=== PATIENT | male | born 1940 | race Caucasian/White ===

== ENCOUNTER 2017-01-12 09:52 | Emergency (ER) | payer MEDICARE, BC ==
[2017-01-12] MEDS ORDERED: Sodium Chloride 0.9% 10 ML Syringe FLUSH PRN (10:13)
[2017-01-12] MEDS ORDERED: Sodium Chloride 0.9% 1,000 ML IV SCH ×2 (10:15→12:45)
--- NOTE | 2017-01-12 10:39 | EDM.PDOC ---
ED HPI GENERAL MEDICAL PROBLEM - General Chief Complaint: General Stated Complaint: abd pain LLQ Time Seen by Provider: 01/12/17 10:15 Source of Information: Reports: Patient History Limitations: Reports: No limitations - History of Present Illness INITIAL COMMENTS - FREE TEXT/NARRATIVE: The patient presents with complaint of left costophrenic angle pain that radiates down the left flank to the LLQ and down towards the testicle. He reports the pain has come and gone for the past two days and this morning prior to arrival in the ER the pain was up to 8/10 in severity and he states it is cramping and stabbing. He currently rates the pain at 4/10. He denies nausea, vomiting, and diarrhea. He denies hematochezia or melena. He denies other symptoms or complaints. Left Lower Abdominal Pain Score (Numeric/FACES): 6 - Related Data Allergies Allergy/AdvReac Type Severity Reaction Status Date / Time dutasteride [From Avodart] Allergy Unknown Cannot Verified 01/12/17 09:54 Remember [id number] Reductase Allergy Muscle Verified 01/12/17 09:54 Inhibitor Weakness Home Meds: Home Meds Aspirin [Ecotrin] 325 mg PO DAILY 01/12/17 [History] Cinnamon Bark [Cinnamon] 500 mg PO DAILY 01/12/17 [History] Fenofibrate,Micronized [Fenofibrate] 134 mg PO DAILY 01/12/17 [History] Lisinopril 10 mg PO DAILY@1800 01/12/17 [History] Multivitamin [Multivitamins] 1 each PO DAILY 01/12/17 [History] metFORMIN [Glucophage] 500 mg PO DAILY 01/12/17 [History] Past Medical History - Past Health History Medical/Surgical History: Denies Medical/Surgical History Genitourinary History: Reports: Renal calculus (Multiple in past.) ED ROS GENERAL - Review of Systems Review Of Systems: ROS reveals no pertinent complaints other than HPI. ED EXAM, GENERAL - Physical Exam Exam: See Below Exam Limited By: No limitations General Appearance: alert, WD/WN, no apparent distress Eye Exam: bilateral eye: EOMI, normal inspection, PERRL Ears: normal external exam, normal canal, hearing grossly normal, normal TMs Ear Exam: bilateral ear: auricle normal, canal normal, TM normal Nose: normal inspection, normal mucosa, no blood Throat/Mouth: Normal inspection, Normal lips, Normal teeth, Normal gums, Normal oropharynx, Normal voice, No airway compromise Head: atraumatic, normocephalic Neck: normal inspection, supple, non-tender, full range of motion. No: lymphadenopathy (L), lymphadenopathy (R), tender lateral, tender midline Respiratory/Chest: no respiratory distress, lungs clear, normal breath sounds, no accessory muscle use, chest non-tender Cardiovascular: normal peripheral pulses, regular rate, rhythm, no edema, no gallop, no murmur, no rub Peripheral Pulses: 2+: radial (L), radial (R), dorsalis pedis (L), dorsalis pedis (R) GI/Abdominal: normal bowel sounds, soft, no organomegaly, no distention, tender (Mild diffuse tenderness LLQ. ). No: distended, guarding, rigid, rebound Back Exam: normal inspection, full range of motion, CVA tenderness (L). No: CVA tenderness (R), paraspinal tenderness, vertebral tenderness Extremities: normal inspection, normal range of motion, non-tender, no pedal edema, normal capillary refill Neurological: alert, oriented, CN II-XII intact, normal cognition, normal gait, normal reflexes, no motor/sensory deficits Psychiatric: normal affect, normal mood Skin Exam: Warm, Dry, Intact, Normal color, No rash Lymphatic: no adenopathy Course - Vital Signs Last Recorded V/S: Last Vital Signs Temp 36.4 C 01/12/17 09:58 Pulse 62 01/12/17 10:54 Resp 16 01/12/17 10:54 BP 134/75 01/12/17 10:54 Pulse Ox 92 L 01/12/17 10:54 - Orders/Labs/Meds Orders: Active Orders 24 hr Category Date Time Status Peripheral IV Care [RC] . DIRECTED Care 01/12/17 10:13 Active Sodium Chloride 0.9% [Normal Saline] 1,000 ml Med 01/12/17 10:15 Active IV ASDIRECTED Sodium Chloride 0.9% [Normal Saline] 1,000 ml Med 01/12/17 12:45 Active IV ASDIRECTED Sodium Chloride 0.9% [Saline Flush] Med 01/12/17 10:13 Active 10 ml FLUSH ASDIRECTED PRN Tamsulosin [Flomax] Med 01/12/17 13:11 Once 0.4 mg PO ONETIME ONE Peripheral IV Insertion Adult [OM.PC] Routine Oth 01/12/17 10:13 Ordered Medication Orders Sodium Chloride (Normal Saline) 1,000 mls @ 150 mls/hr IV ASDIRECTED QUANG Last Infusion: 01/12/17 11:15 Dose: 999 mls/hr Admin: 01/12/17 10:31 Dose: 150 mls/hr Sodium Chloride (Normal Saline) 1,000 mls @ 999 mls/hr IV ASDIRECTED QUANG Sodium Chloride (Saline Flush) 10 ml FLUSH ASDIRECTED PRN PRN Reason: Keep Vein Open Labs: Laboratory Tests 01/12/17 01/12/17 01/12/17 Range/Units 10:20 10:20 11:00 WBC 7.6 (4.0-10.2) K/uL RBC 5.66 H (4.33-5.41) M/uL Hgb 16.9 H (13.1-16.8) g/dL Hct 50.7 H (39.0-49.0) % MCV 89.6 (84.0-98.0) fL MCH 29.9 (28.2-33.3) pg MCHC 33.3 (31.7-36.0) g/dL RDW 12.9 (11.2-14.1) % Plt Count 146 L (150-350) K/uL Neut % (Auto) 67.1 (45.0-80.0) % Lymph % (Auto) 26.4 (10.0-50.0) % [place] % (Auto) 4.9 (2.0-14.0) % Eos % (Auto) 1.2 (0.0-5.0) % Baso % (Auto) 0.4 (0.0-2.0) % Neut # (Auto) 5.08 (1.40-7.00) K/uL Lymph # (Auto) 2.00 (0.50-3.50) K/uL [place] # (Auto) 0.37 (0.00-1.00) K/uL Eos # (Auto) 0.09 (0.00-0.50) K/uL Baso # (Auto) 0.03 (0.00-0.20) K/uL Sodium 142 (136-145) mmol/L Potassium 4.2 (3.5-5.1) mmol/L Chloride 104 (98-107) mmol/L Carbon Dioxide 30.9 (21.0-32.0) mmol/L BUN 21 H (7-18) mg/dL Creatinine 1.26 H (0.51-1.17) mg/dL Est Cr Clr Drug Dosing TNP Estimated GFR (MDRD) 56 mL/min Glucose 194 H (74-106) mg/dL Calcium 9.2 (8.5-10.1) mg/dL Total Bilirubin 0.6 (0.2-1.0) mg/dL AST 64 H (15-37) U/L ALT 73 (12-78) U/L Alkaline Phosphatase 40 L (46-116) IU/L C-Reactive Protein < 0.1 (<=0.9) mg/dL Total Protein 7.3 (6.4-8.2) g/dL Albumin 4.0 (3.4-5.0) g/dL Specimen Type Urincc Urine Color Yellow Urine Appearance Slightly cloudy Urine pH 5.5 (5.0-9.0) Ur Specific [place] 1.025 (1.005-1.030) Urine Protein Trace H (NEGATIVE) mg/dL Urine Glucose (UA) Negative (NEGATIVE) mg/dL Urine Ketones Negative (NEGATIVE) mg/dL Urine Occult Blood Large H (NEGATIVE) Urine Nitrite Negative (NEGATIVE) Urine Bilirubin Negative (NEGATIVE) Urine Urobilinogen 0.2 (0.2-1.0) E.U./dL Ur Leukocyte Esterase Negative (NEGATIVE) Urine RBC 40-50 H /HPF Urine WBC 0-5 /HPF Urine Bacteria Few (NONE TO FEW) /HPF Meds: Medications Generic Name Dose Route Start Last Admin Trade Name Freq PRN Reason Stop Dose Admin Sodium Chloride 1,000 mls @ 150 mls/hr 01/12/17 10:15 01/12/17 11:15 Normal Saline IV 999 mls/hr ASDIRECTED QUANG Infusion Sodium Chloride 1,000 mls @ 999 mls/hr 01/12/17 12:45 Normal Saline IV ASDIRECTED QUANG Sodium Chloride 10 ml 01/12/17 10:13 Saline Flush FLUSH ASDIRECTED PRN Keep Vein Open Discontinued Medications Generic Name Dose Route Start Last Admin Trade Name Freq PRN Reason Stop Dose Admin Ketorolac Tromethamine 30 mg 01/12/17 10:41 01/12/17 10:46 Toradol IVPUSH 01/12/17 10:42 30 mg ONETIME ONE Administration Departure - Departure Time of Disposition: 13:15 Disposition: Home, Self-Care 01 Clinical Impression: Kidney stone on left side, Renal insufficiency, mild, Hyperglycemia, LFT elevation, Alkaline phosphatase elevation Referrals: Christina Sexton NP [Primary Care Provider] - Forms: ED Department Discharge - My Orders Last 24 Hours: My Active Orders 01/12/17 10:13 Peripheral IV Care [RC] . DIRECTED Sodium Chloride 0.9% [Saline Flush] 10 ml FLUSH ASDIRECTED PRN Peripheral IV Insertion Adult [OM.PC] Routine 01/12/17 10:15 Sodium Chloride 0.9% [Normal Saline] 1,000 ml IV ASDIRECTED 01/12/17 12:45 Sodium Chloride 0.9% [Normal Saline] 1,000 ml IV ASDIRECTED 01/12/17 13:11 Tamsulosin [Flomax] 0.4 mg PO ONETIME ONE - Assessment/Plan Last 24 Hours: My Active Orders 01/12/17 10:13 Peripheral IV Care [RC] . DIRECTED Sodium Chloride 0.9% [Saline Flush] 10 ml FLUSH ASDIRECTED PRN Peripheral IV Insertion Adult [OM.PC] Routine 01/12/17 10:15 Sodium Chloride 0.9% [Normal Saline] 1,000 ml IV ASDIRECTED 01/12/17 12:45 Sodium Chloride 0.9% [Normal Saline] 1,000 ml IV ASDIRECTED 01/12/17 13:11 Tamsulosin [Flomax] 0.4 mg PO ONETIME ONE Assessment:: Kidney Stone on Left Mild renal insufficiency Hyperglycemia Elevated LFT Elevated Alkaline Phosphatase Plan: 1. Given Toradol 30 mg IV with resolution of pain. 2. NS 1 L bolus in ER. 3. Flomax 0.4 mg PO x 1 in ER. 4. Strained urine in ER and no stone passed. 5. Prescription for Flomax 0.4 mg PO daily, 10 days, 0 refills. 6. Prescription for [place] 5/325 mg tabs, 1 tab every 4-6 hours PRN pain, 12 tabs , 0 refills. 7. Increase fluid intake, drink at least twelve 8 ounce glasses of water daily. 8. Filter urine and collect stone if passed and put in Ziploc bag and bring to PCP. 9. Followup with PCP for next available for kidney stone, hyperglycemia, mild renal insufficiency, and mildly elevated LFT/alkaline phosphatase. 10. Return to ER with increased/refractory pain, inability to urinate, blood in urine, or other emergent concerns.
[2017-01-12] MEDS ORDERED: Ketorolac 30 MG/ML SDV IVPUSH ONE (10:41)
[2017-01-12 10:52] LABS: CHLORIDE,CL 104 mmol/L (98-107); SODIUM,NA 142 mmol/L (136-145)
[2017-01-12] MEDS ORDERED: Tamsulosin 0.4 MG Cap.ER PO ONE (13:11)
[2017-01-13 21:30] VITALS: BP 138/72
== END 2017-01-12 13:44 | disposition home or self-care (01) ==
LOC: LL.ED 09:52
DX: N28.9 Disorder of kidney and ureter, unspecified (principal); R73.9 Hyperglycemia, unspecified; N20.0 Calculus of kidney; R74.8 Abnormal levels of other serum enzymes; Z88.8 Allergy status to other drugs, medicaments and biological substances; Z79.82 Long term (current) use of aspirin; Z79.899 Other long term (current) drug therapy
CPT/HCPCS: 36415; 80053; 81001; 85025; 86140; 96361; 96374; 99283; 99284; A9270; J1885; J7030

== ENCOUNTER → 2017-02-09 | Day surgery (SDC) | payer MEDICARE, BC ==
[~2017-02-09] MED LIST: Lactated Ringers 1,000 ML IV SCH; Lidocaine 2% 5 ML SDV ONE; Midazolam 1 MG/ML 2 ML SDV ONE; Propofol 200 MG/20 ML SDV ONE; Sodium Chloride 0.9% 10 ML Syringe FLUSH PRN; fentaNYL 100 MCG/2 ML SDV ONE
--- NOTE | 2017-02-09 12:35 | PCM.PN ---
- General Info Date of Service: 02/09/17 - Review of Systems Systems Review Comment:: 76-year-old male presents today for EGD and colonoscopy. He notes that recently is been having some upper abdominal pain and nausea. He does also have episodes of acid reflux. It is been many years since his last colonoscopy. He is due for colon cancer screening. I discussed the proposed upper and lower endoscopy with the patient. Risks such as but not limited to bleeding and GI injury or reviewed. He appears to understand and agrees to proceed. - Patient Data Vitals - most recent: Last Vital Signs Temp 98.1 F 02/09/17 12:01 Pulse 73 02/09/17 12:01 Resp 18 02/09/17 12:01 BP 143/80 H 02/09/17 12:01 Pulse Ox 94 L 02/09/17 12:01 Weight - most recent: 92.986 kg Med Orders - Current: Current Medications Lactated Ringer's (Ringers, Lactated) 1,000 mls @ 125 mls/hr IV ASDIRECTED QUANG Last Admin: 02/09/17 12:27 Dose: 125 mls/hr Sodium Chloride (Saline Flush) 10 ml FLUSH ASDIRECTED PRN PRN Reason: Keep Vein Open Discontinued Medications Fentanyl (Sublimaze) Confirm Administered Dose 100 mcg .ROUTE .STK-MED ONE Stop: 02/09/17 12:24 Midazolam HCl (Versed 1 Mg/Ml) Confirm Administered Dose 2 mg .ROUTE .STK-MED ONE Stop: 02/09/17 12:24 Propofol (Diprivan 20 Ml) Confirm Administered Dose 400 mg .ROUTE .STK-MED ONE Stop: 02/09/17 12:25 - Problem List Review Problem List Initiated/Reviewed/Updated: Yes - Assessment Assessment:: Epigastric pain Nausea Colon cancer screening - Plan Plan:: Colonoscopy and EGD
--- NOTE | 2017-02-09 13:39 | PCM.OPNOTE ---
- General Post-Op/Procedure Note Date of Surgery/Procedure: 02/09/17 Operative Procedure(s): EGD with Biopsy and Colonoscopy Findings: Mild gastritis in distal antrum Normal colon Pre Op Diagnosis: Epigastric pain. Colon cancer screening with altered bowel pattern Post-Op Diagnosis: Gastritis. Normal colon Anesthesia Technique: MAC Primary Surgeon: Daryl Cross Pathology: Biopsies of antrum and GE junction Output, Urine Amount: 0 EBL in mLs: 2 Complications: None Condition: Good Free Text/Narrative:: Intake & Output 02/08/17 02/09/17 02/09/17 22:59 06:59 14:59 Intake Total 900 Balance 900
[2017-02-09 14:22] VITALS: BP 121/53
--- NOTE | 2017-02-09 18:25 | OR ---
Date of Procedure: 02/09/2017 PREOPERATIVE DIAGNOSES: 1. Epigastric pain. 2. Change in bowel habits. POSTOPERATIVE DIAGNOSES: 1. Gastritis. 2. Normal colon. PROCEDURE PERFORMED: Esophagogastroduodenoscopy with biopsy and colonoscopy. INDICATIONS FOR SURGERY: This 76-year-old male has been having some recent symptoms of epigastric pain and some nausea. He comes for upper endoscopy. The patient also has had some change in bowel pattern and it has been several years since his last colonoscopy. FINDINGS: On upper endoscopy, the esophagus and duodenum appeared normal. The stomach appears normal with the exception of some areas of mild hyperemia in the distal antrum near the pylorus. No definite ulcers were seen. No other areas of inflammation or anatomic abnormality are noted. The patient's colon appears normal. PROCEDURE: The patient was taken to the operating room. He was given intravenous sedation and with him in the left lateral decubitus position, the esophagus was intubated with the Olympus gastroscope and was carefully advanced under direct visualization through the esophagus, stomach, and into the duodenal where examination to the 3rd portion was performed. Full examination of the visualized portion of the duodenum was carried out. The scope was withdrawn back into the stomach where retroflexed examination of the fundus was performed including full examination of the stomach. There was some hyperemia of the mucosa distally in the stomach and biopsies of the antrum were taken in this area to rule out H. pylori. The GE junction was then carefully examined. This did not appear significantly abnormal, but because of the patient's symptoms, biopsies of the GE junction at 41 cm from the incisors. The scope was then withdrawn and attention was turned to colonoscopy. Digital rectal exam shows no rectal masses. The Olympus colonoscope was inserted into the rectum. Retroflexed examination of the rectal canal was performed. The scope was then carefully advanced under direct visualization through the entire length of the colon until cecum was reached. Cecal acquisition was confirmed by noting the normal internal cecal anatomy including the appendiceal orifice and ileocecal valve. After examining the cecum thoroughly, the scope was withdrawn sequentially re-examining the colonic segments until the entire colon and rectum had been fully examined. The scope was removed and the patient was taken from the operating room in satisfactory condition. ESTIMATED BLOOD LOSS: Minimal. COMPLICATIONS: None. PROGNOSIS: Good. ROXY Cross MD /[id number]
== END | disposition home or self-care (01) ==
LOC: LL.SDS 11:40
PROVIDERS: ATTEND Surgery
PROC: 0DB68ZZ Excision of Stomach, Via Natural or Artificial Opening Endoscopic (ICD-10-PCS; principal; 2017-02-09)
PROC: 0DB48ZZ Excision of Esophagogastric Junction, Via Natural or Artificial Opening Endoscopic (ICD-10-PCS; 2017-02-09)
PROC: 0DJD8ZZ Inspection of Lower Intestinal Tract, Via Natural or Artificial Opening Endoscopic (ICD-10-PCS; 2017-02-09)
DX: K29.70 Gastritis, unspecified, without bleeding (principal); R19.4 Change in bowel habit; R10.13 Epigastric pain; E11.9 Type 2 diabetes mellitus without complications; E78.1 Pure hyperglyceridemia; R01.1 Cardiac murmur, unspecified; Z96.651 Presence of right artificial knee joint
CPT/HCPCS: 43239; 45378; 82962; J2250; J2704; J3010; J7120; 00740; 88305

== ENCOUNTER 2018-06-20 19:45 | Emergency (ER) | payer MEDICARE, BC ==
[2018-06-20 19:51] VITALS: BP 158/75
--- NOTE | 2018-06-20 21:03 | EDM.PDOC ---
ED HPI GENERAL MEDICAL PROBLEM - General Chief Complaint: General Stated Complaint: fall, left arm pain, back pain Time Seen by Provider: 06/20/18 19:45 Source of Information: Reports: Patient, Family History Limitations: Reports: No Limitations - History of Present Illness INITIAL COMMENTS - FREE TEXT/NARRATIVE: Patient is a 77-year-old who was driving from [facility] back home from [place] spend the night at his [id number] was going out to the back patio took a couple steps backwards and fell into the window well which is about 6 feet. Initially patient had a scrape over his skull also complained of left arm discomfort mid chest and back pain which has progressed the last day this happened about 30 hours ago and is here to be evaluated Onset: Gradual Duration: Day(s): (A day and a half ago), Getting Worse Location: Reports: Head, Chest, Back, Upper Extremity, Left Quality: Reports: Ache, Stabbing (Takes his breath away in the lower back) Severity: Severe (When he ambulates is about a 10 out of 10) Improves with: Reports: Immobilization Worsens with: Reports: Movement Context: Reports: Trauma Associated Symptoms: Reports: Chest Pain (Back pain left arm) Treatments CIRCUIT JUDGE: Reports: NSAIDS Back Pain Score (Numeric/FACES): 3 Left Arm Pain Score (Numeric/FACES): 3 - Related Data Allergies Allergy/AdvReac Type Severity Reaction Status Date / Time dutasteride [From Avodart] Allergy Unknown Cannot Verified 06/20/18 19:54 Remember Wrhbpjh-Tho-Faa Reductase Allergy Muscle Verified 06/20/18 19:54 Inhibitor Weakness Home Meds: Home Meds Aspirin [Ecotrin] 325 mg PO BEDTIME 01/12/17 [History] Cinnamon Bark [Cinnamon] 500 mg PO DAILY 01/12/17 [History] Fenofibrate,Micronized [Fenofibrate] 134 mg PO BEDTIME 01/12/17 [History] Lisinopril 10 mg PO BEDTIME 01/12/17 [History] Multivitamin [Multivitamins] 1 each PO DAILY 01/12/17 [History] metFORMIN [Glucophage] 500 mg PO BID 01/12/17 [History] Cholecalciferol (Vitamin D3) [Vitamin D3] 1,000 unit PO DAILY 02/09/17 [History] Magnesium 250 mg PO DAILY 02/09/17 [History] Simvastatin 40 mg PO BEDTIME 02/09/17 [History] Ibuprofen [Advil] 4 tab PO Q6H 06/20/18 [History] Past Medical History - Past Health History Medical/Surgical History: Denies Medical/Surgical History HEENT History: Reports: Impaired Vision Other HEENT History: wears glasses Cardiovascular History: Reports: High Cholesterol, Hypertension, Other (See Below) Other Cardiovascular History: 1st degree heart block, right bundle branch block , diastolic dysfunction Respiratory History: Reports: None Gastrointestinal History: Reports: Cholelithiasis, GERD Other Gastrointestinal History: elevated liver function tests, fatty infiltration of the liver Genitourinary History: Reports: BPH Musculoskeletal History: Reports: Arthritis, Back Pain, Chronic Neurological History: Reports: Other (See Below) Other Neuro History: blood clot in the left eye Psychiatric History: Reports: None Endocrine/Metabolic History: Reports: Diabetes, Type II, Obesity/BMI 30+ Hematologic History: Reports: None Immunologic History: Reports: None Oncologic (Cancer) History: Reports: None Dermatologic History: Reports: None - Past Surgical History GI Surgical History: Reports: Appendectomy, Cholecystectomy, Colonoscopy Male Surgical History: Reports: TURP-Transurethral Resection of Prostate Neurological Surgical History: Reports: Other (See Below) Other Neurological Surgeries/Procedures: multiple back surgeries Musculoskeletal Surgical History: Reports: Arthroscopic Knee, Other (See Below) Other Musculoskeletal Surgeries/Procedures:: Back Surgery Social & Family History - Tobacco Use Smoking Status *Q: Never Smoker - Caffeine Use Caffeine Use: Reports: Soda - Recreational Drug Use Recreational Drug Use: No ED ROS GENERAL - Review of Systems Review Of Systems: See Below Constitutional: Reports: No Symptoms HEENT: Reports: No Symptoms Respiratory: Reports: Shortness of Breath (With deep breathing) Cardiovascular: Reports: No Symptoms Endocrine: Reports: No Symptoms GI/Abdominal: Reports: No Symptoms : Reports: No Symptoms Musculoskeletal: Reports: Neck Pain, Arm Pain, Back Pain Skin: Reports: Erythema (Top of the head) Neurological: Reports: No Symptoms Psychiatric: Reports: No Symptoms Hematologic/Lymphatic: Reports: No Symptoms Immunologic: Reports: No Symptoms ED EXAM, GENERAL - Physical Exam Exam: See Below Exam Limited By: No Limitations General Appearance: Alert, WD/WN, No Apparent Distress Eye Exam: Bilateral Eye: EOMI, PERRL Ears: Normal External Exam, Normal Canal, Hearing Grossly Normal, Normal TMs Ear Exam: Bilateral Ear: Auricle Normal, Canal Normal, TM normal Nose: Normal Inspection, Normal Mucosa, No Blood Throat/Mouth: Normal Inspection, Normal Lips, Normal Teeth, Normal Gums, Normal Oropharynx, Normal Voice, No Airway Compromise Head: Atraumatic, Normocephalic Neck: Normal Inspection, Supple, Non-Tender, Full Range of Motion Respiratory/Chest: Decreased Breath Sounds Cardiovascular: Normal Peripheral Pulses, Regular Rate, Rhythm, No Edema, No Gallop, No JVD, No Murmur, No Rub GI/Abdominal: Normal Bowel Sounds, Soft, Non-Tender, No Organomegaly, No Distention, No Abnormal Bruit, No Mass (Male) Exam: Deferred Rectal (Males) Exam: Deferred Back Exam: Decreased Range of Motion, Vertebral Tenderness Extremities: Arm Pain, Increased Warmth Neurological: Alert, Oriented, CN II-XII Intact, Normal Cognition, Normal Gait, Normal Reflexes, No Motor/Sensory Deficits Psychiatric: Normal Affect, Normal Mood Skin Exam: Warm, Dry, Intact, Normal Color, No Rash Lymphatic: No Adenopathy Course - Vital Signs Last Recorded V/S: Last Vital Signs Temp 99.8 F 06/20/18 19:48 Pulse 67 06/20/18 19:48 Resp 20 06/20/18 19:48 BP 158/75 H 06/20/18 19:48 Pulse Ox 94 L 06/20/18 19:48 - Orders/Labs/Meds Orders: Active Orders 24 hr Category Date Time Status Chest 2V [CR] Stat Exams 06/20/18 20:24 Ordered Elbow 2V Lt [CR] Stat Exams 06/20/18 20:20 Ordered Lumbar Spine 2 or 3V [CR] Stat Exams 06/20/18 20:22 Ordered Thoracic Spine 2V [CR] Stat Exams 06/20/18 20:21 Ordered BASIC METABOLIC PANEL,BMP [CHEM] Stat Lab 06/20/18 20:18 Ordered INR,PT,PROTHROMBIN TIME [COAG] Stat Lab 06/20/18 20:19 Ordered PTT,PARTIAL THROMBOPLSTIN TIME [COAG] Stat Lab 06/20/18 20:18 Ordered Labs: Laboratory Tests 06/20/18 Range/Units 20:45 WBC 9.7 (4.0-10.2) K/uL RBC 5.33 (4.33-5.41) M/uL Hgb 16.3 (13.1-16.8) g/dL Hct 48.6 (39.0-49.0) % MCV 91.2 (84.0-98.0) fL MCH 30.6 (28.2-33.3) pg MCHC 33.5 (31.7-36.0) g/dL RDW 13.0 (11.2-14.1) % Plt Count 133 L (150-350) K/uL Neut % (Auto) 52.9 (45.0-80.0) % Lymph % (Auto) 38.3 (10.0-50.0) % [place] % (Auto) 7.5 (2.0-14.0) % Eos % (Auto) 1.1 (0.0-5.0) % Baso % (Auto) 0.2 (0.0-2.0) % Neut # (Auto) 5.11 (1.40-7.00) K/uL Lymph # (Auto) 3.71 H (0.50-3.50) K/uL [place] # (Auto) 0.73 (0.00-1.00) K/uL Eos # (Auto) 0.11 (0.00-0.50) K/uL Baso # (Auto) 0.02 (0.00-0.20) K/uL Departure - Departure Time of Disposition: 21:32 Disposition: Home, Self-Care 01 Clinical Impression: Back pain Qualifiers: Back pain location: low back pain Chronicity: acute Back pain laterality: midline Sciatica presence: unspecified whether sciatica present Qualified Code(s ): M54.5 - Low back pain - Discharge Information *PRESCRIPTION DRUG MONITORING PROGRAM REVIEWED*: No *COPY OF PRESCRIPTION DRUG MONITORING REPORT IN PATIENT SHAYNA: Yes Instructions: Back Pain, Adult, [id number] Referrals: Christina Sexton NP [Primary Care Provider] - Care Plan Goals: Patient was seen evaluated x-rays obtained revealed no fractures no bone deformities. Assessment is lower back pain secondary to fall we will give him Toradol 1 tablet every 6 hours for pain cyclobenzaprine 1 tablet every 8 hours follow-up with primary - My Orders Last 24 Hours: My Active Orders 06/20/18 20:18 BASIC METABOLIC PANEL,BMP [CHEM] Stat PTT,PARTIAL THROMBOPLSTIN TIME [COAG] Stat 06/20/18 20:19 INR,PT,PROTHROMBIN TIME [COAG] Stat 06/20/18 20:20 Elbow 2V Lt [CR] Stat 06/20/18 20:21 Thoracic Spine 2V [CR] Stat 06/20/18 20:22 Lumbar Spine 2 or 3V [CR] Stat 06/20/18 20:24 Chest 2V [CR] Stat - Assessment/Plan Last 24 Hours: My Active Orders 06/20/18 20:18 BASIC METABOLIC PANEL,BMP [CHEM] Stat PTT,PARTIAL THROMBOPLSTIN TIME [COAG] Stat 06/20/18 20:19 INR,PT,PROTHROMBIN TIME [COAG] Stat 06/20/18 20:20 Elbow 2V Lt [CR] Stat 06/20/18 20:21 Thoracic Spine 2V [CR] Stat 06/20/18 20:22 Lumbar Spine 2 or 3V [CR] Stat 06/20/18 20:24 Chest 2V [CR] Stat
== END 2018-06-20 21:40 | disposition home or self-care (01) ==
LOC: LL.ED 19:45
DX: M54.5 Low back pain (principal); I10 Essential (primary) hypertension; E11.9 Type 2 diabetes mellitus without complications; E66.9 Obesity, unspecified; Z79.84 Long term (current) use of oral hypoglycemic drugs; Z79.899 Other long term (current) drug therapy; Z79.82 Long term (current) use of aspirin; Z88.8 Allergy status to other drugs, medicaments and biological substances; W19.XXXA Unspecified fall, initial encounter
CPT/HCPCS: 36415; 71046; 72070; 72100; 73070-LT; 80048; 85025; 85610; 85730; 99283

== ENCOUNTER 2018-09-17 10:25 | Inpatient (IN) | payer MEDICARE, BC ==
[2018-09-17] MEDS ORDERED: Famotidine 20 MG/2 ML SDV IVPUSH ONE (10:31)
[2018-09-17] MEDS ORDERED: Metoprolol Tartrate 5 MG/5 ML SDV IVPUSH ONE (10:31)
[2018-09-17] MEDS ORDERED: Ticagrelor 90 MG Tab PO ONE (10:31)
[2018-09-17] MEDS ORDERED: Aspirin 81 MG Tab.Chew CHEW ONE (10:31)
--- NOTE | 2018-09-17 10:31 | EDM.PDOC ---
ED HPI GENERAL MEDICAL PROBLEM - General Chief Complaint: General Stated Complaint: SOB Time Seen by Provider: 09/17/18 10:25 Source of Information: Reports: Patient, Old Records ([facility] chart/EMR), Other (Oral EMR) History Limitations: Reports: No Limitations - History of Present Illness INITIAL COMMENTS - FREE TEXT/NARRATIVE: The patient drove himself to [facility] via private automobile this morning with limited history with no significant evaluation by his regular provider, RAUL Pandya, from [facility] in [place], who did refer the patient to the emergency room for further evaluation. He does have a one-month history of moderate dyspnea with minimal exertion, which has progressed during the last week with additional episodes of intermittent 4/10 bilateral anterior chest pressure during the last couple of days including borderline orthostasis and dizziness.. He does have a known history of recurrent CHF and recently diagnosed mild pericardial effusion as below. He did take his morning medications, however note normally takes is aspirin at that time. The patient denies any heart flutter, orthopnea, diaphoresis, paresthesias, etc. No recent history of abdominal pain, heartburn, nausea, diarrhea, melena, gross hematochezia, or any food intolerance, including fatty foods, etc. with normal bowel movement earlier this morning. He denies any gross hematuria, colic, or other UTI symptoms. The patient also denies any recent fever, cough, wheezing, etc.. No history of recent headaches, visual changes, diplopia, change in mental status, or other change in neurological status. Onset: Gradual Duration: Other (As above) Location: Reports: Chest. Denies: Head, Face, Neck, Abdomen, Back, Upper Extremity, Left, Upper Extremity, Right, Lower Extremity, Left, Radiates to Quality: Reports: Pressure, Same as Previous Episode Severity: Moderate Improves with: Reports: Rest Worsens with: Reports: Movement Context: Denies: Sick Contact, Trauma Associated Symptoms: Reports: Chest Pain, Shortness of Breath. 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 (see below) (Morning medications) Bilateral Anterior Chest Pain Score (Numeric/FACES): 4 - Related Data Allergies Allergy/AdvReac Type Severity Reaction Status Date / Time dutasteride [From Avodart] Allergy Unknown Cannot Verified 09/17/18 10:40 Remember [id number]-[id number] Reductase Allergy Muscle Verified 09/17/18 10:40 Inhibitor Weakness Home Meds: Home Meds Cinnamon Bark [Cinnamon] 500 mg PO DAILY 01/12/17 [History] Fenofibrate,Micronized [Fenofibrate] 134 mg PO BEDTIME 01/12/17 [History] Lisinopril 10 mg PO BEDTIME 01/12/17 [History] metFORMIN [Glucophage] 500 mg PO BIDMEALS 01/12/17 [History] Cholecalciferol (Vitamin D3) [Vitamin D3] 1,000 unit PO DAILY 02/09/17 [History] Magnesium 250 mg PO DAILY 02/09/17 [History] Simvastatin 40 mg PO BEDTIME 02/09/17 [History] Ibuprofen [Advil] 4 tab PO Q6H PRN 06/20/18 [History] Aspirin 325 mg PO DAILY 09/17/18 [History] Atenolol [Tenormin] 50 mg PO DAILY 09/17/18 [History] Cyanocobalamin (Vitamin B-12) [B-12] 2,500 mcg SL DAILY 09/17/18 [History] Cyclobenzaprine [Flexeril] 10 mg PO Q8HR PRN 09/17/18 [History] Past Medical History HEENT History: Reports: Allergic Rhinitis, Cataract, Impaired Vision, Macular Degeneration. Denies: Glaucoma, Hard of Hearing, Otitis Media Other HEENT History: Patient wears glasses. 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 Dry eye syndrome. Left eye arterial thrombosis. Cardiovascular History: Reports: Afib, Arrhythmia, Cardiomyopathy, Heart Failure , Heart Murmur, High Cholesterol, Hypertension, PVD, Other (See Below). Denies : Aneurysm, Blood Clots/VTE/DVT, Bypass, CAD, ID, Pacemaker, Syncope Other Cardiovascular History: 1st degree heart block, right bundle branch block , grade 2 diastolic dysfunction echocardiogram with additional moderate cardiomegaly, moderate aortic valve stenosis with mild aortic valve insufficiency by echocardiogram in 2018. Small pericardial effusion initially diagnosed on 01/05/18 with history of CHF. Dyslipidemia. Moderate bilateral carotid occlusive disease. History of intermittent brief atrial fibrillation PVCs with no anticoagulation therapy. Respiratory History: Reports: Bronchitis, Recurrent, Intubation, Previous. Denies: Asthma, COPD, Intubation, Difficult, PE, Pneumothorax, Sleep Apnea, TB Gastrointestinal History: Reports: Cholelithiasis, Diverticulosis, Gastritis, GERD, Helicobacter Pylori. Denies: Celiac Disease, Chronic Constipation, Chronic Diarrhea, Colon Polyp, Fecal Incontinence, GI Bleed, Hepatitis, Inflammatory Bowel Disease, Irritable Bowel Syndrome, Jaundice, Pancreatitis, PUD Other Gastrointestinal History: History of elevated liver function tests likely secondary to fatty infiltration of the liver on his dyslipidemia. Previously treated H. pylori infection in 2002. Mild splenomegaly. Mild colitis in 2002. Genitourinary History: Reports: BPH, Chronic Renal Insuffiency, Prostate Disorder, Renal Calculus, Retention, Urinary, Urinary Incontinence, Other (See Below). Denies: Acute Renal Failure, STD, UTI, Recurrent Other Genitourinary History: Recurrent bilateral urolithiasis with spontaneous passage with last left sided episode on 01/12/17. BPH with elevated PSAs with negative workup including serial prostate biopsies as below. Musculoskeletal History: Reports: Arthritis, Back Pain, Chronic, Gout, Neck Pain , Chronic, Osteoarthritis, Other (See Below). Denies: Fracture, Osteoporosis, RA, SLE Other Musculoskeletal History: Hyperuricemia Neurological History: Reports: None. Denies: Cerebral Aneurysms, Concussion, Headaches, Chronic, Head Trauma, Migraines, MS, Neuropathy, Diabetic, Neuropathy , Peripheral, Parkinson's, Seizure, TIA, Vertigo Psychiatric History: Reports: None. Denies: Abuse, Victim of, ADD, ADHD, Addiction, Anxiety, Depression, Psych Hospitalization(s), Psychosis, PTSD, Suicide Attempt, Suicidal Ideation Endocrine/Metabolic History: Reports: Diabetes, Type II, Obesity/BMI 30+, Vitamin D Deficiency, Other (See Below). Denies: Diabetes, Type I, Diabetes Mellitus, Type 3c, Hypothyroidism, IDDM Other Endocrine/Metabolic History: Hypomagnesemia. Hematologic History: Reports: B12 Deficiency, Other (See Below). Denies: Anemia , Blood Transfusion(s), Iron Deficiency Other Hematologic History: Erythrocytosis and thrombocytopenia. Polycythemia. Immunologic History: Reports: None. Denies: AIDS, HIV, SLE Oncologic (Cancer) History: Reports: None. Denies: Basal Cell Carcinoma, Bladder, Cervix, Colon, Hodgkin's Lymphoma, Leukemia, Lymphoma, Malignant Melanoma, Non-Hodgkin's Lymphoma, Prostate, Squamous Cell Carcinoma Dermatologic History: Reports: Other (See Below). Denies: Eczema, Psoriasis, Venous Stasis Dermatitis Other Dermatologic History: History of cervical second-degree benitez in early 2002. - Infectious Disease History Infectious Disease History: Reports: Chicken Pox, Helicobacter Pylori, Measles, Mumps, Other (See Below). 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 - Past Surgical History Head Surgeries/Procedures: Reports: None HEENT Surgical History: Reports: Adenoidectomy, Tonsillectomy, Other (See Below) . Denies: Cataract Surgery, Eye Surgery, LASIK, Myringotomy w Tube(s), Naso- Sinus Surgery, Oral Surgery Other HEENT Surgeries/Procedures: Tonsillectomy and adenoidectomy at age 11. Cardiovascular Surgical History: Reports: None. Denies: Varicose Respiratory Surgical History: Reports: None. Denies: Thoracentesis GI Surgical History: Reports: Cholecystectomy, Colonoscopy, EGD, Other (See Below). Denies: Appendectomy, Hernia, Abdominal, Hernia, Inguinal, Hernia Repair/Other, Polypectomy Other GI Surgeries/Procedures: Last EGD and colonoscopy on 02/09/17 with previous evaluation on 06/16/03. Laparoscopic cholecystectomy on 03/20/2000. Male Surgical History: Reports: Prostate Biopsy, TURP-Transurethral Resection of Prostate, Other (See Below). Denies: Circumcision, Vasectomy Other Male Surgeries/Procedures: TURP on 10/07/08. Negative prostate biopsies 3 initially on 10/31/01, then in 2003, and then on 09/17/08. Endocrine Surgical History: Reports: None Neurological Surgical History: Reports: Laminectomy, Lumbar Spine, Other (See Below). Denies: C-Spine, Discectomy, Sacral Spine, Spinal Fusion Other Neurological Surgeries/Procedures: Laminectomy of L3-4 in 2003. Musculoskeletal Surgical History: Reports: Arthroscopic Knee, Joint Replacement , Knee Replacement, Other (See Below). Denies: Arthroscopic Procedure, Carpal Tunnel, Ganglion Cyst, ORIF, Shoulder Surgery Other Musculoskeletal Surgeries/Procedures:: Total knee arthroplasty right- sided on 03/18/15. Oncologic Surgical History: Reports: None Dermatological Surgical History: Reports: Other (See Below). Denies: Plastic Surgical Reconstruction/Repair, Skin Biopsy, Skin Graft Other Dermatological Surgeries/Procedures: Pilonidal cyst excision in September 1959. - Past Imaging History Past Imaging History: Reports: Cardiac Echo (Last echocardiogram on 01/15/18 with multiple previous evaluations including stress echocardiogram on 11/23/17 with ejection fraction of 65%.), Carotid US (11/26/09.), CAT Scan (CT scan of the chest on 08/30/14 and 06/04/14 with CTA of the chest on 10/07/09. CT scan of the abdomen and pelvis on 01/05/18, 06/04/14, 03/25/02, and 02/28/2000. CT of the head on 11/26/09.), HIDA Scan (02/04/2000.), MRI (MRI of the lumbar spine on and 01/12/15.), Stress Testing (Stress echocardiogram as above. Multiple previous negative cardiac stress test with last evaluation on 09/05/13.), Ultrasound (Soft tissue ultrasound of the left leg on 08/08/18 and 06/27/18. Ultrasound of the abdominal aorta on 11/03/17. Abdominal ultrasound on 03/02/99.) , Other (See Below) (IVP on 08/02/99) Social & Family History - Family History Cardiac: Reports: Bypass, CAD, Heart Failure, Hypertension, ID, Other (See Below ) Other Cardiac Family History: Father with fatal ID and CHF at age 75 in his 70s. Paternal uncles 2 with fatal MIs in their 60s. Another paternal uncle with known coronary artery disease. Brother with four-vessel CABG. Mother with fatal CHF at age 81. Mother and daughter with hypertension. Mother with dyslipidemia GI: Reports: Irritable Bowel Syndrome, Other (See Below) Other GI Family History: Mother with irritable bowel syndrome. : Reports: Renal Calculus, Other (See Below) Other Family History: Father and brother with urolithiasis. Psychiatric: Reports: Anxiety, Depression, Other (See Below) Other Psychiatric Family History: Mother with anxiety depression disorder. Paternal uncle with history of depression and alcohol abuse. Endocrine/Metabolic: Reports: Diabetes, type II, Other (See Below) Other Endocrine/Metabolic Family History: Mother with morbid obesity and diabetes mellitus. Oncologic: Reports: Bladder, Breast, Liver, Lung, Other (See Below) Other Oncologic Family History: Paternal uncle with fatal oral versus esophageal cancer likely secondary to tobacco use and his 70s. Maternal aunt with fatal breast cancer in her 70s. Paternal uncle with fatal lung cancer in his 70s with history of tobacco use. Paternal grandmother with fatal liver cancer in her 80s. Maternal aunt with fatal bladder cancer. - Tobacco Use Smoking Status *Q: Former Smoker Tobacco Use Within Last Twelve Months: No Packs/Tins Daily Comment: Very occasional cigar use when celebrating new infants , etc. Smoking Cessation Information Provided To Patient: No Second Hand Smoke Exposure: No Second Hand Smoke Education Provided: No - Caffeine Use Caffeine Use: Reports: Soda (3 sodas per week). Denies: Coffee, Energy Drinks, Tea - Alcohol Use Alcohol Use History: Yes Days Per Week of Alcohol Use: 0 Number of Drinks Per Day: 2 Number of Drinks Per Day Comment: Usually beer on special occasions. No previous DWIs, problems with alcohol abuse, etc. Total Drinks Per Week: 0 Alcohol Use in Last Twelve Months: Yes Alcohol Use Frequency: Rarely - Recreational Drug Use Recreational Drug Use: No Drug Use in Last 12 Months: No Recreational Drug Type: Denies: Amphetamines (Speed), Cocaine, Flunitrazepam, Heroin, Inhalants (Glues, Solvents, Aerosols), LSD (Acid), Marijuana/Hashish, Methamphetamine, Oxycodone - Living Situation & Occupation Living situation: Reports: (1961. 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 ED EXAM, GENERAL - Physical Exam Exam: See Below Exam Limited By: No Limitations General Appearance: Alert, WD/WN, No Apparent Distress Eye Exam: Bilateral Eye: EOMI, Normal Fundi, Normal Inspection (No nystagmus. Patient wearing glasses.), PERRL Ears: Normal External Exam, Normal Canal, Hearing Grossly Normal, Normal TMs Nose: Normal Inspection, Normal Mucosa, No Blood Throat/Mouth: Normal Inspection, Normal Lips, Normal Teeth, Normal Gums, Normal Oropharynx, Normal Voice, No Airway Compromise. No: Dysphagia, Perioral Cyanosis Head: Atraumatic, Normocephalic. No: Facial Swelling, Facial Tenderness, Sinus Tenderness Neck: Supple, Non-Tender, Full Range of Motion, Carotid Bruit (Bilateral carotid bruits versus transmitted heart sounds). No: Lymphadenopathy (L), Lymphadenopathy (R), Thyromegaly Respiratory/Chest: No Respiratory Distress, Lungs Clear, Normal Breath Sounds, No Accessory Muscle Use, Chest Non-Tender. No: Pleural Rub, Retractions Cardiovascular: Normal Peripheral Pulses, Regular Rate, Rhythm, No Edema, No Gallop, No JVD, No Rub, Systolic Murmur (1/6 IVETH of the aortic valve). No: Diastolic Murmur (Not appreciated), Gallop/S3, Gallop/S4, Friction Rub Peripheral Pulses: 2+: Radial (L), Radial (R), Dorsalis Pedis (L), Dorsalis Pedis (R) GI/Abdominal: Normal Bowel Sounds, Soft, Non-Tender, No Organomegaly, No Distention, No Abnormal Bruit, No Mass, Pelvis Stable, Other (Obese). No: Guarding (Male) Exam: Deferred Rectal (Males) Exam: Deferred Back Exam: Normal Inspection, Full Range of Motion. No: CVA Tenderness (L), CVA Tenderness (R), Muscle Spasm Extremities: Normal Inspection, Normal Range of Motion, Non-Tender, No Pedal Edema, Normal Capillary Refill. No: Jose Ramon's Sign Neurological: Alert, Oriented, CN II-XII Intact, Normal Cognition, Normal Gait, Normal Reflexes (Negative Babinski's), No Motor/Sensory Deficits Psychiatric: Normal Affect, Normal Mood Skin Exam: Warm, Dry, Intact, Normal Color, No Rash. No: Diaphoretic, Wound/ Incision Lymphatic: No Adenopathy EKG INTERPRETATION EKG Date: 09/17/18 Time: 10:32 Rhythm: NSR Rate (Beats/Min): 66 [place]: Normal (Left cardiac axis) P-Wave: Present (Diffuse biphasic P waves with extreme poor R-wave progression in the anterior leads) QRS: Normal (QRS interval of 0.09 seconds representing repolarization changes with T-wave inversion in leads 3 and V1) ST-T: Normal QT: Normal IL/PQ Interval: 0.20 seconds representing a borderline first-degree AV block Comparison: NA - No Prior EKG (No recent EKG) EKG Interpretation Comments: 1. No acute ischemic changes 2. Borderline First-degree AV block Course - Vital Signs Last Recorded V/S: Last Vital Signs Temp 36.8 C 09/17/18 10:31 Pulse 57 L 09/17/18 13:45 Resp 16 09/17/18 13:45 BP 141/72 H 09/17/18 13:45 Pulse Ox 99 09/17/18 13:45 Vital Signs - 24 hr 09/17/18 09/17/18 09/17/18 10:31 10:45 10:46 Temperature [ 36.8 C Temporal] Pulse, 76 Peripheral Pulse, 71 64 Peripheral [ Pulse Oximetry] Respiratory 16 17 Rate Blood Pressure 177/77 H Blood Pressure 192/84 H 177/77 H [Right Upper Arm] O2 Sat by Pulse 93 L 93 L Oximetry O2 Sat by Pulse 93 L Oximetry [ Nasal Cannula] 09/17/18 09/17/18 09/17/18 11:00 11:15 11:30 Temperature [ Temporal] Pulse, Peripheral Pulse, 60 57 L 58 L Peripheral [ Pulse Oximetry] Respiratory 19 16 19 Rate Blood Pressure Blood Pressure 175/76 H 159/74 H 166/73 H [Right Upper Arm] O2 Sat by Pulse 97 97 97 Oximetry O2 Sat by Pulse Oximetry [ Nasal Cannula] 09/17/18 09/17/18 09/17/18 11:45 12:15 12:30 Temperature [ Temporal] Pulse, Peripheral Pulse, 63 58 L 58 L Peripheral [ Pulse Oximetry] Respiratory 19 19 20 Rate Blood Pressure Blood Pressure 189/87 H 173/81 H 178/97 H [Right Upper Arm] O2 Sat by Pulse 98 98 99 Oximetry O2 Sat by Pulse Oximetry [ Nasal Cannula] 09/17/18 09/17/18 09/17/18 12:42 12:45 13:00 Temperature [ Temporal] Pulse, Peripheral Pulse, 56 L 54 L Peripheral [ Pulse Oximetry] Respiratory 20 16 Rate Blood Pressure 178/97 H Blood Pressure 154/70 H 169/64 H [Right Upper Arm] O2 Sat by Pulse 98 98 Oximetry O2 Sat by Pulse Oximetry [ Nasal Cannula] 09/17/18 13:15 Temperature [ Temporal] Pulse, Peripheral Pulse, 56 L Peripheral [ Pulse Oximetry] Respiratory 20 Rate Blood Pressure Blood Pressure 150/72 H [Right Upper Arm] O2 Sat by Pulse 98 Oximetry O2 Sat by Pulse Oximetry [ Nasal Cannula] - Orders/Labs/Meds Orders: Active Orders 24 hr Category Date Time Status Cardiac Monitoring [RC] . DIRECTED Care 09/17/18 10:31 Active EKG Documentation Completion [RC] ASDIRECTED Care 09/17/18 10:31 Active Oxygen Therapy, ED [RC] CONTINUOUS Care 09/17/18 10:31 Active Peripheral IV Care [RC] . DIRECTED Care 09/17/18 10:31 Active Pulse Oximetry [RC] CONTINUOUS Care 09/17/18 10:31 Active Up With Assistance [RC] PFP Care 09/17/18 10:31 Active Vital Signs [RC] PFP Care 09/17/18 10:31 Active Nothing per Oral Now Diet [DIET] Diet 09/17/18 Breakfast Active Chest 1V Frontal [CR] Stat Exams 09/17/18 10:31 Taken Chest PE [Ang Chest] [CT] Stat Exams 09/17/18 11:29 Taken Sodium Chloride 0.9% [Saline Flush] Med 09/17/18 10:31 Active 10 ml FLUSH ASDIRECTED PRN Obtain Past Medical Record [OM.PC] Urgent Oth 09/17/18 10:31 Active Peripheral IV Insertion Adult [OM.PC] Stat Oth 09/17/18 10:31 Ordered Resuscitation Status Stat Resus Stat 09/17/18 10:31 Ordered Medication Orders Sodium Chloride (Saline Flush) 10 ml FLUSH ASDIRECTED PRN PRN Reason: Keep Vein Open Last Admin: 09/17/18 11:48 Dose: 10 ml Labs: Laboratory Tests 09/17/18 09/17/18 09/17/18 Range/Units 10:40 10:40 10:40 WBC 6.5 (4.0-10.2) K/uL RBC 5.48 H (4.33-5.41) M/uL Hgb 16.8 (13.1-16.8) g/dL Hct 49.8 H (39.0-49.0) % MCV 90.9 (84.0-98.0) fL MCH 30.7 (28.2-33.3) pg MCHC 33.7 (31.7-36.0) g/dL RDW 13.4 (11.2-14.1) % Plt Count 122 L (150-350) K/uL Neut % (Auto) 54.8 (45.0-80.0) % Lymph % (Auto) 37.2 (10.0-50.0) % [place] % (Auto) 6.0 (2.0-14.0) % Eos % (Auto) 1.5 (0.0-5.0) % Baso % (Auto) 0.5 (0.0-2.0) % Neut # (Auto) 3.54 (1.40-7.00) K/uL Lymph # (Auto) 2.41 (0.50-3.50) K/uL [place] # (Auto) 0.39 (0.00-1.00) K/uL Eos # (Auto) 0.10 (0.00-0.50) K/uL Baso # (Auto) 0.03 (0.00-0.20) K/uL PT 10.7 (9.5-12.0) SEC INR 1.0 APTT 25.2 (21.0-31.3) SEC D-Dimer, Quantitative 834 H (0-400) ng/mL Sodium (136-145) mmol/L Potassium (3.5-5.1) mmol/L Chloride (98-107) mmol/L Carbon Dioxide (21.0-32.0) mmol/L BUN (7-18) mg/dL Creatinine (0.51-1.17) mg/dL Est Cr Clr Drug Dosing Estimated GFR (MDRD) mL/min Glucose (74-106) mg/dL Lactic Acid (0.4-2.0) mmol/L Uric Acid (2.6-7.2) mg/dL Calcium (8.5-10.1) mg/dL Magnesium (1.8-2.4) mg/dL Total Bilirubin (0.2-1.0) mg/dL AST (15-37) U/L ALT (12-78) U/L Alkaline Phosphatase (46-116) IU/L Creatine Kinase (26-308) U/L Creatine Kinase Index (0.0-2.5) % CK-MB (CK-2) (0.00-3.60) ng/mL Troponin I (0.000-0.056) ng/mL NT-Pro-B Natriuret Pep (0-125) pg/mL Total Protein (6.4-8.2) g/dL Albumin (3.4-5.0) g/dL TSH, Ultra Sensitive (0.358-3.740) mIU/mL 09/17/18 09/17/18 Range/Units 10:40 10:40 WBC (4.0-10.2) K/uL RBC (4.33-5.41) M/uL Hgb (13.1-16.8) g/dL Hct (39.0-49.0) % MCV (84.0-98.0) fL MCH (28.2-33.3) pg MCHC (31.7-36.0) g/dL RDW (11.2-14.1) % Plt Count (150-350) K/uL Neut % (Auto) (45.0-80.0) % Lymph % (Auto) (10.0-50.0) % [place] % (Auto) (2.0-14.0) % Eos % (Auto) (0.0-5.0) % Baso % (Auto) (0.0-2.0) % Neut # (Auto) (1.40-7.00) K/uL Lymph # (Auto) (0.50-3.50) K/uL [place] # (Auto) (0.00-1.00) K/uL Eos # (Auto) (0.00-0.50) K/uL Baso # (Auto) (0.00-0.20) K/uL PT (9.5-12.0) SEC INR APTT (21.0-31.3) SEC D-Dimer, Quantitative (0-400) ng/mL Sodium 143 (136-145) mmol/L Potassium 4.1 (3.5-5.1) mmol/L Chloride 105 (98-107) mmol/L Carbon Dioxide 31.8 (21.0-32.0) mmol/L BUN 18 (7-18) mg/dL Creatinine 1.14 (0.51-1.17) mg/dL Est Cr Clr Drug Dosing TNP Estimated GFR (MDRD) > 60 mL/min Glucose 139 H (74-106) mg/dL Lactic Acid 1.5 (0.4-2.0) mmol/L Uric Acid 4.9 (2.6-7.2) mg/dL Calcium 9.2 (8.5-10.1) mg/dL Magnesium 1.6 L (1.8-2.4) mg/dL Total Bilirubin 0.6 (0.2-1.0) mg/dL AST 28 (15-37) U/L ALT 33 (12-78) U/L Alkaline Phosphatase 37 L (46-116) IU/L Creatine Kinase 113 (26-308) U/L Creatine Kinase Index 1.8 (0.0-2.5) % CK-MB (CK-2) 2.00 (0.00-3.60) ng/mL Troponin I 0.037 (0.000-0.056) ng/mL NT-Pro-B Natriuret Pep 822 H (0-125) pg/mL Total Protein 7.0 (6.4-8.2) g/dL Albumin 3.9 (3.4-5.0) g/dL TSH, Ultra Sensitive 1.389 (0.358-3.740) mIU/mL Meds: Medications Generic Name Dose Route Start Last Admin Trade Name Freq PRN Reason Stop Dose Admin Sodium Chloride 10 ml 09/17/18 10:31 09/17/18 11:48 Saline Flush FLUSH 10 ml ASDIRECTED PRN Administration Keep Vein Open Discontinued Medications Generic Name Dose Route Start Last Admin Trade Name Freq PRN Reason Stop Dose Admin Aspirin 324 mg 09/17/18 10:31 09/17/18 10:43 Aspirin CHEW 09/17/18 10:32 324 mg ONETIME ONE Administration Famotidine 40 mg 09/17/18 10:31 09/17/18 10:46 Pepcid IVPUSH 09/17/18 10:32 40 mg ONETIME ONE Administration Furosemide 60 mg 09/17/18 11:28 09/17/18 11:40 Lasix IVPUSH 09/17/18 11:29 60 mg NOW ONE Administration Iopamidol 100 ml 09/17/18 12:00 09/17/18 13:05 [id number] (76%) IVPUSH 09/17/18 12:01 100 ml ONETIME ONE Administration Metoprolol Tartrate 2.5 mg 09/17/18 10:31 09/17/18 10:46 Lopressor IVPUSH 09/17/18 10:32 2.5 mg ONETIME ONE Administration Nitroglycerin 0.4 mg 09/17/18 12:31 09/17/18 12:42 Nitrostat SL 09/17/18 12:32 0.4 mg ONETIME ONE Administration Ticagrelor 180 mg 09/17/18 10:31 09/17/18 10:44 Brilinta PO 09/17/18 10:32 180 mg ONETIME ONE Administration - Radiology Interpretation Free Text/Narrative:: patient monitor initially showed a normal sinus rhythm with heart rate in the 60s to 70s with mild sinus bradycardia in the mid to high 50s after treatment with no ectopy, arrhythmia, etc. Chest x-ray, portable, shows moderate to severe cardiomegaly with mild the prominent proximal aortic arch with no evidence of aneurysm. Mild CHF also present with moderate COPD changes but no evidence of pulmonary infiltrates, pneumothorax, etc. Telephone report not received from the radiologist despite our previous request. Note holiday season. Written report of CTA of the chest with contrast using PE protocol shows no evidence of PE with small pericardial effusion noted likely stable from previous evaluations. Departure - Departure Time of Disposition: 14:15 Disposition: Admitted As Inpatient 67 Condition: Good Clinical Impression: CHF, Congestive heart failure, Peptic reflux disease, D-dimer, elevated, Hypomagnesemia Diabetes mellitus Qualifiers: Diabetes mellitus type: type 2 Diabetes mellitus truer pinion and wheel insulin use: without nursing home use Diabetes mellitus complication status: with kidney complications Diabetes mellitus complication detail: with chronic kidney disease Chronic kidney disease stage: stage 2 (mild) Qualified Code(s): E11.22 - Type 2 diabetes mellitus with diabetic chronic kidney disease Hypertension Qualifiers: Hypertension type: essential hypertension Qualified Code(s): I10 - Essential ( primary) hypertension COPD (chronic obstructive pulmonary disease) Qualifiers: COPD type: emphysema Emphysema type: panlobular Qualified Code(s): J43.1 - Panlobular emphysema Osteoarthritis Qualifiers: Osteoarthritis location: multiple joints Osteoarthritis type: primary Qualified Code(s): M15.0 - Primary generalized (osteo)arthritis Hyperlipidemia Qualifiers: Hyperlipidemia type: unspecified Qualified Code(s): E78.5 - Hyperlipidemia, unspecified - Discharge Information *PRESCRIPTION DRUG MONITORING PROGRAM REVIEWED*: Not Applicable *COPY OF PRESCRIPTION DRUG MONITORING REPORT IN PATIENT SHAYNA: Not Applicable - Problem List & Annotations (1) CHF, Congestive heart failure SNOMED Code(s): 76827955 Code(s): I50.9 - HEART FAILURE, UNSPECIFIED Status: Acute Priority: High Current Visit: Yes Onset Date: 09/17/18 Annotation/Comment:: Note mild centralized CHF by chest x-ray with no history of recurrent CHF and diastolic dysfunction. Note recent stress echocardiogram on 11/23/17 and subsequent echocardiogram on 01/15/18 showing excellent ejection fraction of 65% with otherwise results as above. Chest pain protocol was initiated in the emergency room. Sublingual nitroglycerin was given in the emergency room for blood pressure control. Only some improvement of his blood pressure with IV Lopressor. Initiate standard rule out ID orders cardiology consultation depending on his clinical course. High-dose IV Lasix therapy initiated in the emergency room. Note previously known mild pericardial effusion. (2) COPD (chronic obstructive pulmonary disease) SNOMED Code(s): 85940926 Code(s): J44.9 - CHRONIC OBSTRUCTIVE PULMONARY DISEASE, UNSPECIFIED Status : Acute Priority: Medium Current Visit: Yes Onset Date: 09/17/18 Annotation/Comment:: COPD by chest x-ray. Note history of dyspnea. Possible pulmonary component of his symptoms. Consider PFTs on an outpatient basis. Fever or bronchitic type symptoms. 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 Qualifiers: Diabetes mellitus type: type 2 Diabetes mellitus truer pinion and wheel insulin use: without nursing home use Diabetes mellitus complication status: with kidney complications Diabetes mellitus complication detail: with chronic kidney disease Chronic kidney disease stage: stage 2 (mild) Qualified Code(s): E11.22 - Type 2 diabetes mellitus with diabetic chronic kidney disease; N18.2 - Chronic kidney disease, stage 2 (mild) (4) Hyperlipidemia SNOMED Code(s): 76377977 Code(s): E78.5 - HYPERLIPIDEMIA, UNSPECIFIED Status: Chronic Priority: Medium Current Visit: Yes Annotation/Comment:: Lipid Panel in the a.m. Qualifiers: Hyperlipidemia type: unspecified Qualified Code(s): E78.5 - Hyperlipidemia , unspecified (5) Hypertension SNOMED Code(s): 58232407 Code(s): I10 - ESSENTIAL (PRIMARY) HYPERTENSION Status: Chronic Priority : Medium Current Visit: Yes Annotation/Comment:: As above. Continue to observe closely medication adjustments depending on his clinical course. Qualifiers: Hypertension type: essential hypertension Qualified Code(s): I10 - Essential (primary) hypertension (6) Hypomagnesemia SNOMED Code(s): 903991973 Code(s): E83.42 - HYPOMAGNESEMIA Status: Acute Priority: Medium Current Visit: Yes Onset Date: 09/17/18 Annotation/Comment:: Initiate magnesium oxide therapy especially in light of IV Lasix therapy. (7) Osteoarthritis SNOMED Code(s): 511779861 Code(s): M19.90 - UNSPECIFIED OSTEOARTHRITIS, UNSPECIFIED SITE Status: Chronic Priority: Medium Current Visit: Yes Annotation/Comment:: Stable by history with history of hyperuricemia with no recent gout attacks, etc. Qualifiers: Osteoarthritis location: multiple joints Osteoarthritis type: primary Qualified Code(s): M15.0 - Primary generalized (osteo)arthritis (8) Peptic reflux disease SNOMED Code(s): 891065710 Code(s): K21.9 - GASTRO-ESOPHAGEAL REFLUX DISEASE WITHOUT ESOPHAGITIS Status: Chronic Priority: Medium Current Visit: Yes Annotation/Comment:: High-dose IV Pepcid given in the emergency room. No abdominal complaints. - Problem List Review Problem List Initiated/Reviewed/Updated: Yes - My Orders Last 24 Hours: My Active Orders 09/17/18 10:31 Cardiac Monitoring [RC] . DIRECTED EKG Documentation Completion [RC] ASDIRECTED Oxygen Therapy, ED [RC] CONTINUOUS Peripheral IV Care [RC] . DIRECTED Pulse Oximetry [RC] CONTINUOUS Up With Assistance [RC] PFP Vital Signs [RC] PFP Chest 1V Frontal [CR] Stat Sodium Chloride 0.9% [Saline Flush] 10 ml FLUSH ASDIRECTED PRN Obtain Past Medical Record [OM.PC] Urgent Peripheral IV Insertion Adult [OM.PC] Stat Resuscitation Status Stat 09/17/18 11:29 Chest PE [Ang Chest] [CT] Stat 09/17/18 Breakfast Nothing per Oral Now Diet [DIET] - Assessment/Plan Admission H&P: Please use this note as an admission H&P Last 24 Hours: My Active Orders 09/17/18 10:31 Cardiac Monitoring [RC] . DIRECTED EKG Documentation Completion [RC] ASDIRECTED Oxygen Therapy, ED [RC] CONTINUOUS Peripheral IV Care [RC] . DIRECTED Pulse Oximetry [RC] CONTINUOUS Up With Assistance [RC] PFP Vital Signs [RC] PFP Chest 1V Frontal [CR] Stat Sodium Chloride 0.9% [Saline Flush] 10 ml FLUSH ASDIRECTED PRN Obtain Past Medical Record [OM.PC] Urgent Peripheral IV Insertion Adult [OM.PC] Stat Resuscitation Status Stat 09/17/18 11:29 Chest PE [Ang Chest] [CT] Stat 09/17/18 Breakfast Nothing per Oral Now Diet [DIET] Assessment:: As above Plan: As above. Extensive precautions were given to the patient, who is in agreement with the treatment plan. The patient will require about 3-4 days of inpatient/ acute care secondary to multiple health problems as above.
[2018-09-17 11:08] LABS: CHLORIDE,CL 105 mmol/L (98-107); SODIUM,NA 143 mmol/L (136-145)
[2018-09-17] MEDS ORDERED: Furosemide 40 MG/4 ML VIAL IVPUSH ONE (11:28)
[2018-09-17] MEDS: Sodium Chloride 0.9% 10 ML Syringe FLUSH PRN ×2 (11:48→20:24)
[2018-09-17] MEDS ORDERED: Iopamidol 755 Mg/ML 100 ML Bottle IVPUSH ONE (12:00)
[2018-09-17] MEDS ORDERED: Nitroglycerin 0.4 MG Tab.SL SL ONE (12:31)
[2018-09-17] MEDS ORDERED: Sodium Chloride 0.9% 10 ML Syringe FLUSH PRN (14:43)
[2018-09-17] MEDS ORDERED: Temazepam 15 MG Cap PO PRN (14:43)
[2018-09-17] MEDS ORDERED: Enoxaparin 60 MG/0.6 ML Syringe SUBCUT SCH (14:45)
[2018-09-17] MEDS: Magnesium Oxide 400 MG Tab PO SCH (15:36)
[2018-09-17] MEDS ORDERED: Enoxaparin 100 MG/1 ML Syringe SUBCUT SCH (16:00)
[2018-09-17] MEDS: Potassium Chloride 20 MEQ Tab.ER PO SCH (18:01)
[2018-09-17] MEDS: Simvastatin 20 MG Tab PO SCH (19:38)
[2018-09-17] MEDS: Fenofibrate,Micronized 134 MG Cap PO SCH (19:38)
[2018-09-17] MEDS: Lisinopril 10 MG Tab PO SCH (19:39)
[2018-09-17] MEDS: Furosemide 40 MG/4 ML VIAL IVPUSH SCH (20:23)
[2018-09-18] MEDS: Furosemide 40 MG/4 ML VIAL IVPUSH SCH ×3 (05:29→20:27)
[2018-09-18] MEDS: Sodium Chloride 0.9% 10 ML Syringe FLUSH PRN ×4 (05:29→20:33)
[2018-09-18] MEDS: Enoxaparin 100 MG/1 ML Syringe SUBCUT SCH ×2 (05:30→18:21)
[2018-09-18] MEDS: Aspirin 325 MG Tab PO SCH (07:29)
[2018-09-18] MEDS: Magnesium Oxide 400 MG Tab PO SCH ×2 (07:30→20:32)
[2018-09-18] MEDS: Atenolol 50 MG Tab PO SCH (07:30)
[2018-09-18] MEDS: Potassium Chloride 20 MEQ Tab.ER PO SCH ×3 (07:30→18:12)
[2018-09-18 08:16] LABS: HEMOGLOBIN A1C 6.4 % (4.3-5.7)
--- NOTE | 2018-09-18 14:45 | PCM.PN ---
- General Info Date of Service: 09/18/18 Admission Dx/Problem (Free Text): CHF Functional Status: Reports: Pain Controlled, Tolerating Diet, Ambulating, Urinating, New Symptoms, Incentive Spirometry Pain Score: 2 - Review of Systems General: Reports: No Symptoms. Denies: Fever, Weakness, Fatigue, Malaise, Chills, Night Sweats, Appetite HEENT: Denies: Eye Pain, Headaches, Sinus Congestion Pulmonary: Reports: Shortness of Breath (Much improved), Cough, Sputum (Mild clear). Denies: Hemoptysis, Wheezing Cardiovascular: Reports: Chest Pain (Occasional nonspecific mid retrosternal yesterday evening with only a couple of episodes lasting for less than 1 minute each with no other anginal complaints), Dyspnea on Exertion (Improved). Denies : Palpitations, Orthopnea, PND, Edema, Lightheadedness Gastrointestinal: Reports: No Symptoms, Other (Normal bowel movement this morning). Denies: Abdominal Pain, Constipation, Decreased Appetite, Diarrhea, Difficulty Swallowing, Flatus, Hematochezia, Melena, Nausea, Vomiting Genitourinary: Reports: No Symptoms. Denies: Dysuria, Frequency, Burning, Pain , Urgency, Incontinence, Hematuria, Retention, Flank Pain Musculoskeletal: Reports: Leg Pain (Mild bilateral leg cramps yesterday evening) . Denies: Neck Pain, Shoulder Pain, Arm Pain, Hand Pain, Back Pain, Joint Pain , Joint Swelling Skin: Reports[facility] Denies: Pallor, Diaphoresis, Pruritis, Rash Neurological: Reports: No Symptoms. Denies: Confusion, Dizziness, Numbness, Paresthesia, Tingling, Weakness Psychiatric: Reports: No Symptoms. Denies: Confusion, Agitation, Cravings, Hallucinations - Patient Data Vitals - Most Recent: Last Vital Signs Temp 36.3 C 09/18/18 11:31 Pulse 56 L 09/18/18 11:31 Resp 15 09/18/18 11:31 BP 126/59 L 09/18/18 11:31 Pulse Ox 91 L 09/18/18 11:31 Vital Signs - 24 hr 09/17/18 09/17/18 09/17/18 14:43 15:52 19:39 Temperature [ 36.2 C Temporal] Pulse, Peripheral Pulse, 53 L Peripheral [ Pulse Oximetry] Respiratory 15 Rate Blood Pressure 130/82 Blood Pressure [Left Upper Arm ] Blood Pressure 155/61 H [Right Upper Arm] O2 Sat by Pulse 97 97 Oximetry O2 Sat by Pulse 97 Oximetry [ Nasal Cannula] 09/17/18 09/17/18 09/18/18 19:46 23:55 04:00 Temperature [ 36.7 C 36.6 C 36.5 C Temporal] Pulse, Peripheral Pulse, 58 L 56 L 63 Peripheral [ Pulse Oximetry] Respiratory 18 18 18 Rate Blood Pressure Blood Pressure [Left Upper Arm ] Blood Pressure 130/82 149/75 H 137/62 [Right Upper Arm] O2 Sat by Pulse 97 96 93 L Oximetry O2 Sat by Pulse Oximetry [ Nasal Cannula] 09/18/18 09/18/18 09/18/18 07:24 07:30 11:31 Temperature [ 36.4 C 36.3 C Temporal] Pulse, 66 Peripheral Pulse, 66 56 L Peripheral [ Pulse Oximetry] Respiratory 15 15 Rate Blood Pressure 133/64 Blood Pressure 126/59 L [Left Upper Arm ] Blood Pressure 133/64 [Right Upper Arm] O2 Sat by Pulse 95 91 L Oximetry O2 Sat by Pulse Oximetry [ Nasal Cannula] Weight - Most Recent: 90.917 kg I&O - Last 24 Hours: Intake & Output 09/17/18 09/18/18 09/18/18 22:59 06:59 14:59 Intake Total 360 Output Total 550 Balance -550 360 Imaging Impressions - Last 24 Hours: front desk monitor shows normal sinus rhythm in the 60s with no ectopy or arrhythmia Lab Results Last 24 Hours: Laboratory Results - last 24 hr 09/17/18 09/17/18 09/18/18 Range/Units 15:10 21:10 07:20 WBC 9.0 (4.0-10.2) K/uL RBC 5.86 H (4.33-5.41) M/uL Hgb 18.0 H (13.1-16.8) g/dL Hct 52.9 H (39.0-49.0) % MCV 90.3 (84.0-98.0) fL MCH 30.7 (28.2-33.3) pg MCHC 34.0 (31.7-36.0) g/dL RDW 13.8 (11.2-14.1) % Plt Count 149 L (150-350) K/uL Neut % (Auto) 55.5 (45.0-80.0) % Lymph % (Auto) 35.1 (10.0-50.0) % [place] % (Auto) 8.0 (2.0-14.0) % Eos % (Auto) 1.2 (0.0-5.0) % Baso % (Auto) 0.2 (0.0-2.0) % Neut # (Auto) 4.99 (1.40-7.00) K/uL Lymph # (Auto) 3.16 (0.50-3.50) K/uL [place] # (Auto) 0.72 (0.00-1.00) K/uL Eos # (Auto) 0.11 (0.00-0.50) K/uL Baso # (Auto) 0.02 (0.00-0.20) K/uL D-Dimer, Quantitative (0-400) ng/mL Sodium (136-145) mmol/L Potassium (3.5-5.1) mmol/L Chloride (98-107) mmol/L Carbon Dioxide (21.0-32.0) mmol/L BUN (7-18) mg/dL Creatinine (0.51-1.17) mg/dL Est Cr Clr Drug Dosing mL/min Estimated GFR (MDRD) mL/min Glucose (74-106) mg/dL Hemoglobin A1c (4.3-5.7) % Calcium (8.5-10.1) mg/dL Total Bilirubin (0.2-1.0) mg/dL AST (15-37) U/L ALT (12-78) U/L Alkaline Phosphatase (46-116) IU/L Creatine Kinase 111 96 (26-308) U/L Creatine Kinase Index 1.8 1.9 (0.0-2.5) % CK-MB (CK-2) 2.00 1.80 (0.00-3.60) ng/mL Troponin I 0.042 0.050 (0.000-0.056) ng/mL NT-Pro-B Natriuret Pep (0-125) pg/mL Total Protein (6.4-8.2) g/dL Albumin (3.4-5.0) g/dL Triglycerides (30-150) mg/dL Cholesterol (100-200) mg/dL LDL Cholesterol, Calc (0-100) mg/dL HDL Cholesterol (40-60) mg/dL 09/18/18 09/18/18 09/18/18 Range/Units 07:20 07:20 07:20 WBC (4.0-10.2) K/uL RBC (4.33-5.41) M/uL Hgb (13.1-16.8) g/dL Hct (39.0-49.0) % MCV (84.0-98.0) fL MCH (28.2-33.3) pg MCHC (31.7-36.0) g/dL RDW (11.2-14.1) % Plt Count (150-350) K/uL Neut % (Auto) (45.0-80.0) % Lymph % (Auto) (10.0-50.0) % [place] % (Auto) (2.0-14.0) % Eos % (Auto) (0.0-5.0) % Baso % (Auto) (0.0-2.0) % Neut # (Auto) (1.40-7.00) K/uL Lymph # (Auto) (0.50-3.50) K/uL [place] # (Auto) (0.00-1.00) K/uL Eos # (Auto) (0.00-0.50) K/uL Baso # (Auto) (0.00-0.20) K/uL D-Dimer, Quantitative 503 H (0-400) ng/mL Sodium 142 (136-145) mmol/L Potassium 3.6 (3.5-5.1) mmol/L Chloride 100 (98-107) mmol/L Carbon Dioxide 31.2 (21.0-32.0) mmol/L BUN 21 H (7-18) mg/dL Creatinine 1.54 H (0.51-1.17) mg/dL Est Cr Clr Drug Dosing 38.06 mL/min Estimated GFR (MDRD) 44 mL/min Glucose 129 H (74-106) mg/dL Hemoglobin A1c 6.4 H (4.3-5.7) % Calcium 9.9 (8.5-10.1) mg/dL Total Bilirubin 1.0 (0.2-1.0) mg/dL AST 30 (15-37) U/L ALT 31 (12-78) U/L Alkaline Phosphatase 36 L (46-116) IU/L Creatine Kinase 279 (26-308) U/L Creatine Kinase Index 0.5 (0.0-2.5) % CK-MB (CK-2) 1.40 (0.00-3.60) ng/mL Troponin I 0.050 (0.000-0.056) ng/mL NT-Pro-B Natriuret Pep 1038 H (0-125) pg/mL Total Protein 7.2 (6.4-8.2) g/dL Albumin 4.1 (3.4-5.0) g/dL Triglycerides 234 H (30-150) mg/dL Cholesterol 147 (100-200) mg/dL LDL Cholesterol, Calc 74 (0-100) mg/dL HDL Cholesterol 26 L (40-60) mg/dL Laboratory Tests 09/17/18 09/17/18 09/17/18 Range/Units 10:40 10:40 10:40 WBC 6.5 (4.0-10.2) K/uL RBC 5.48 H (4.33-5.41) M/uL Hgb 16.8 (13.1-16.8) g/dL Hct 49.8 H (39.0-49.0) % MCV 90.9 (84.0-98.0) fL MCH 30.7 (28.2-33.3) pg MCHC 33.7 (31.7-36.0) g/dL RDW 13.4 (11.2-14.1) % Plt Count 122 L (150-350) K/uL Neut % (Auto) 54.8 (45.0-80.0) % Lymph % (Auto) 37.2 (10.0-50.0) % [place] % (Auto) 6.0 (2.0-14.0) % Eos % (Auto) 1.5 (0.0-5.0) % Baso % (Auto) 0.5 (0.0-2.0) % Neut # (Auto) 3.54 (1.40-7.00) K/uL Lymph # (Auto) 2.41 (0.50-3.50) K/uL [place] # (Auto) 0.39 (0.00-1.00) K/uL Eos # (Auto) 0.10 (0.00-0.50) K/uL Baso # (Auto) 0.03 (0.00-0.20) K/uL PT 10.7 (9.5-12.0) SEC INR 1.0 APTT 25.2 (21.0-31.3) SEC D-Dimer, Quantitative 834 H (0-400) ng/mL Sodium (136-145) mmol/L Potassium (3.5-5.1) mmol/L Chloride (98-107) mmol/L Carbon Dioxide (21.0-32.0) mmol/L BUN (7-18) mg/dL Creatinine (0.51-1.17) mg/dL Est Cr Clr Drug Dosing Estimated GFR (MDRD) mL/min Glucose (74-106) mg/dL Hemoglobin A1c (4.3-5.7) % Lactic Acid (0.4-2.0) mmol/L Uric Acid (2.6-7.2) mg/dL Calcium (8.5-10.1) mg/dL Magnesium (1.8-2.4) mg/dL Total Bilirubin (0.2-1.0) mg/dL AST (15-37) U/L ALT (12-78) U/L Alkaline Phosphatase (46-116) IU/L Creatine Kinase (26-308) U/L Creatine Kinase Index (0.0-2.5) % CK-MB (CK-2) (0.00-3.60) ng/mL Troponin I (0.000-0.056) ng/mL NT-Pro-B Natriuret Pep (0-125) pg/mL Total Protein (6.4-8.2) g/dL Albumin (3.4-5.0) g/dL Triglycerides (30-150) mg/dL Cholesterol (100-200) mg/dL LDL Cholesterol, Calc (0-100) mg/dL HDL Cholesterol (40-60) mg/dL TSH, Ultra Sensitive (0.358-3.740) mIU/mL 09/17/18 09/17/18 09/17/18 Range/Units 10:40 10:40 15:10 WBC (4.0-10.2) K/uL RBC (4.33-5.41) M/uL Hgb (13.1-16.8) g/dL Hct (39.0-49.0) % MCV (84.0-98.0) fL MCH (28.2-33.3) pg MCHC (31.7-36.0) g/dL RDW (11.2-14.1) % Plt Count (150-350) K/uL Neut % (Auto) (45.0-80.0) % Lymph % (Auto) (10.0-50.0) % [place] % (Auto) (2.0-14.0) % Eos % (Auto) (0.0-5.0) % Baso % (Auto) (0.0-2.0) % Neut # (Auto) (1.40-7.00) K/uL Lymph # (Auto) (0.50-3.50) K/uL [place] # (Auto) (0.00-1.00) K/uL Eos # (Auto) (0.00-0.50) K/uL Baso # (Auto) (0.00-0.20) K/uL PT (9.5-12.0) SEC INR APTT (21.0-31.3) SEC D-Dimer, Quantitative (0-400) ng/mL Sodium 143 (136-145) mmol/L Potassium 4.1 (3.5-5.1) mmol/L Chloride 105 (98-107) mmol/L Carbon Dioxide 31.8 (21.0-32.0) mmol/L BUN 18 (7-18) mg/dL Creatinine 1.14 (0.51-1.17) mg/dL Est Cr Clr Drug Dosing TNP Estimated GFR (MDRD) > 60 mL/min Glucose 139 H (74-106) mg/dL Hemoglobin A1c (4.3-5.7) % Lactic Acid 1.5 (0.4-2.0) mmol/L Uric Acid 4.9 (2.6-7.2) mg/dL Calcium 9.2 (8.5-10.1) mg/dL Magnesium 1.6 L (1.8-2.4) mg/dL Total Bilirubin 0.6 (0.2-1.0) mg/dL AST 28 (15-37) U/L ALT 33 (12-78) U/L Alkaline Phosphatase 37 L (46-116) IU/L Creatine Kinase 113 111 (26-308) U/L Creatine Kinase Index 1.8 1.8 (0.0-2.5) % CK-MB (CK-2) 2.00 2.00 (0.00-3.60) ng/mL Troponin I 0.037 0.042 (0.000-0.056) ng/mL NT-Pro-B Natriuret Pep 822 H (0-125) pg/mL Total Protein 7.0 (6.4-8.2) g/dL Albumin 3.9 (3.4-5.0) g/dL Triglycerides (30-150) mg/dL Cholesterol (100-200) mg/dL LDL Cholesterol, Calc (0-100) mg/dL HDL Cholesterol (40-60) mg/dL TSH, Ultra Sensitive 1.389 (0.358-3.740) mIU/mL 09/17/18 09/18/18 09/18/18 Range/Units 21:10 07:20 07:20 WBC 9.0 (4.0-10.2) K/uL RBC 5.86 H (4.33-5.41) M/uL Hgb 18.0 H (13.1-16.8) g/dL Hct 52.9 H (39.0-49.0) % MCV 90.3 (84.0-98.0) fL MCH 30.7 (28.2-33.3) pg MCHC 34.0 (31.7-36.0) g/dL RDW 13.8 (11.2-14.1) % Plt Count 149 L (150-350) K/uL Neut % (Auto) 55.5 (45.0-80.0) % Lymph % (Auto) 35.1 (10.0-50.0) % [place] % (Auto) 8.0 (2.0-14.0) % Eos % (Auto) 1.2 (0.0-5.0) % Baso % (Auto) 0.2 (0.0-2.0) % Neut # (Auto) 4.99 (1.40-7.00) K/uL Lymph # (Auto) 3.16 (0.50-3.50) K/uL [place] # (Auto) 0.72 (0.00-1.00) K/uL Eos # (Auto) 0.11 (0.00-0.50) K/uL Baso # (Auto) 0.02 (0.00-0.20) K/uL PT (9.5-12.0) SEC INR APTT (21.0-31.3) SEC D-Dimer, Quantitative 503 H (0-400) ng/mL Sodium (136-145) mmol/L Potassium (3.5-5.1) mmol/L Chloride (98-107) mmol/L Carbon Dioxide (21.0-32.0) mmol/L BUN (7-18) mg/dL Creatinine (0.51-1.17) mg/dL Est Cr Clr Drug Dosing Estimated GFR (MDRD) mL/min Glucose (74-106) mg/dL Hemoglobin A1c (4.3-5.7) % Lactic Acid (0.4-2.0) mmol/L Uric Acid (2.6-7.2) mg/dL Calcium (8.5-10.1) mg/dL Magnesium (1.8-2.4) mg/dL Total Bilirubin (0.2-1.0) mg/dL AST (15-37) U/L ALT (12-78) U/L Alkaline Phosphatase (46-116) IU/L Creatine Kinase 96 (26-308) U/L Creatine Kinase Index 1.9 (0.0-2.5) % CK-MB (CK-2) 1.80 (0.00-3.60) ng/mL Troponin I 0.050 (0.000-0.056) ng/mL NT-Pro-B Natriuret Pep (0-125) pg/mL Total Protein (6.4-8.2) g/dL Albumin (3.4-5.0) g/dL Triglycerides (30-150) mg/dL Cholesterol (100-200) mg/dL LDL Cholesterol, Calc (0-100) mg/dL HDL Cholesterol (40-60) mg/dL TSH, Ultra Sensitive (0.358-3.740) mIU/mL 09/18/18 09/18/18 Range/Units 07:20 07:20 WBC (4.0-10.2) K/uL RBC (4.33-5.41) M/uL Hgb (13.1-16.8) g/dL Hct (39.0-49.0) % MCV (84.0-98.0) fL MCH (28.2-33.3) pg MCHC (31.7-36.0) g/dL RDW (11.2-14.1) % Plt Count (150-350) K/uL Neut % (Auto) (45.0-80.0) % Lymph % (Auto) (10.0-50.0) % [place] % (Auto) (2.0-14.0) % Eos % (Auto) (0.0-5.0) % Baso % (Auto) (0.0-2.0) % Neut # (Auto) (1.40-7.00) K/uL Lymph # (Auto) (0.50-3.50) K/uL [place] # (Auto) (0.00-1.00) K/uL Eos # (Auto) (0.00-0.50) K/uL Baso # (Auto) (0.00-0.20) K/uL PT (9.5-12.0) SEC INR APTT (21.0-31.3) SEC D-Dimer, Quantitative (0-400) ng/mL Sodium 142 (136-145) mmol/L Potassium 3.6 (3.5-5.1) mmol/L Chloride 100 (98-107) mmol/L Carbon Dioxide 31.2 (21.0-32.0) mmol/L BUN 21 H (7-18) mg/dL Creatinine 1.54 H (0.51-1.17) mg/dL Est Cr Clr Drug Dosing 38.06 Estimated GFR (MDRD) 44 mL/min Glucose 129 H (74-106) mg/dL Hemoglobin A1c 6.4 H (4.3-5.7) % Lactic Acid (0.4-2.0) mmol/L Uric Acid (2.6-7.2) mg/dL Calcium 9.9 (8.5-10.1) mg/dL Magnesium (1.8-2.4) mg/dL Total Bilirubin 1.0 (0.2-1.0) mg/dL AST 30 (15-37) U/L ALT 31 (12-78) U/L Alkaline Phosphatase 36 L (46-116) IU/L Creatine Kinase 279 (26-308) U/L Creatine Kinase Index 0.5 (0.0-2.5) % CK-MB (CK-2) 1.40 (0.00-3.60) ng/mL Troponin I 0.050 (0.000-0.056) ng/mL NT-Pro-B Natriuret Pep 1038 H (0-125) pg/mL Total Protein 7.2 (6.4-8.2) g/dL Albumin 4.1 (3.4-5.0) g/dL Triglycerides 234 H (30-150) mg/dL Cholesterol 147 (100-200) mg/dL LDL Cholesterol, Calc 74 (0-100) mg/dL HDL Cholesterol 26 L (40-60) mg/dL TSH, Ultra Sensitive (0.358-3.740) mIU/mL Raul Results Last 24 Hours: Microbiology 09/18/18 11:20 Stool Occult Blood (RAUL) - Final Stool / Feces NEGATIVE OCCULT BLOOD Med Orders - Current: Current Medications Acetaminophen (Tylenol) 650 mg PO Q4H PRN PRN Reason: Pain Aspirin (Aspirin) 325 mg PO DAILY [facility] Last Admin: 09/18/18 07:29 Dose: 325 mg Atenolol (Tenormin) 50 mg PO DAILY [facility] Last Admin: 09/18/18 07:30 Dose: 50 mg Enoxaparin Sodium (Lovenox) 100 mg SUBCUT Q12H [facility] Last Admin: 09/18/18 05:30 Dose: 100 mg Fenofibrate (Fenofibrate) 134 mg PO BEDTIME [facility] Last Admin: 09/17/18 19:38 Dose: 134 mg Furosemide (Lasix) 40 mg IVPUSH Q8H [facility] Last Admin: 09/18/18 13:36 Dose: 40 mg Lisinopril (Prinivil) 10 mg PO BEDTIME [facility] Last Admin: 09/17/18 19:39 Dose: 10 mg Magnesium Oxide (Magnesium Oxide) 400 mg PO DAILY [facility] Last Admin: 09/18/18 07:30 Dose: 400 mg Potassium Chloride (Klor-Con M20) 20 meq PO TID [facility] Last Admin: 09/18/18 11:25 Dose: 20 meq Simvastatin (Zocor) 40 mg PO BEDTIME [facility] Last Admin: 09/17/18 19:38 Dose: 40 mg Sodium Chloride (Saline Flush) 10 ml FLUSH ASDIRECTED PRN PRN Reason: Keep Vein Open Last Admin: 09/18/18 13:46 Dose: 10 ml Sodium Chloride (Saline Flush) 10 ml FLUSH Q12HR PRN PRN Reason: Keep Vein Open Temazepam (Restoril) 15 mg PO BEDTIME PRN PRN Reason: Insomnia Discontinued Medications Aspirin (Aspirin) 324 mg CHEW ONETIME ONE Stop: 09/17/18 10:32 Last Admin: 09/17/18 10:43 Dose: 324 mg Enoxaparin Sodium (Lovenox) 60 mg SUBCUT Q24H [facility] Last Admin: 09/17/18 15:16 Dose: Not Given Enoxaparin Sodium (Lovenox) 100 mg SUBCUT Q24H [facility] Last Admin: 09/17/18 15:38 Dose: 100 mg Famotidine (Pepcid) 40 mg IVPUSH ONETIME ONE Stop: 09/17/18 10:32 Last Admin: 09/17/18 10:46 Dose: 40 mg Furosemide (Lasix) 60 mg IVPUSH NOW ONE Stop: 09/17/18 11:29 Last Admin: 09/17/18 11:40 Dose: 60 mg Iopamidol (Isovue-370 (76%)) 100 ml IVPUSH ONETIME ONE Stop: 09/17/18 12:01 Last Admin: 09/17/18 13:05 Dose: 100 ml Metoprolol Tartrate (Lopressor) 2.5 mg IVPUSH ONETIME ONE Stop: 09/17/18 10:32 Last Admin: 09/17/18 10:46 Dose: 2.5 mg Nitroglycerin (Nitrostat) 0.4 mg SL ONETIME ONE Stop: 09/17/18 12:32 Last Admin: 09/17/18 12:42 Dose: 0.4 mg Ticagrelor (Brilinta) 180 mg PO ONETIME ONE Stop: 09/17/18 10:32 Last Admin: 09/17/18 10:44 Dose: 180 mg - Exam Quality Assessment: Supplemental Oxygen, DVT Prophylaxis (Lovenox). No: Central Line/PICC, Urine Catheter, Skin Breakdown, Restraints General: Alert, Oriented, Cooperative, No Acute Distress HEENT: Pupils Equal, Pupils Reactive, EOMI, Mucous Membr. Moist/[place] Neck: Supple, Trachea Midline, No JVD, No Thyromegaly, Carotid Bruit (Mild bilateral carotid bruits). No: Lymphadenopathy Lungs: Rales (Mild Bilateral basilar rales significantly improved) Cardiovascular: Regular Rate, Regular Rhythm, No Murmurs. No: Gallops, Rubs GI/Abdominal Exam: Normal Bowel Sounds, Soft, Non-Tender, No Organomegaly, No Distention, No Abnormal Bruit, No Mass, Pelvis Stable. No: Guarding (Male) Exam: Deferred Back Exam: Normal Inspection, Full Range of Motion. No: CVA Tenderness (L), CVA Tenderness (R), Muscle Spasm Extremities: Normal Inspection, Normal Range of Motion, Non-Tender, No Pedal Edema, Normal Capillary Refill. No: Jose Ramon's Sign Peripheral Pulses: 2+: Radial (L), Radial (R), Dorsalis Pedis (L), Dorsalis Pedis (R) Skin: Warm, Dry, Intact, Ecchymosis (Mild at Lovenox site) Neurological: No New Focal Deficit, Other (No clinical orthostasis, negative Babinski's) Psy/Mental Status: Alert, Normal Affect, Normal Mood. No: Agitated, Hallucinations, Withdrawal Symptoms EKG INTERPRETATION EKG Date: 09/18/18 Time: 09:17 Rhythm: Other (Sinus bradycardia) Rate (Beats/Min): 53 [place]: Normal (Neutral cardiac axis) P-Wave: Enlarged (Mild diffuse biphasic P waves with extreme poor R-wave progression in the anterior leads) QRS: RBBB (QRS interval of 0.10 seconds representing repolarization changes versus beginning incomplete right bundle branch block) ST-T: Normal (T-wave inversion in lead V1) QT: Prolonged (Mild 496/465 ms) NM/PQ Interval: 0.21 seconds representing mild progression of previous first degree AV block since 09/17/18 Comparison: Change From Previous EKG (As above) EKG Interpretation Comments: 1. No acute ischemic changes 2. Left atrial enlargement 3. First Degree AV block 4. Repolarization changes versus incomplete right bundle branch block - Problem List & Annotations (1) CHF, Congestive heart failure SNOMED Code(s): 50123158 Code(s): I50.9 - HEART FAILURE, UNSPECIFIED Status: Acute Priority: High Current Visit: Yes Onset Date: 09/17/18 Annotation/Comment:: Urine output s Excellent with Current IV Lasix Therapy. Note Some Mild Developing Renal Insufficiency with Additional Leg Cramps despite Low Normal Potassium Level. Note mild centralized CHF by chest x-ray on admission with known history of recurrent CHF and diastolic dysfunction. Note recent stress echocardiogram on 11/23/17 and subsequent echocardiogram on 01/15/18 showing excellent ejection fraction of 65% with otherwise results as above. Negative workup for acute DE at this time, although borderline high normal troponin I and mildly progressive BNP elevation. Developing Renal insufficiency may be a contributing factor to these findings. Chest pain protocol was initiated in the emergency room. Sublingual nitroglycerin was given in the emergency room for blood pressure control. Only some improvement of his blood pressure with IV Lopressor. Cardiology consultation advisable at discharge with consideration of possible future heart catheterization. Note multiple previous negative stress tests as per emergency room note. High-dose IV Lasix therapy was initiated in the emergency room. Note previously known mild pericardial effusion which was stable by CT of the chest on admission. [facility] [place] will assume the patient's care in the a.m. Chest x-ray and blood work to be repeated in the a.m. (2) D-dimer, elevated SNOMED Code(s): 203852521 Code(s): R79.89 - OTHER SPECIFIED ABNORMAL FINDINGS OF BLOOD CHEMISTRY Status: Acute Priority: High Current Visit: Yes Onset Date: 09/18/18 Annotation/Comment:: Improved d-dimer with aggressive Lovenox therapy at VTE treatment dose. Continue this therapy for now. Note negative CTA of the chest on admission. Venous Doppler studies to be conducted in the a.m. (3) COPD (chronic obstructive pulmonary disease) SNOMED Code(s): 50668701 Code(s): J44.9 - CHRONIC OBSTRUCTIVE PULMONARY DISEASE, UNSPECIFIED Status : Acute Priority: Medium Current Visit: Yes Onset Date: 09/17/18 Qualifiers: COPD type: emphysema Emphysema type: panlobular Qualified Code(s): J43.1 - Panlobular emphysema Annotation/Comment:: COPD by chest x-ray. Note history of dyspnea. Possible pulmonary component of his symptoms. Consider PFTs on an outpatient basis. No recent fever or bronchitic type symptoms. 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 (5) Hyperlipidemia SNOMED Code(s): 78463695 Code(s): E78.5 - HYPERLIPIDEMIA, UNSPECIFIED Status: Chronic Priority: Medium Current Visit: Yes Qualifiers: Hyperlipidemia type: unspecified Qualified Code(s): E78.5 - Hyperlipidemia , unspecified Annotation/Comment:: Lipid Panel on 09/18 shows significant persistent dyslipidemia and hypertriglyceridemia. Further medication adjustment by [facility] [place] in the a.m. per their discretion. Weight loss in moderation advisable. (6) Hypertension SNOMED Code(s): 63316410 Code(s): I10 - ESSENTIAL (PRIMARY) HYPERTENSION Status: Chronic Priority : Medium Current Visit: Yes Qualifiers: Hypertension type: essential hypertension Qualified Code(s): I10 - Essential (primary) hypertension Annotation/Comment:: As above. Blood Pressures under relatively good control for now. Continue to observe closely with medication adjustments depending on his clinical course. (7) Hypomagnesemia SNOMED Code(s): 617885542 Code(s): E83.42 - HYPOMAGNESEMIA Status: Acute Priority: Medium Current Visit: Yes Onset Date: 09/17/18 Annotation/Comment:: Increased magnesium oxide therapy especially in light of IV Lasix therapy on admission with close observation of patient's leg cramps. (8) Osteoarthritis SNOMED Code(s): 140532976 Code(s): M19.90 - UNSPECIFIED OSTEOARTHRITIS, UNSPECIFIED SITE Status: Chronic Priority: Medium Current Visit: Yes Qualifiers: Osteoarthritis location: multiple joints Osteoarthritis type: primary Qualified Code(s): M15.0 - Primary generalized (osteo)arthritis Annotation/Comment:: Stable by history with history of hyperuricemia with no recent gout attacks, etc. (9) Peptic reflux disease SNOMED Code(s): 570781640 Code(s): K21.9 - GASTRO-ESOPHAGEAL REFLUX DISEASE WITHOUT ESOPHAGITIS Status: Chronic Priority: Medium Current Visit: Yes Annotation/Comment:: High-dose IV Pepcid given in the emergency room. No abdominal complaints. (10) Renal insufficiency SNOMED Code(s): 010045891, 643015330 Code(s): N28.9 - DISORDER OF KIDNEY AND URETER, UNSPECIFIED Status: Acute Priority: Medium Current Visit: Yes Onset Date: 09/18/18 Annotation/ Comment:: Mild Progressive creatinine level with this of IV Lasix therapy, which will be continued for now. Continue to observe his renal function closely. Increase potassium supplementation for now secondary to his leg cramps. Blood Work to be repeated in the a.m. - Problem List Review Problem List Initiated/Reviewed/Updated: Yes - My Orders Last 24 Hours: My Active Orders 09/18/18 05:11 EKG Documentation Completion [RC] ASDIRECTED 09/18/18 06:00 Enoxaparin [Lovenox] 100 mg SUBCUT Q12H 09/18/18 08:00 Aspirin 325 mg PO DAILY Atenolol [Tenormin] 50 mg PO DAILY 09/18/18 11:20 H PYLORI STOOL ANTIGEN [MREF] ONETIME 09/18/18 Breakfast Fluid Restriction [DIET] 09/17/18 14:43 Communication Order [RC] ROUTINE Height and Weight [RC] DAILY Intake and Output Strict [RC] ASDIRECTED Oxygen Therapy [RC] CONTINUOUS Pulse Oximetry [RC] ASDIRECTED Up With Assistance [RC] ASDIRECTED VTE Risk Score [RC] UPON Acetaminophen [Tylenol] 650 mg PO Q4H PRN Sodium Chloride 0.9% [Saline Flush] 10 ml FLUSH Q12HR PRN Temazepam [Restoril] 15 mg PO BEDTIME PRN Antiembolic Hose [OM.PC] Routine CHF Questionnaire [COMM] Routine DVT/VTE Prophylaxis Reflex [OM.PC] Routine GM Immunization Reflex [OM.PC] Click To Edit 09/17/18 14:44 Antiembolic Devices [RC] .Routine Communication, Vaccine [RC] PER UNIT ROUTINE VTE/DVT Education [RC] PER UNIT ROUTINE Vaccines to be Administered [RC] PER UNIT ROUTINE 09/17/18 15:00 Magnesium Oxide 400 mg PO DAILY 09/17/18 16:17 Vital Signs [RC] Q4HR 09/17/18 18:00 Potassium Chloride [Klor-Con M20] 20 meq PO TID 09/17/18 20:00 Fenofibrate,Micronized [Fenofibrate] 134 mg PO BEDTIME Lisinopril [Prinivil] 10 mg PO BEDTIME Simvastatin [Zocor] 40 mg PO BEDTIME 09/17/18 21:00 Furosemide [Lasix] 40 mg IVPUSH Q8H - Assessment Assessment:: As above - Plan Plan:: As above. Extensive precautions were given to the patient, who is in agreement with the treatment plan. [facility] [place] care in the a.m. Anticipate an additional 1 -2 days of inpatient/acute care secondary to multiple health issues as above.
[2018-09-18] MEDS ORDERED: Potassium Chloride 20 MEQ Tab.ER PO ONE (19:57)
[2018-09-18] MEDS: Simvastatin 20 MG Tab PO SCH (20:24)
[2018-09-18] MEDS: Fenofibrate,Micronized 134 MG Cap PO SCH (20:25)
[2018-09-18] MEDS: Lisinopril 10 MG Tab PO SCH (20:31)
[2018-09-19] MEDS: Acetaminophen 325 MG Tab PO PRN ×2 (05:23→23:39)
[2018-09-19] MEDS: Furosemide 40 MG/4 ML VIAL IVPUSH SCH (05:23)
[2018-09-19] MEDS: Enoxaparin 100 MG/1 ML Syringe SUBCUT SCH (05:24)
[2018-09-19] MEDS: Sodium Chloride 0.9% 10 ML Syringe FLUSH PRN ×6 (05:25→23:37)
[2018-09-19] MEDS ORDERED: Potassium Chloride 20 MEQ Tab.ER PO SCH (08:00)
[2018-09-19] MEDS: Magnesium Oxide 400 MG Tab PO SCH ×2 (08:14→17:06)
[2018-09-19] MEDS: Atenolol 50 MG Tab PO SCH (08:14)
[2018-09-19] MEDS: Aspirin 325 MG Tab PO SCH (08:14)
[2018-09-19] MEDS: Azithromycin 500 MG in Sodium Chloride 0.9% 250 ML IV SCH (12:21)
[2018-09-19] MEDS: cefTRIAXone 1 GM in Sodium Chloride 0.9% 100 ML IV SCH ×2 (13:49→23:36)
--- NOTE | 2018-09-19 19:09 | PCM.PN ---
- General Info Date of Service: 09/19/18 Admission Dx/Problem (Free Text): CHF Functional Status: Reports: Tolerating Diet, Ambulating, Urinating - Review of Systems HEENT: Reports: No Symptoms Pulmonary: Reports: Shortness of Breath Cardiovascular: Reports: Dyspnea on Exertion, Other (chest pressure) Gastrointestinal: Reports: No Symptoms Genitourinary: Reports: No Symptoms Musculoskeletal: Reports: No Symptoms Skin: Reports: No Symptoms Neurological: Reports: Dizziness Psychiatric: Reports: No Symptoms - Patient Data Vitals - Most Recent: Last Vital Signs Temp 97.8 F 09/19/18 16:00 Pulse 62 09/19/18 16:00 Resp 16 09/19/18 16:00 BP 141/64 H 09/19/18 16:00 Pulse Ox 94 L 09/19/18 16:00 Weight - Most Recent: 204 lb 8 oz I&O - Last 24 Hours: Intake & Output 09/19/18 09/19/18 09/19/18 06:59 14:59 22:59 Intake Total 1050 Output Total 350 Balance 700 Lab Results Last 24 Hours: Laboratory Results - last 24 hr 09/19/18 09/19/18 09/19/18 Range/Units 07:05 07:08 07:08 WBC 9.2 (4.0-10.2) K/uL RBC 5.66 H (4.33-5.41) M/uL Hgb 17.3 H (13.1-16.8) g/dL Hct 51.5 H (39.0-49.0) % MCV 91.0 (84.0-98.0) fL MCH 30.6 (28.2-33.3) pg MCHC 33.6 (31.7-36.0) g/dL RDW 13.7 (11.2-14.1) % Plt Count 135 L (150-350) K/uL Neut % (Auto) 52.1 (45.0-80.0) % Lymph % (Auto) 38.2 (10.0-50.0) % [place] % (Auto) 8.3 (2.0-14.0) % Eos % (Auto) 1.1 (0.0-5.0) % Baso % (Auto) 0.3 (0.0-2.0) % Neut # (Auto) 4.80 (1.40-7.00) K/uL Lymph # (Auto) 3.53 H (0.50-3.50) K/uL [place] # (Auto) 0.77 (0.00-1.00) K/uL Eos # (Auto) 0.10 (0.00-0.50) K/uL Baso # (Auto) 0.03 (0.00-0.20) K/uL PT 10.9 (9.5-12.0) SEC INR 1.0 APTT 33.1 H (21.0-31.3) SEC D-Dimer, Quantitative (0-400) ng/mL Sodium (136-145) mmol/L Potassium (3.5-5.1) mmol/L Chloride (98-107) mmol/L Carbon Dioxide (21.0-32.0) mmol/L BUN (7-18) mg/dL Creatinine (0.51-1.17) mg/dL Est Cr Clr Drug Dosing mL/min Estimated GFR (MDRD) mL/min Glucose (74-106) mg/dL Calcium (8.5-10.1) mg/dL Total Bilirubin (0.2-1.0) mg/dL AST (15-37) U/L ALT (12-78) U/L Alkaline Phosphatase (46-116) IU/L Creatine Kinase (26-308) U/L Creatine Kinase Index (0.0-2.5) % CK-MB (CK-2) (0.00-3.60) ng/mL Troponin I (0.000-0.056) ng/mL C-Reactive Protein 0.5 (<=0.9) mg/dL NT-Pro-B Natriuret Pep (0-125) pg/mL Total Protein (6.4-8.2) g/dL Albumin (3.4-5.0) g/dL 09/19/18 09/19/18 Range/Units 07:08 07:08 WBC (4.0-10.2) K/uL RBC (4.33-5.41) M/uL Hgb (13.1-16.8) g/dL Hct (39.0-49.0) % MCV (84.0-98.0) fL MCH (28.2-33.3) pg MCHC (31.7-36.0) g/dL RDW (11.2-14.1) % Plt Count (150-350) K/uL Neut % (Auto) (45.0-80.0) % Lymph % (Auto) (10.0-50.0) % [place] % (Auto) (2.0-14.0) % Eos % (Auto) (0.0-5.0) % Baso % (Auto) (0.0-2.0) % Neut # (Auto) (1.40-7.00) K/uL Lymph # (Auto) (0.50-3.50) K/uL [place] # (Auto) (0.00-1.00) K/uL Eos # (Auto) (0.00-0.50) K/uL Baso # (Auto) (0.00-0.20) K/uL PT (9.5-12.0) SEC INR APTT (21.0-31.3) SEC D-Dimer, Quantitative 268 (0-400) ng/mL Sodium 141 (136-145) mmol/L Potassium 4.5 (3.5-5.1) mmol/L Chloride 102 (98-107) mmol/L Carbon Dioxide 33.9 H (21.0-32.0) mmol/L BUN 38 H (7-18) mg/dL Creatinine 2.14 H (0.51-1.17) mg/dL Est Cr Clr Drug Dosing 27.39 mL/min Estimated GFR (MDRD) 30 mL/min Glucose 157 H (74-106) mg/dL Calcium 9.6 (8.5-10.1) mg/dL Total Bilirubin 0.5 (0.2-1.0) mg/dL AST 30 (15-37) U/L ALT 30 (12-78) U/L Alkaline Phosphatase 35 L (46-116) IU/L Creatine Kinase 290 (26-308) U/L Creatine Kinase Index 0.4 (0.0-2.5) % CK-MB (CK-2) 1.30 (0.00-3.60) ng/mL Troponin I 0.045 (0.000-0.056) ng/mL C-Reactive Protein (<=0.9) mg/dL NT-Pro-B Natriuret Pep 318 H (0-125) pg/mL Total Protein 6.7 (6.4-8.2) g/dL Albumin 3.7 (3.4-5.0) g/dL Med Orders - Current: Current Medications Acetaminophen (Tylenol) 650 mg PO Q4H PRN PRN Reason: Pain Last Admin: 09/19/18 05:23 Dose: 650 mg Enoxaparin Sodium (Lovenox) 30 mg SUBCUT DAILY [facility] Fenofibrate (Fenofibrate) 134 mg PO BEDTIME [facility] Last Admin: 09/18/18 20:25 Dose: 134 mg Furosemide (Lasix) 40 mg IVPUSH DAILY [facility] Azithromycin 500 mg/ Sodium (Chloride) 250 mls @ 250 mls/hr IV Q24H [facility] Last Admin: 09/19/18 12:21 Dose: 250 mls/hr Ceftriaxone Sodium 1 gm/ (Sodium Chloride) 100 mls @ 200 mls/hr IV Q12H [facility] Last Admin: 09/19/18 13:49 Dose: 200 mls/hr Lisinopril (Prinivil) 10 mg PO BEDTIME [facility] Last Admin: 09/18/18 20:31 Dose: 10 mg Magnesium Oxide (Magnesium Oxide) 400 mg PO BID [facility] Last Admin: 09/19/18 17:06 Dose: 400 mg Metoprolol Succinate (Toprol Xl) 25 mg PO DAILY [facility] Simvastatin (Zocor) 40 mg PO BEDTIME [facility] Last Admin: 09/18/18 20:24 Dose: 40 mg Sodium Chloride (Saline Flush) 10 ml FLUSH ASDIRECTED PRN PRN Reason: Keep Vein Open Last Admin: 09/19/18 14:22 Dose: 10 ml Sodium Chloride (Saline Flush) 10 ml FLUSH Q12HR [facility] Temazepam (Restoril) 15 mg PO BEDTIME PRN PRN Reason: Insomnia Discontinued Medications Aspirin (Aspirin) 324 mg CHEW ONETIME ONE Stop: 09/17/18 10:32 Last Admin: 09/17/18 10:43 Dose: 324 mg Aspirin (Aspirin) 325 mg PO DAILY [facility] Last Admin: 09/19/18 08:14 Dose: 325 mg Atenolol (Tenormin) 50 mg PO DAILY [facility] Last Admin: 09/19/18 08:14 Dose: 50 mg Enoxaparin Sodium (Lovenox) 60 mg SUBCUT Q24H [facility] Last Admin: 09/17/18 15:16 Dose: Not Given Enoxaparin Sodium (Lovenox) 100 mg SUBCUT Q24H [facility] Last Admin: 09/17/18 15:38 Dose: 100 mg Enoxaparin Sodium (Lovenox) 100 mg SUBCUT Q12H [facility] Last Admin: 09/19/18 05:24 Dose: 100 mg Famotidine (Pepcid) 40 mg IVPUSH ONETIME ONE Stop: 09/17/18 10:32 Last Admin: 09/17/18 10:46 Dose: 40 mg Furosemide (Lasix) 60 mg IVPUSH NOW ONE Stop: 09/17/18 11:29 Last Admin: 09/17/18 11:40 Dose: 60 mg Furosemide (Lasix) 40 mg IVPUSH Q8H [facility] Last Admin: 09/19/18 05:23 Dose: 40 mg Iopamidol (Isovue-370 (76%)) 100 ml IVPUSH ONETIME ONE Stop: 09/17/18 12:01 Last Admin: 09/17/18 13:05 Dose: 100 ml Magnesium Oxide (Magnesium Oxide) 400 mg PO DAILY [facility] Last Admin: 09/18/18 07:30 Dose: 400 mg Metoprolol Tartrate (Lopressor) 2.5 mg IVPUSH ONETIME ONE Stop: 09/17/18 10:32 Last Admin: 09/17/18 10:46 Dose: 2.5 mg Nitroglycerin (Nitrostat) 0.4 mg SL ONETIME ONE Stop: 09/17/18 12:32 Last Admin: 09/17/18 12:42 Dose: 0.4 mg Potassium Chloride (Klor-Con M20) 20 meq PO TID [facility] Last Admin: 09/18/18 18:12 Dose: 20 meq Potassium Chloride (Klor-Con M20) 40 meq PO ONETIME ONE Stop: 09/18/18 19:58 Last Admin: 09/18/18 20:31 Dose: 40 meq Potassium Chloride (Klor-Con M20) 30 meq PO TID [facility] Last Admin: 09/19/18 08:12 Dose: 30 meq Sodium Chloride (Saline Flush) 10 ml FLUSH Q12HR PRN PRN Reason: Keep Vein Open Ticagrelor (Brilinta) 180 mg PO ONETIME ONE Stop: 09/17/18 10:32 Last Admin: 09/17/18 10:44 Dose: 180 mg - Exam Quality Assessment: Supplemental Oxygen, DVT Prophylaxis General: Alert, Cooperative, No Acute Distress HEENT: Mucous Membr. Moist/Crescent Neck: Trachea Midline, No JVD Lungs: Clear to Auscultation, Normal Respiratory Effort Cardiovascular: Regular Rate, Regular Rhythm, Other (muffled heart sounds) GI/Abdominal Exam: Soft, Non-Tender, No Distention (Male) Exam: Deferred Back Exam: Normal Inspection Extremities: Normal Inspection, Non-Tender, No Pedal Edema Skin: Warm, Dry, Intact Neurological: No New Focal Deficit Psy/Mental Status: Alert, Normal Affect, Normal Mood - Problem List & Annotations (1) Interstitial lung disease SNOMED Code(s): 023847126 Code(s): J84.9 - INTERSTITIAL PULMONARY DISEASE, UNSPECIFIED Status: Acute Priority: High Current Visit: Yes (2) CHF, Congestive heart failure SNOMED Code(s): 60315882 Code(s): I50.9 - HEART FAILURE, UNSPECIFIED Status: Acute Priority: High Current Visit: Yes Onset Date: 09/17/18 Annotation/Comment:: Urine output s Excellent with Current IV Lasix Therapy. Note Some Mild Developing Renal Insufficiency with Additional Leg Cramps despite Low Normal Potassium Level. Note mild centralized CHF by chest x-ray on admission with known history of recurrent CHF and diastolic dysfunction. Note recent stress echocardiogram on 11/23/17 and subsequent echocardiogram on 01/15/18 showing excellent ejection fraction of 65% with otherwise results as above. Negative workup for acute LA at this time, although borderline high normal troponin I and mildly progressive BNP elevation. Developing Renal insufficiency may be a contributing factor to these findings. Chest pain protocol was initiated in the emergency room. Sublingual nitroglycerin was given in the emergency room for blood pressure control. Only some improvement of his blood pressure with IV Lopressor. Cardiology consultation advisable at discharge with consideration of possible future heart catheterization. Note multiple previous negative stress tests as per emergency room note. High-dose IV Lasix therapy was initiated in the emergency room. Note previously known mild pericardial effusion which was stable by CT of the chest on admission. [facility] [place] in the [place]. Chest x-ray and blood work to be repeated in the a.m. (3) COPD (chronic obstructive pulmonary disease) SNOMED Code(s): 92356950 Code(s): J44.9 - CHRONIC OBSTRUCTIVE PULMONARY DISEASE, UNSPECIFIED Status : Acute Priority: Medium Current Visit: Yes Onset Date: 09/17/18 Qualifiers: COPD type: emphysema Emphysema type: panlobular Qualified Code(s): J43.1 - Panlobular emphysema Annotation/Comment:: COPD by chest x-ray. Note history of dyspnea. Possible pulmonary component of his symptoms. Consider PFTs on an outpatient basis. No recent fever or bronchitic type symptoms. (4) D-dimer, elevated SNOMED Code(s): 397286874 Code(s): R79.89 - OTHER SPECIFIED ABNORMAL FINDINGS OF BLOOD CHEMISTRY Status: Acute Priority: High Current Visit: Yes Onset Date: 09/18/18 Annotation/Comment:: Improved d-dimer with aggressive Lovenox therapy at VTE treatment dose. Continue this therapy for now. Note negative CTA of the chest on admission. Venous Doppler studies to be conducted in the a.m. (5) Hypomagnesemia SNOMED Code(s): 357885765 Code(s): E83.42 - HYPOMAGNESEMIA Status: Acute Priority: Medium Current Visit: Yes Onset Date: 09/17/18 Annotation/Comment:: Increased magnesium oxide therapy especially in light of IV Lasix therapy on admission with close observation of patient's leg cramps. (6) Renal insufficiency SNOMED Code(s): 892455279, 456287915 Code(s): N28.9 - DISORDER OF KIDNEY AND URETER, UNSPECIFIED Status: Acute Priority: Medium Current Visit: Yes Onset Date: 09/18/18 Annotation/ Comment:: Mild Progressive creatinine level with this of IV Lasix therapy, which will be continued for now. Continue to observe his renal function closely. Increase potassium supplementation for now secondary to his leg cramps. Blood Work to be repeated in the a.m. 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 (8) Hyperlipidemia SNOMED Code(s): 88032119 Code(s): E78.5 - HYPERLIPIDEMIA, UNSPECIFIED Status: Chronic Priority: Medium Current Visit: Yes Qualifiers: Hyperlipidemia type: unspecified Qualified Code(s): E78.5 - Hyperlipidemia , unspecified Annotation/Comment:: Lipid Panel on 09/18 shows significant persistent dyslipidemia and hypertriglyceridemia. Further medication adjustment by [facility] in the a.m. per their discretion. Weight loss in moderation advisable. (9) Hypertension SNOMED Code(s): 99081076 Code(s): I10 - ESSENTIAL (PRIMARY) HYPERTENSION Status: Chronic Priority : Medium Current Visit: Yes Qualifiers: Hypertension type: essential hypertension Qualified Code(s): I10 - Essential (primary) hypertension Annotation/Comment:: As above. Blood Pressures under relatively good control for now. Continue to observe closely with medication adjustments depending on his clinical course. (10) Osteoarthritis SNOMED Code(s): 342745279 Code(s): M19.90 - UNSPECIFIED OSTEOARTHRITIS, UNSPECIFIED SITE Status: Chronic Priority: Medium Current Visit: Yes Qualifiers: Osteoarthritis location: multiple joints Osteoarthritis type: primary Qualified Code(s): M15.0 - Primary generalized (osteo)arthritis Annotation/Comment:: Stable by history with history of hyperuricemia with no recent gout attacks, etc. (11) Peptic reflux disease SNOMED Code(s): 758508485 Code(s): K21.9 - GASTRO-ESOPHAGEAL REFLUX DISEASE WITHOUT ESOPHAGITIS Status: Chronic Priority: Medium Current Visit: Yes Annotation/Comment:: High-dose IV Pepcid given in the emergency room. No abdominal complaints. - Problem List Review Problem List Initiated/Reviewed/Updated: Yes - My Orders Last 24 Hours: My Active Orders 09/19/18 11:30 Azithromycin [Zithromax] 500 mg Sodium Chloride 0.9% [Normal Saline] 250 ml IV Q24H 09/19/18 12:00 Consult to Case Management/Environmental Epidemiologist [CONS] Routine Consult to Occupational Therapy [OT Evaluation and Treatment] [CONS] Routine Consult to Physical Therapy [PT Evaluation and Treatment] [CONS] Routine 09/19/18 12:30 cefTRIAXone [Rocephin] 1 gm Sodium Chloride 0.9% [Normal Saline] 100 ml IV Q12H 09/19/18 20:00 Sodium Chloride 0.9% [Saline Flush] 10 ml FLUSH Q12HR 09/19/18 Lunch Heart Healthy Diet [DIET] 09/20/18 05:11 BLOOD GAS VENOUS [BG] Routine CBC WITH AUTO DIFF [HEME] DAILY CMP [COMPREHENSIVE METABOLIC PN,CMP] [CHEM] DAILY CRP [C-REACTIVE PROTEIN] [CHEM] DAILY MAGNESIUM [CHEM] Routine MYCOPLASMA IGM RAPID [MREF] Routine 09/20/18 08:00 Enoxaparin [Lovenox] 30 mg SUBCUT DAILY Furosemide [Lasix] 40 mg IVPUSH DAILY Metoprolol Succinate [Toprol XL] 25 mg PO DAILY 09/21/18 05:11 CBC WITH AUTO DIFF [HEME] DAILY CMP [COMPREHENSIVE METABOLIC PN,CMP] [CHEM] DAILY CRP [C-REACTIVE PROTEIN] [CHEM] DAILY - Assessment Assessment:: As above - Plan Plan:: As above. Extensive precautions were given to the patient, who is in agreement with the treatment plan. [facility] [place] in [place]. Anticipate an additional 1 -2 days of inpatient/acute care secondary to multiple health issues as above. 09/19/2018 Darren Rivera MD Had the pressure feeling in his chest again today. Feels better now. LA workup negative. GFR had decreased by ~50% so decrease lasix. Chest x-ray showing interstitial changes. Will check for mycoplasma and start treatment. He saw configuration specialist last November at [facility].
[2018-09-19] MEDS: Sodium Chloride 0.9% 10 ML Syringe FLUSH SCH (19:59)
[2018-09-19] MEDS: Fenofibrate,Micronized 134 MG Cap PO SCH (19:59)
[2018-09-19] MEDS: Simvastatin 20 MG Tab PO SCH (19:59)
[2018-09-20] MEDS: Magnesium Oxide 400 MG Tab PO SCH (07:31)
[2018-09-20] MEDS: Acetaminophen 325 MG Tab PO PRN (07:31)
[2018-09-20] MEDS: Sodium Chloride 0.9% 10 ML Syringe FLUSH SCH (07:37)
[2018-09-20 07:44] LABS: O2 DELIVERY DEVICE NASAL CANNULA
[2018-09-20] MEDS ORDERED: Enoxaparin 30 MG/0.3 ML Syringe SUBCUT SCH (08:00)
[2018-09-20] MEDS ORDERED: Furosemide 40 MG/4 ML VIAL IVPUSH SCH (08:00)
[2018-09-20] MEDS ORDERED: Metoprolol Succinate 25 MG Tab.ER PO SCH (08:00)
[2018-09-20 08:05] LABS: O2 SATURATION VENOUS 97 %; PCO2 VENOUS 63 mmHG (41-51); PH,VENOUS 7.33 (7.31-7.41); PO2 VENOUS 102 mmHG
[2018-09-20 08:06] LABS: BASE EXCESS VENOUS 7 mmol/L ((-2)-3); BICARBONATE,VENOUS 33 mmol/L (23-28)
[2018-09-20 08:12] LABS: CHLORIDE,CL 102 mmol/L (98-107); SODIUM,NA 141 mmol/L (136-145)
[2018-09-20] MEDS: Sodium Chloride 0.9% 10 ML Syringe FLUSH PRN ×2 (11:51→13:06)
[2018-09-20] MEDS: Azithromycin 500 MG in Sodium Chloride 0.9% 250 ML IV SCH (11:51)
[2018-09-20 12:37] VITALS: BP 142/71
[2018-09-20] MEDS: cefTRIAXone 1 GM in Sodium Chloride 0.9% 100 ML IV SCH (13:04)
--- NOTE | 2018-09-20 16:52 | PCM.PN ---
- General Info Date of Service: 09/20/18 Admission Dx/Problem (Free Text): CHF Functional Status: Reports: Pain Controlled, Tolerating Diet, Ambulating, Urinating - Review of Systems General: Reports: No Symptoms HEENT: Reports: No Symptoms Pulmonary: Reports: No Symptoms Cardiovascular: Reports: No Symptoms Gastrointestinal: Reports: No Symptoms Genitourinary: Reports: No Symptoms Musculoskeletal: Reports: No Symptoms Skin: Reports: No Symptoms Neurological: Reports: No Symptoms Psychiatric: Reports: No Symptoms - Patient Data Vitals - Most Recent: Last Vital Signs Temp 98.2 F 09/20/18 12:00 Pulse 73 09/20/18 12:00 Resp 17 09/20/18 12:00 BP 142/71 H 09/20/18 12:00 Pulse Ox 93 L 09/20/18 12:00 Weight - Most Recent: 207 lb 8 oz I&O - Last 24 Hours: Intake & Output 09/20/18 09/20/18 09/20/18 06:59 14:59 22:59 Intake Total 1500 710 Output Total 600 450 Balance 900 260 Lab Results Last 24 Hours: Laboratory Results - last 24 hr 09/20/18 09/20/18 09/20/18 Range/Units 07:25 07:25 07:25 WBC 7.2 (4.0-10.2) K/uL RBC 5.64 H (4.33-5.41) M/uL Hgb 16.9 H (13.1-16.8) g/dL Hct 52.0 H (39.0-49.0) % MCV 92.2 (84.0-98.0) fL MCH 30.0 (28.2-33.3) pg MCHC 32.5 (31.7-36.0) g/dL RDW 13.4 (11.2-14.1) % Plt Count 127 L (150-350) K/uL Neut % (Auto) 46.4 (45.0-80.0) % Lymph % (Auto) 43.8 (10.0-50.0) % Williamson % (Auto) 7.7 (2.0-14.0) % Eos % (Auto) 1.8 (0.0-5.0) % Baso % (Auto) 0.3 (0.0-2.0) % Neut # (Auto) 3.36 (1.40-7.00) K/uL Lymph # (Auto) 3.17 (0.50-3.50) K/uL Williamson # (Auto) 0.56 (0.00-1.00) K/uL Eos # (Auto) 0.13 (0.00-0.50) K/uL Baso # (Auto) 0.02 (0.00-0.20) K/uL VBG pH 7.33 (7.31-7.41) VBG pCO2 63 H (41-51) mmHG VBG pO2 102 mmHG VBG HCO3 33 H (23-28) mmol/L VBG Total CO2 35 mmol/L VBG O2 Saturation 97 % VBG Base Excess 7 H ((-2)-3) mmol/L O2 Delivery Device Nasal cannula Sodium 141 (136-145) mmol/L Potassium 4.6 (3.5-5.1) mmol/L Chloride 102 (98-107) mmol/L Carbon Dioxide 33.0 H (21.0-32.0) mmol/L BUN 37 H (7-18) mg/dL Creatinine 1.45 H (0.51-1.17) mg/dL Est Cr Clr Drug Dosing 40.42 mL/min Estimated GFR (MDRD) 47 mL/min Glucose 143 H (74-106) mg/dL Calcium 9.2 (8.5-10.1) mg/dL Magnesium 1.8 (1.8-2.4) mg/dL Total Bilirubin 0.6 (0.2-1.0) mg/dL AST 24 (15-37) U/L ALT 27 (12-78) U/L Alkaline Phosphatase 37 L (46-116) IU/L C-Reactive Protein < 0.9 (<=0.9) mg/dL Total Protein 7.0 (6.4-8.2) g/dL Albumin 3.7 (3.4-5.0) g/dL Raul Results Last 24 Hours: Microbiology 09/18/18 11:20 Helicobacter pylori Antigen - Final Stool / Feces Med Orders - Current: Current Medications Acetaminophen (Tylenol) 650 mg PO Q4H PRN PRN Reason: Pain Last Admin: 09/20/18 07:31 Dose: 650 mg Enoxaparin Sodium (Lovenox) 30 mg SUBCUT DAILY [facility] Last Admin: 09/20/18 07:32 Dose: 30 mg Fenofibrate (Fenofibrate) 134 mg PO BEDTIME [facility] Last Admin: 09/19/18 19:59 Dose: 134 mg Azithromycin 500 mg/ Sodium (Chloride) 250 mls @ 250 mls/hr IV Q24H [facility] Last Admin: 09/20/18 11:51 Dose: 250 mls/hr Ceftriaxone Sodium 1 gm/ (Sodium Chloride) 100 mls @ 200 mls/hr IV Q12H [facility] Last Admin: 09/20/18 13:04 Dose: 200 mls/hr Magnesium Oxide (Magnesium Oxide) 400 mg PO BID [facility] Last Admin: 09/20/18 07:31 Dose: 400 mg Metoprolol Succinate (Toprol Xl) 25 mg PO DAILY [facility] Last Admin: 09/20/18 07:31 Dose: 25 mg Simvastatin (Zocor) 40 mg PO BEDTIME [facility] Last Admin: 09/19/18 19:59 Dose: 40 mg Sodium Chloride (Saline Flush) 10 ml FLUSH ASDIRECTED PRN PRN Reason: Keep Vein Open Last Admin: 09/20/18 13:06 Dose: 10 ml Sodium Chloride (Saline Flush) 10 ml FLUSH Q12HR [facility] Last Admin: 09/20/18 07:37 Dose: 10 ml Temazepam (Restoril) 15 mg PO BEDTIME PRN PRN Reason: Insomnia Last Admin: 09/19/18 23:39 Dose: 15 mg Discontinued Medications Aspirin (Aspirin) 324 mg CHEW ONETIME ONE Stop: 09/17/18 10:32 Last Admin: 09/17/18 10:43 Dose: 324 mg Aspirin (Aspirin) 325 mg PO DAILY [facility] Last Admin: 09/19/18 08:14 Dose: 325 mg Atenolol (Tenormin) 50 mg PO DAILY [facility] Last Admin: 09/19/18 08:14 Dose: 50 mg Enoxaparin Sodium (Lovenox) 60 mg SUBCUT Q24H [facility] Last Admin: 09/17/18 15:16 Dose: Not Given Enoxaparin Sodium (Lovenox) 100 mg SUBCUT Q24H [facility] Last Admin: 09/17/18 15:38 Dose: 100 mg Enoxaparin Sodium (Lovenox) 100 mg SUBCUT Q12H [facility] Last Admin: 09/19/18 05:24 Dose: 100 mg Famotidine (Pepcid) 40 mg IVPUSH ONETIME ONE Stop: 09/17/18 10:32 Last Admin: 09/17/18 10:46 Dose: 40 mg Furosemide (Lasix) 60 mg IVPUSH NOW ONE Stop: 09/17/18 11:29 Last Admin: 09/17/18 11:40 Dose: 60 mg Furosemide (Lasix) 40 mg IVPUSH Q8H [facility] Last Admin: 09/19/18 05:23 Dose: 40 mg Furosemide (Lasix) 40 mg IVPUSH DAILY [facility] Iopamidol (Isovue-370 (76%)) 100 ml IVPUSH ONETIME ONE Stop: 09/17/18 12:01 Last Admin: 09/17/18 13:05 Dose: 100 ml Lisinopril (Prinivil) 10 mg PO BEDTIME [facility] Last Admin: 09/18/18 20:31 Dose: 10 mg Magnesium Oxide (Magnesium Oxide) 400 mg PO DAILY [facility] Last Admin: 09/18/18 07:30 Dose: 400 mg Metoprolol Tartrate (Lopressor) 2.5 mg IVPUSH ONETIME ONE Stop: 09/17/18 10:32 Last Admin: 09/17/18 10:46 Dose: 2.5 mg Nitroglycerin (Nitrostat) 0.4 mg SL ONETIME ONE Stop: 09/17/18 12:32 Last Admin: 09/17/18 12:42 Dose: 0.4 mg Potassium Chloride (Klor-Con M20) 20 meq PO TID [facility] Last Admin: 09/18/18 18:12 Dose: 20 meq Potassium Chloride (Klor-Con M20) 40 meq PO ONETIME ONE Stop: 09/18/18 19:58 Last Admin: 09/18/18 20:31 Dose: 40 meq Potassium Chloride (Klor-Con M20) 30 meq PO TID [facility] Last Admin: 09/19/18 08:12 Dose: 30 meq Sodium Chloride (Saline Flush) 10 ml FLUSH Q12HR PRN PRN Reason: Keep Vein Open Ticagrelor (Brilinta) 180 mg PO ONETIME ONE Stop: 09/17/18 10:32 Last Admin: 09/17/18 10:44 Dose: 180 mg - Exam Quality Assessment: Supplemental Oxygen General: Alert, Cooperative, No Acute Distress HEENT: Mucous Membr. Moist/Hawkins Neck: Trachea Midline, No JVD Lungs: Clear to Auscultation, Normal Respiratory Effort Cardiovascular: Regular Rate, Regular Rhythm GI/Abdominal Exam: Soft, Non-Tender, No Distention (Male) Exam: Deferred Back Exam: Normal Inspection Extremities: Normal Inspection, Non-Tender, No Pedal Edema Skin: Warm, Dry, Intact Neurological: No New Focal Deficit Psy/Mental Status: Alert, Normal Affect, Normal Mood - Problem List & Annotations (1) Interstitial lung disease SNOMED Code(s): 929229921 Code(s): J84.9 - INTERSTITIAL PULMONARY DISEASE, UNSPECIFIED Status: Acute Priority: High Current Visit: Yes (2) CHF, Congestive heart failure SNOMED Code(s): 43760779 Code(s): I50.9 - HEART FAILURE, UNSPECIFIED Status: Acute Priority: High Current Visit: Yes Onset Date: 09/17/18 Annotation/Comment:: Urine output s Excellent with Current IV Lasix Therapy. Note Some Mild Developing Renal Insufficiency with Additional Leg Cramps despite Low Normal Potassium Level. Note mild centralized CHF by chest x-ray on admission with known history of recurrent CHF and diastolic dysfunction. Note recent stress echocardiogram on 11/23/17 and subsequent echocardiogram on 01/15/18 showing excellent ejection fraction of 65% with otherwise results as above. Negative workup for acute HI at this time, although borderline high normal troponin I and mildly progressive BNP elevation. Developing Renal insufficiency may be a contributing factor to these findings. Chest pain protocol was initiated in the emergency room. Sublingual nitroglycerin was given in the emergency room for blood pressure control. Only some improvement of his blood pressure with IV Lopressor. Cardiology consultation advisable at discharge with consideration of possible future heart catheterization. Note multiple previous negative stress tests as per emergency room note. High-dose IV Lasix therapy was initiated in the emergency room. Note previously known mild pericardial effusion which was stable by CT of the chest on admission. [facility] will assume the patient's care in the a.m. Chest x-ray and blood work to be repeated in the a.m. (3) COPD (chronic obstructive pulmonary disease) SNOMED Code(s): 75956274 Code(s): J44.9 - CHRONIC OBSTRUCTIVE PULMONARY DISEASE, UNSPECIFIED Status : Acute Priority: Medium Current Visit: Yes Onset Date: 09/17/18 Qualifiers: COPD type: emphysema Emphysema type: panlobular Qualified Code(s): J43.1 - Panlobular emphysema Annotation/Comment:: COPD by chest x-ray. Note history of dyspnea. Possible pulmonary component of his symptoms. Consider PFTs on an outpatient basis. No recent fever or bronchitic type symptoms. (4) D-dimer, elevated SNOMED Code(s): 585632104 Code(s): R79.89 - OTHER SPECIFIED ABNORMAL FINDINGS OF BLOOD CHEMISTRY Status: Acute Priority: High Current Visit: Yes Onset Date: 09/18/18 Annotation/Comment:: Improved d-dimer with aggressive Lovenox therapy at VTE treatment dose. Continue this therapy for now. Note negative CTA of the chest on admission. Venous Doppler studies to be conducted in the a.m. (5) Hypomagnesemia SNOMED Code(s): 178585545 Code(s): E83.42 - HYPOMAGNESEMIA Status: Acute Priority: Medium Current Visit: Yes Onset Date: 09/17/18 Annotation/Comment:: Increased magnesium oxide therapy especially in light of IV Lasix therapy on admission with close observation of patient's leg cramps. (6) Renal insufficiency SNOMED Code(s): 707046431, 444351822 Code(s): N28.9 - DISORDER OF KIDNEY AND URETER, UNSPECIFIED Status: Acute Priority: Medium Current Visit: Yes Onset Date: 09/18/18 Annotation/ Comment:: Mild Progressive creatinine level with this of IV Lasix therapy, which will be continued for now. Continue to observe his renal function closely. Increase potassium supplementation for now secondary to his leg cramps. Blood Work to be repeated in the a.m. (7) Diabetes mellitus SNOMED Code(s): 50392145 Code(s): E11.9 - TYPE 2 DIABETES MELLITUS WITHOUT COMPLICATIONS Status: Chronic Priority: Medium Current Visit: Yes Qualifiers: Diabetes mellitus type: type 2 Diabetes mellitus extermination supervisor insulin use: without residential use Diabetes mellitus complication status: with kidney complications Diabetes mellitus complication detail: with chronic kidney disease Chronic kidney disease stage: stage 2 (mild) Qualified Code(s): E11.22 - Type 2 diabetes mellitus with diabetic chronic kidney disease; N18.2 - Chronic kidney disease, stage 2 (mild) Annotation/Comment:: Glycosylated hemoglobin on 09/18 of 6.4% showing adequate control. (8) Hyperlipidemia SNOMED Code(s): 72182687 Code(s): E78.5 - HYPERLIPIDEMIA, UNSPECIFIED Status: Chronic Priority: Medium Current Visit: Yes Qualifiers: Hyperlipidemia type: unspecified Qualified Code(s): E78.5 - Hyperlipidemia , unspecified Annotation/Comment:: Lipid Panel on 09/18 shows significant persistent dyslipidemia and hypertriglyceridemia. Further medication adjustment by [facility] in the a.m. per their discretion. Weight loss in moderation advisable. (9) Hypertension SNOMED Code(s): 70448595 Code(s): I10 - ESSENTIAL (PRIMARY) HYPERTENSION Status: Chronic Priority : Medium Current Visit: Yes Qualifiers: Hypertension type: essential hypertension Qualified Code(s): I10 - Essential (primary) hypertension Annotation/Comment:: As above. Blood Pressures under relatively good control for now. Continue to observe closely with medication adjustments depending on his clinical course. (10) Osteoarthritis SNOMED Code(s): 571318815 Code(s): M19.90 - UNSPECIFIED OSTEOARTHRITIS, UNSPECIFIED SITE Status: Chronic Priority: Medium Current Visit: Yes Qualifiers: Osteoarthritis location: multiple joints Osteoarthritis type: primary Qualified Code(s): M15.0 - Primary generalized (osteo)arthritis Annotation/Comment:: Stable by history with history of hyperuricemia with no recent gout attacks, etc. (11) Peptic reflux disease SNOMED Code(s): 981564525 Code(s): K21.9 - GASTRO-ESOPHAGEAL REFLUX DISEASE WITHOUT ESOPHAGITIS Status: Chronic Priority: Medium Current Visit: Yes Annotation/Comment:: High-dose IV Pepcid given in the emergency room. No abdominal complaints. - Problem List Review Problem List Initiated/Reviewed/Updated: Yes - My Orders Last 24 Hours: My Active Orders 09/19/18 19:10 Communication Order [RC] ROUTINE 09/19/18 20:00 Sodium Chloride 0.9% [Saline Flush] 10 ml FLUSH Q12HR 09/20/18 07:25 MYCOPLASMA IGM RAPID [MREF] Routine 09/20/18 08:00 Enoxaparin [Lovenox] 30 mg SUBCUT DAILY Metoprolol Succinate [Toprol XL] 25 mg PO DAILY 09/20/18 16:45 Discontinue Telemetry Monitoring [Cardiac Monitoring Discontinue] [RC] Click to Edit Ready for Discharge [RC] PER UNIT ROUTINE Peripheral IV Discontinue [OM.PC] Routine 09/21/18 05:11 CBC WITH AUTO DIFF [HEME] DAILY CMP [COMPREHENSIVE METABOLIC PN,CMP] [CHEM] DAILY CRP [C-REACTIVE PROTEIN] [CHEM] DAILY - Assessment Assessment:: As above - Plan Plan:: As above. Extensive precautions were given to the patient, who is in agreement with the treatment plan. [facility] assumes care in the a.m. Anticipate an additional 1 -2 days of inpatient/acute care secondary to multiple health issues as above. 09/19/2018 Darren Rivera MD Had the pressure feeling in his chest again today. Feels better now. HI workup negative. GFR had decreased by ~50% so decrease lasix. Chest x-ray showing interstitial changes. Will check for mycoplasma and start treatment. He saw hoop punch operator helper last November at [facility]. 09/20/2018 Darren Rivera MD Feels fine. Ready to go home. Will follow up as an out-patient at [facility] and at [id number].
--- NOTE | 2018-09-20 16:53 | PCM.DCSUM1 ---
Discharge Summary - Hospital Course Diagnosis: Stroke: No - Discharge Data Discharge Date: 09/20/18 Discharge Disposition: Home, Self-Care 01 Condition: Good - Discharge Diagnosis/Problem(s) (1) Interstitial lung disease SNOMED Code(s): 724619033 ICD Code: J84.9 - INTERSTITIAL PULMONARY DISEASE, UNSPECIFIED Status: Acute Priority: High Current Visit: Yes (2) CHF, Congestive heart failure SNOMED Code(s): 74893240 ICD Code: I50.9 - HEART FAILURE, UNSPECIFIED Status: Acute Priority: High Current Visit: Yes Onset Date: 09/17/18 Problem Details: Urine output s Excellent with Current IV Lasix Therapy. Note Some Mild Developing Renal Insufficiency with Additional Leg Cramps despite Low Normal Potassium Level. Note mild centralized CHF by chest x-ray on admission with known history of recurrent CHF and diastolic dysfunction. Note recent stress echocardiogram on 11/23/17 and subsequent echocardiogram on 01/15/18 showing excellent ejection fraction of 65% with otherwise results as above. Negative workup for acute NE at this time, although borderline high normal troponin I and mildly progressive BNP elevation. Developing Renal insufficiency may be a contributing factor to these findings. Chest pain protocol was initiated in the emergency room. Sublingual nitroglycerin was given in the emergency room for blood pressure control. Only some improvement of his blood pressure with IV Lopressor. Cardiology consultation advisable at discharge with consideration of possible future heart catheterization. Note multiple previous negative stress tests as per emergency room note. High-dose IV Lasix therapy was initiated in the emergency room. Note previously known mild pericardial effusion which was stable by CT of the chest on admission. [facility] will assume the patient's care in the a.m. Chest x-ray and blood work to be repeated in the a.m. (3) COPD (chronic obstructive pulmonary disease) SNOMED Code(s): 50516316 ICD Code: J44.9 - CHRONIC OBSTRUCTIVE PULMONARY DISEASE, UNSPECIFIED Status : Acute Priority: Medium Current Visit: Yes Onset Date: 09/17/18 Problem Details: COPD by chest x-ray. Note history of dyspnea. Possible pulmonary component of his symptoms. Consider PFTs on an outpatient basis. No recent fever or bronchitic type symptoms. Qualifiers: COPD type: emphysema Emphysema type: panlobular Qualified Code(s): J43.1 - Panlobular emphysema (4) D-dimer, elevated SNOMED Code(s): 013866698 ICD Code: R79.89 - OTHER SPECIFIED ABNORMAL FINDINGS OF BLOOD CHEMISTRY Status: Acute Priority: High Current Visit: Yes Onset Date: 09/18/18 Problem Details: Improved d-dimer with aggressive Lovenox therapy at VTE treatment dose. Continue this therapy for now. Note negative CTA of the chest on admission. Venous Doppler studies to be conducted in the a.m. (5) Hypomagnesemia SNOMED Code(s): 289511667 ICD Code: E83.42 - HYPOMAGNESEMIA Status: Acute Priority: Medium Current Visit: Yes Onset Date: 09/17/18 Problem Details: Increased magnesium oxide therapy especially in light of IV Lasix therapy on admission with close observation of patient's leg cramps. (6) Renal insufficiency SNOMED Code(s): 583635389, 530544570 ICD Code: N28.9 - DISORDER OF KIDNEY AND URETER, UNSPECIFIED Status: Acute Priority: Medium Current Visit: Yes Onset Date: 09/18/18 Problem Details: Mild Progressive creatinine level with this of IV Lasix therapy, which will be continued for now. Continue to observe his renal function closely. Increase potassium supplementation for now secondary to his leg cramps. Blood Work to be repeated in the a.m. (7) Diabetes mellitus SNOMED Code(s): 13293875 ICD Code: E11.9 - TYPE 2 DIABETES MELLITUS WITHOUT COMPLICATIONS Status: Chronic Priority: Medium Current Visit: Yes Problem Details: Glycosylated hemoglobin on 09/18 of 6.4% showing adequate control. Qualifiers: Diabetes mellitus type: type 2 Diabetes mellitus terminal makeup operator insulin use: without terminal makeup operator use Diabetes mellitus complication status: with kidney complications Diabetes mellitus complication detail: with chronic kidney disease Chronic kidney disease stage: stage 2 (mild) Qualified Code(s): E11.22 - Type 2 diabetes mellitus with diabetic chronic kidney disease; N18.2 - Chronic kidney disease, stage 2 (mild) (8) Hyperlipidemia SNOMED Code(s): 78581110 ICD Code: E78.5 - HYPERLIPIDEMIA, UNSPECIFIED Status: Chronic Priority: Medium Current Visit: Yes Problem Details: Lipid Panel on 09/18 shows significant persistent dyslipidemia and hypertriglyceridemia. Further medication adjustment by [facility] in the a.m. per their discretion. Weight loss in moderation advisable. Qualifiers: Hyperlipidemia type: unspecified Qualified Code(s): E78.5 - Hyperlipidemia , unspecified (9) Hypertension SNOMED Code(s): 69775484 ICD Code: I10 - ESSENTIAL (PRIMARY) HYPERTENSION Status: Chronic Priority : Medium Current Visit: Yes Problem Details: As above. Blood Pressures under relatively good control for now. Continue to observe closely with medication adjustments depending on his clinical course. Qualifiers: Hypertension type: essential hypertension Qualified Code(s): I10 - Essential (primary) hypertension (10) Osteoarthritis SNOMED Code(s): 713449320 ICD Code: M19.90 - UNSPECIFIED OSTEOARTHRITIS, UNSPECIFIED SITE Status: Chronic Priority: Medium Current Visit: Yes Problem Details: Stable by history with history of hyperuricemia with no recent gout attacks, etc. Qualifiers: Osteoarthritis location: multiple joints Osteoarthritis type: primary Qualified Code(s): M15.0 - Primary generalized (osteo)arthritis (11) Peptic reflux disease SNOMED Code(s): 314187066 ICD Code: K21.9 - GASTRO-ESOPHAGEAL REFLUX DISEASE WITHOUT ESOPHAGITIS Status: Chronic Priority: Medium Current Visit: Yes Problem Details: High- dose IV Pepcid given in the emergency room. No abdominal complaints. - Patient Summary/Data Consults: Consultations 09/19/18 12:00 Consult to Case Management/Glue Specialty Supervisor [CONS] Routine Consult to Occupational Therapy [OT Evaluation and Treatment] [CONS] Routine Consult to Physical Therapy [PT Evaluation and Treatment] [CONS] Routine - Patient Instructions Diet: Diabetic Diet Activity: As Tolerated Driving: May Drive Today Showering/Bathing: May Shower Other/Special Instructions: Appointment with Christina next week at [facility]. Call for an appointment. Appointment with your roustabout supervisor at [facility] in the next couple of weeks. - Discharge Plan *PRESCRIPTION DRUG MONITORING PROGRAM REVIEWED*: Not Applicable *COPY OF PRESCRIPTION DRUG MONITORING REPORT IN PATIENT SHAYNA: Not Applicable Prescriptions/Med Rec: Azithromycin [Zithromax] 500 mg PO DAILY #5 tab Home Medications: Home Meds Cinnamon Bark [Cinnamon] 500 mg PO DAILY 01/12/17 [History] Fenofibrate,Micronized [Fenofibrate] 134 mg PO BEDTIME 01/12/17 [History] Lisinopril 10 mg PO BEDTIME 01/12/17 [History] metFORMIN [Glucophage] 500 mg PO BIDMEALS 01/12/17 [History] Cholecalciferol (Vitamin D3) [Vitamin D3] 1,000 unit PO DAILY 02/09/17 [History] Magnesium 250 mg PO DAILY 02/09/17 [History] Simvastatin 40 mg PO BEDTIME 02/09/17 [History] Ibuprofen [Advil] 4 tab PO Q6H PRN 06/20/18 [History] Aspirin 325 mg PO DAILY 09/17/18 [History] Atenolol [Tenormin] 50 mg PO DAILY 09/17/18 [History] Cyanocobalamin (Vitamin B-12) [B-12] 2,500 mcg SL DAILY 09/17/18 [History] Cyclobenzaprine [Flexeril] 10 mg PO Q8HR PRN 09/17/18 [History] Azithromycin [Zithromax] 500 mg PO DAILY #5 tab 09/20/18 [Rx] Oxygen Therapy Mode: Room Air Forms: ED Department Discharge Referrals: Christina Sexton NP [Primary Care Provider] - - Discharge Summary/Plan Comment DC Time >30 min.: No - Patient Data Vitals - Most Recent: Last Vital Signs Temp 98.2 F 09/20/18 12:00 Pulse 73 09/20/18 12:00 Resp 17 09/20/18 12:00 BP 142/71 H 09/20/18 12:00 Pulse Ox 93 L 09/20/18 12:00 Weight - Most Recent: 207 lb 8 oz I&O - Last 24 hours: Intake & Output 09/20/18 09/20/18 09/20/18 06:59 14:59 22:59 Intake Total 1500 710 Output Total 600 450 Balance 900 260 Lab Results - Last 24 hrs: Laboratory Results - last 24 hr 09/20/18 09/20/18 09/20/18 Range/Units 07:25 07:25 07:25 WBC 7.2 (4.0-10.2) K/uL RBC 5.64 H (4.33-5.41) M/uL Hgb 16.9 H (13.1-16.8) g/dL Hct 52.0 H (39.0-49.0) % MCV 92.2 (84.0-98.0) fL MCH 30.0 (28.2-33.3) pg MCHC 32.5 (31.7-36.0) g/dL RDW 13.4 (11.2-14.1) % Plt Count 127 L (150-350) K/uL Neut % (Auto) 46.4 (45.0-80.0) % Lymph % (Auto) 43.8 (10.0-50.0) % Phillips % (Auto) 7.7 (2.0-14.0) % Eos % (Auto) 1.8 (0.0-5.0) % Baso % (Auto) 0.3 (0.0-2.0) % Neut # (Auto) 3.36 (1.40-7.00) K/uL Lymph # (Auto) 3.17 (0.50-3.50) K/uL Phillips # (Auto) 0.56 (0.00-1.00) K/uL Eos # (Auto) 0.13 (0.00-0.50) K/uL Baso # (Auto) 0.02 (0.00-0.20) K/uL VBG pH 7.33 (7.31-7.41) VBG pCO2 63 H (41-51) mmHG VBG pO2 102 mmHG VBG HCO3 33 H (23-28) mmol/L VBG Total CO2 35 mmol/L VBG O2 Saturation 97 % VBG Base Excess 7 H ((-2)-3) mmol/L O2 Delivery Device Nasal cannula Sodium 141 (136-145) mmol/L Potassium 4.6 (3.5-5.1) mmol/L Chloride 102 (98-107) mmol/L Carbon Dioxide 33.0 H (21.0-32.0) mmol/L BUN 37 H (7-18) mg/dL Creatinine 1.45 H (0.51-1.17) mg/dL Est Cr Clr Drug Dosing 40.42 mL/min Estimated GFR (MDRD) 47 mL/min Glucose 143 H (74-106) mg/dL Calcium 9.2 (8.5-10.1) mg/dL Magnesium 1.8 (1.8-2.4) mg/dL Total Bilirubin 0.6 (0.2-1.0) mg/dL AST 24 (15-37) U/L ALT 27 (12-78) U/L Alkaline Phosphatase 37 L (46-116) IU/L C-Reactive Protein < 0.9 (<=0.9) mg/dL Total Protein 7.0 (6.4-8.2) g/dL Albumin 3.7 (3.4-5.0) g/dL VENKAT Results - Last 24 hrs: Microbiology 09/18/18 11:20 Helicobacter pylori Antigen - Final Stool / Feces Med Orders - Current: Current Medications Acetaminophen (Tylenol) 650 mg PO Q4H PRN PRN Reason: Pain Last Admin: 09/20/18 07:31 Dose: 650 mg Enoxaparin Sodium (Lovenox) 30 mg SUBCUT DAILY [facility] Last Admin: 09/20/18 07:32 Dose: 30 mg Fenofibrate (Fenofibrate) 134 mg PO BEDTIME [facility] Last Admin: 09/19/18 19:59 Dose: 134 mg Azithromycin 500 mg/ Sodium (Chloride) 250 mls @ 250 mls/hr IV Q24H [facility] Last Admin: 09/20/18 11:51 Dose: 250 mls/hr Ceftriaxone Sodium 1 gm/ (Sodium Chloride) 100 mls @ 200 mls/hr IV Q12H [facility] Last Admin: 09/20/18 13:04 Dose: 200 mls/hr Magnesium Oxide (Magnesium Oxide) 400 mg PO BID [facility] Last Admin: 09/20/18 07:31 Dose: 400 mg Metoprolol Succinate (Toprol Xl) 25 mg PO DAILY [facility] Last Admin: 09/20/18 07:31 Dose: 25 mg Simvastatin (Zocor) 40 mg PO BEDTIME [facility] Last Admin: 09/19/18 19:59 Dose: 40 mg Sodium Chloride (Saline Flush) 10 ml FLUSH ASDIRECTED PRN PRN Reason: Keep Vein Open Last Admin: 09/20/18 13:06 Dose: 10 ml Sodium Chloride (Saline Flush) 10 ml FLUSH Q12HR [facility] Last Admin: 09/20/18 07:37 Dose: 10 ml Temazepam (Restoril) 15 mg PO BEDTIME PRN PRN Reason: Insomnia Last Admin: 09/19/18 23:39 Dose: 15 mg Discontinued Medications Aspirin (Aspirin) 324 mg CHEW ONETIME ONE Stop: 09/17/18 10:32 Last Admin: 09/17/18 10:43 Dose: 324 mg Aspirin (Aspirin) 325 mg PO DAILY [facility] Last Admin: 09/19/18 08:14 Dose: 325 mg Atenolol (Tenormin) 50 mg PO DAILY [facility] Last Admin: 09/19/18 08:14 Dose: 50 mg Enoxaparin Sodium (Lovenox) 60 mg SUBCUT Q24H [facility] Last Admin: 09/17/18 15:16 Dose: Not Given Enoxaparin Sodium (Lovenox) 100 mg SUBCUT Q24H [facility] Last Admin: 09/17/18 15:38 Dose: 100 mg Enoxaparin Sodium (Lovenox) 100 mg SUBCUT Q12H [facility] Last Admin: 09/19/18 05:24 Dose: 100 mg Famotidine (Pepcid) 40 mg IVPUSH ONETIME ONE Stop: 09/17/18 10:32 Last Admin: 09/17/18 10:46 Dose: 40 mg Furosemide (Lasix) 60 mg IVPUSH NOW ONE Stop: 09/17/18 11:29 Last Admin: 09/17/18 11:40 Dose: 60 mg Furosemide (Lasix) 40 mg IVPUSH Q8H [facility] Last Admin: 09/19/18 05:23 Dose: 40 mg Furosemide (Lasix) 40 mg IVPUSH DAILY [facility] Iopamidol (Isovue-370 (76%)) 100 ml IVPUSH ONETIME ONE Stop: 09/17/18 12:01 Last Admin: 09/17/18 13:05 Dose: 100 ml Lisinopril (Prinivil) 10 mg PO BEDTIME [facility] Last Admin: 09/18/18 20:31 Dose: 10 mg Magnesium Oxide (Magnesium Oxide) 400 mg PO DAILY [facility] Last Admin: 09/18/18 07:30 Dose: 400 mg Metoprolol Tartrate (Lopressor) 2.5 mg IVPUSH ONETIME ONE Stop: 09/17/18 10:32 Last Admin: 09/17/18 10:46 Dose: 2.5 mg Nitroglycerin (Nitrostat) 0.4 mg SL ONETIME ONE Stop: 09/17/18 12:32 Last Admin: 09/17/18 12:42 Dose: 0.4 mg Potassium Chloride (Klor-Con M20) 20 meq PO TID [facility] Last Admin: 09/18/18 18:12 Dose: 20 meq Potassium Chloride (Klor-Con M20) 40 meq PO ONETIME ONE Stop: 09/18/18 19:58 Last Admin: 09/18/18 20:31 Dose: 40 meq Potassium Chloride (Klor-Con M20) 30 meq PO TID [facility] Last Admin: 09/19/18 08:12 Dose: 30 meq Sodium Chloride (Saline Flush) 10 ml FLUSH Q12HR PRN PRN Reason: Keep Vein Open Ticagrelor (Brilinta) 180 mg PO ONETIME ONE Stop: 09/17/18 10:32 Last Admin: 09/17/18 10:44 Dose: 180 mg
== END 2018-09-20 17:11 | disposition home or self-care (01) | DRG 292 ==
LOC: LL.ED 10:25 → LL.MS 13:17 → UNDOADMOB 13:17 → OBSVTOIN 13:17
PROVIDERS: ADMIT Family Medicine; ATTEND Family Medicine
DX: I13.0 Hypertensive heart and chronic kidney disease with heart failure and stage 1 through stage 4 chronic kidney disease, or unspecified chronic kidney disease (principal); I50.9 Heart failure, unspecified; I50.30 Unspecified diastolic (congestive) heart failure; I31.3 Pericardial effusion (noninflammatory); J84.9 Interstitial pulmonary disease, unspecified; I42.9 Cardiomyopathy, unspecified; N18.2 Chronic kidney disease, stage 2 (mild); E11.22 Type 2 diabetes mellitus with diabetic chronic kidney disease; J43.1 Panlobular emphysema; R79.89 Other specified abnormal findings of blood chemistry; E83.42 Hypomagnesemia; E78.5 Hyperlipidemia, unspecified; M15.0 Primary generalized (osteo)arthritis; K21.9 Gastro-esophageal reflux disease without esophagitis; I44.0 Atrioventricular block, first degree; Z87.891 Personal history of nicotine dependence; I48.91 Unspecified atrial fibrillation; I73.9 Peripheral vascular disease, unspecified; I35.0 Nonrheumatic aortic (valve) stenosis; K57.90 Diverticulosis of intestine, part unspecified, without perforation or abscess without bleeding; N40.1 Benign prostatic hyperplasia with lower urinary tract symptoms; R33.8 Other retention of urine; N39.498 Other specified urinary incontinence; G89.29 Other chronic pain; M54.9 Dorsalgia, unspecified; M10.9 Gout, unspecified; M54.2 Cervicalgia; E66.9 Obesity, unspecified; Z68.30 Body mass index [BMI] 30.0-30.9, adult; Z79.84 Long term (current) use of oral hypoglycemic drugs; E55.9 Vitamin D deficiency, unspecified; D75.1 Secondary polycythemia; H54.7 Unspecified visual loss; H35.30 Unspecified macular degeneration; Z88.8 Allergy status to other drugs, medicaments and biological substances; Z79.899 Other long term (current) drug therapy; Z79.4 Long term (current) use of insulin; Z79.82 Long term (current) use of aspirin; Z79.1 Long term (current) use of non-steroidal anti-inflammatories (NSAID)
CPT/HCPCS: 36415; 71045; 71046; 71275; 80053; 80061; 82272; 82550; 82553; 82803; 83036; 83605; 83735; 83880; 84443; 84484; 84550; 85025; 85379; 85610; 85730; 86140; 86738; 87338; 93005; 93970; 96374; 96375; 97110-GP; 97116-GP; 97161-GP; 97530-GP; 99285; A9270-GY; J0456; J0696; J1650; J1940; J3490; J7050; Q9967

== ENCOUNTER 2019-11-14 10:28 | Emergency (ER) | payer MEDICARE, BC ==
[2019-11-14 11:32] VITALS: PULSE 82
[2019-11-14] MEDS ORDERED: Heparin Sodium 5,000 Units/ML Vial IVPUSH SCH (12:00)
[2019-11-14] MEDS ORDERED: Heparin Sodium/D5W 25,000 UNITS/500 ML BAG IV SCH (12:00)
--- NOTE | 2019-11-14 12:02 | EDM.PDOC ---
ED HPI GENERAL MEDICAL PROBLEM - General Chief Complaint: Chest Pain Stated Complaint: chest pain Time Seen by Provider: 11/14/19 11:07 Source of Information: Reports: Patient History Limitations: Reports: No Limitations - History of Present Illness INITIAL COMMENTS - FREE TEXT/NARRATIVE: Pt with intermittent chest pain for past 10 days Pain is in left chest 5/10 at its worst 1-2/10 at other times Worse in the evenings Located in left chest Does not radiate No previous hx/o same No fever No cough No trauma Pt is diabetic - Related Data Allergies Allergy/AdvReac Type Severity Reaction Status Date / Time dutasteride [From Avodart] Allergy Unknown Cannot Verified 11/14/19 10:38 Remember Hglzggk-Eby-Rjr Reductase Allergy Muscle Verified 11/14/19 10:38 Inhibitor Weakness Home Meds: Home Meds Cinnamon Bark [Cinnamon] 500 mg PO DAILY 01/12/17 [History] Fenofibrate,Micronized [Fenofibrate] 134 mg PO BEDTIME 01/12/17 [History] Lisinopril 10 mg PO BEDTIME 01/12/17 [History] Cholecalciferol (Vitamin D3) [Vitamin D3] 1,000 unit PO DAILY 02/09/17 [History] Simvastatin 40 mg PO BEDTIME 02/09/17 [History] Aspirin 325 mg PO BEDTIME 09/17/18 [History] Cyanocobalamin (Vitamin B-12) [B-12] 2,500 mcg SL DAILY 09/17/18 [History] Fluticasone/Vilanterol [Breo Ellipta 100-25 MCG Inhalation Kit] 1 each IH DAILY 11/14/19 [History] Furosemide [Lasix] 40 mg PO DAILY 11/14/19 [History] Insulin Degludec [Tresiba Flextouch U-100] 18 unit SQ DAILY 11/14/19 [History] Magnesium 200 mg PO DAILY 11/14/19 [History] amLODIPine [Norvasc] 5 mg PO BEDTIME 11/14/19 [History] Past Medical History - Past Health History Medical/Surgical History: Denies Medical/Surgical History HEENT History: Reports: Allergic Rhinitis, Cataract, Impaired Vision, Macular Degeneration Other HEENT History: Patient wears glasses. 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 Dry eye syndrome. Left eye arterial thrombosis. Cardiovascular History: Reports: Afib, Arrhythmia, Cardiomyopathy, Heart Failure , Heart Murmur, High Cholesterol, Hypertension, PVD, Other (See Below) Other Cardiovascular History: 1st degree heart block, right bundle branch block , grade 2 diastolic dysfunction echocardiogram with additional moderate cardiomegaly, moderate aortic valve stenosis with mild aortic valve insufficiency by echocardiogram in 2018. Small pericardial effusion initially diagnosed on 01/05/18 with history of CHF. Dyslipidemia. Moderate bilateral carotid occlusive disease. History of intermittent brief atrial fibrillation PVCs with no anticoagulation therapy. Respiratory History: Reports: Bronchitis, Recurrent, Intubation, Previous Gastrointestinal History: Reports: Cholelithiasis, Diverticulosis, Gastritis, GERD, Helicobacter Pylori Other Gastrointestinal History: History of elevated liver function tests likely secondary to fatty infiltration of the liver on his dyslipidemia. Previously treated H. pylori infection in 2002. Mild splenomegaly. Mild colitis in 2002. Genitourinary History: Reports: BPH, Chronic Renal Insuffiency, Prostate Disorder, Renal Calculus, Retention, Urinary, Urinary Incontinence, Other (See Below) Other Genitourinary History: Recurrent bilateral urolithiasis with spontaneous passage with last left sided episode on 01/12/17. BPH with elevated PSAs with negative workup including serial prostate biopsies as below. Musculoskeletal History: Reports: Arthritis, Back Pain, Chronic, Gout, Neck Pain , Chronic, Osteoarthritis, Other (See Below) Other Musculoskeletal History: Hyperuricemia Neurological History: Reports: None Other Neuro History: blood clot in the left eye Psychiatric History: Reports: None Endocrine/Metabolic History: Reports: Diabetes, Type II, Obesity/BMI 30+, Vitamin D Deficiency, Other (See Below) Other Endocrine/Metabolic History: Hypomagnesemia. Hematologic History: Reports: B12 Deficiency, Other (See Below) Other Hematologic History: Erythrocytosis and thrombocytopenia. Polycythemia. Immunologic History: Reports: None Oncologic (Cancer) History: Reports: None Dermatologic History: Reports: Other (See Below) Other Dermatologic History: History of cervical second-degree benitez in early 2002. 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 - Past Surgical History Head Surgeries/Procedures: Reports: None HEENT Surgical History: Reports: Adenoidectomy, Tonsillectomy, Other (See Below) Other HEENT Surgeries/Procedures: Tonsillectomy and adenoidectomy at age 11. Cardiovascular Surgical History: Reports: None Respiratory Surgical History: Reports: None GI Surgical History: Reports: Cholecystectomy, Colonoscopy, EGD, Other (See Below) Other GI Surgeries/Procedures: Last EGD and colonoscopy on 02/09/17 with previous evaluation on 06/16/03. Laparoscopic cholecystectomy on 03/20/2000. Male Surgical History: Reports: Prostate Biopsy, TURP-Transurethral Resection of Prostate, Other (See Below) Other Male Surgeries/Procedures: TURP on 10/07/08. Negative prostate biopsies 3 initially on 10/31/01, then in 2003, and then on 09/17/08. Endocrine Surgical History: Reports: None Neurological Surgical History: Reports: Laminectomy, Lumbar Spine, Other (See Below) Other Neurological Surgeries/Procedures: Laminectomy of L3-4 in 2003. Musculoskeletal Surgical History: Reports: Arthroscopic Knee, Joint Replacement , Knee Replacement, Other (See Below) Other Musculoskeletal Surgeries/Procedures:: Total knee arthroplasty right- sided on 03/18/15. Oncologic Surgical History: Reports: None Dermatological Surgical History: Reports: Other (See Below) - Past Imaging History Past Imaging History: Reports: Cardiac Echo (Last echocardiogram on 01/15/18 with multiple previous evaluations including stress echocardiogram on 11/23/17 with ejection fraction of 65%.), Carotid US (11/26/09.), CAT Scan (CT scan of the chest on 08/30/14 and 06/04/14 with CTA of the chest on 10/07/09. CT scan of the abdomen and pelvis on 01/05/18, 06/04/14, 03/25/02, and 02/28/2000. CT of the head on 11/26/09.), HIDA Scan (02/04/2000.), MRI (MRI of the lumbar spine on and 01/12/15.), Stress Testing (Stress echocardiogram as above. Multiple previous negative cardiac stress test with last evaluation on 09/05/13.), Ultrasound (Soft tissue ultrasound of the left leg on 08/08/18 and 06/27/18. Ultrasound of the abdominal aorta on 11/03/17. Abdominal ultrasound on 03/02/99.) , Other (See Below) (IVP on 08/02/99) Social & Family History - Family History Cardiac: Reports: Bypass, CAD, Heart Failure, Hypertension, SC, Other (See Below ) Other Cardiac Family History: Father with fatal SC and CHF at age 75 in his 70s. Paternal uncles 2 with fatal MIs in their 60s. Another paternal uncle with known coronary artery disease. Brother with four-vessel CABG. Mother with fatal CHF at age 81. Mother and daughter with hypertension. Mother with dyslipidemia GI: Reports: Irritable Bowel Syndrome, Other (See Below) Other GI Family History: Mother with irritable bowel syndrome. : Reports: Renal Calculus, Other (See Below) Other Family History: Father and brother with urolithiasis. Psychiatric: Reports: Anxiety, Depression, Other (See Below) Other Psychiatric Family History: Mother with anxiety depression disorder. Paternal uncle with history of depression and alcohol abuse. Endocrine/Metabolic: Reports: Diabetes, type II, Other (See Below) Other Endocrine/Metabolic Family History: Mother with morbid obesity and diabetes mellitus. Oncologic: Reports: Bladder, Breast, Liver, Lung, Other (See Below) Other Oncologic Family History: Paternal uncle with fatal oral versus esophageal cancer likely secondary to tobacco use and his 70s. Maternal aunt with fatal breast cancer in her 70s. Paternal uncle with fatal lung cancer in his 70s with history of tobacco use. Paternal grandmother with fatal liver cancer in her 80s. Maternal aunt with fatal bladder cancer. - Tobacco Use Smoking Status *Q: Never Smoker Second Hand Smoke Exposure: No - Caffeine Use Caffeine Use: Reports: Soda Caffeine Use Comment: 1 each evening - Alcohol Use Days Per Week of Alcohol Use: 0 - Recreational Drug Use Recreational Drug Use: No - Living Situation & Occupation Living situation: Reports: (1961. 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.) ED ROS GENERAL - Review of Systems Review Of Systems: See Below HEENT: Reports: No Symptoms Respiratory: Reports: No Symptoms Cardiovascular: Reports: Chest Pain GI/Abdominal: Reports: No Symptoms Musculoskeletal: Reports: No Symptoms ED EXAM, GENERAL - Physical Exam Exam: See Below Exam Limited By: No Limitations General Appearance: Alert, WD/WN, Mild Distress Throat/Mouth: Normal Oropharynx Neck: Supple Respiratory/Chest: Lungs Clear, Chest Non-Tender Cardiovascular: Regular Rate, Rhythm GI/Abdominal: Soft, Non-Tender Extremities: No Pedal Edema EKG INTERPRETATION Rhythm: NSR Course - Vital Signs Last Recorded V/S: Last Vital Signs Temp 98 F 11/14/19 10:35 Pulse 82 11/14/19 11:31 Resp 20 11/14/19 10:35 BP 139/61 11/14/19 11:31 Pulse Ox 94 L 11/14/19 10:35 - Orders/Labs/Meds Orders: Active Orders 24 hr Category Date Time Status EKG Documentation Completion [RC] ASDIRECTED Care 11/14/19 10:44 Active Chest 2V [CR] Stat Exams 11/14/19 10:43 Taken Heparin Sodium Med 11/14/19 12:00 Ordered 4,000 units IVPUSH .BOLUS Heparin Sodium/D5W [Heparin 25,000 Units in D5W 500 ML] Med 11/14/19 12:00 Ordered 25,000 units in 500 ml IV TITRATE Medication Orders Heparin Sodium (Porcine) (Heparin Sodium) 4,000 units IVPUSH .BOLUS QUANG Heparin Sodium/Dextrose (Heparin 25,000 Units In D5w 500 Ml) 25,000 units in 500 mls @ 22.371 mls/hr IV TITRATE QUANG; Protocol Labs: Laboratory Tests 11/14/19 11/14/19 Range/Units 10:50 10:50 WBC 8.1 (4.0-10.2) K/uL RBC 5.73 H (4.33-5.41) M/uL Hgb 17.8 H (13.1-16.8) g/dL Hct 51.7 H (39.0-49.0) % MCV 90.2 (84.0-98.0) fL MCH 31.1 (28.2-33.3) pg MCHC 34.4 (31.7-36.0) g/dL RDW 13.3 (11.2-14.1) % Plt Count 127 L (150-350) K/uL Neut % (Auto) 56.2 (45.0-80.0) % Lymph % (Auto) 36.9 (10.0-50.0) % [place] % (Auto) 5.3 (2.0-14.0) % Eos % (Auto) 1.1 (0.0-5.0) % Baso % (Auto) 0.5 (0.0-2.0) % Neut # (Auto) 4.58 (1.40-7.00) K/uL Lymph # (Auto) 3.00 (0.50-3.50) K/uL [place] # (Auto) 0.43 (0.00-1.00) K/uL Eos # (Auto) 0.09 (0.00-0.50) K/uL Baso # (Auto) 0.04 (0.00-0.20) K/uL Sodium 143 (136-145) mmol/L Potassium 3.9 (3.5-5.1) mmol/L Chloride 104 (98-107) mmol/L Carbon Dioxide 30.1 (21.0-32.0) mmol/L BUN 28 H (7-18) mg/dL Creatinine 1.27 H (0.51-1.17) mg/dL Est Cr Clr Drug Dosing 43.26 mL/min Estimated GFR (MDRD) 55 mL/min Glucose 150 H (74-106) mg/dL Calcium 9.2 (8.5-10.1) mg/dL Total Bilirubin 0.8 (0.2-1.0) mg/dL AST 34 (15-37) U/L ALT 35 (12-78) U/L Alkaline Phosphatase 46 (46-116) IU/L Troponin I 0.065 H* (0.000-0.056) ng/mL Total Protein 7.2 (6.4-8.2) g/dL Albumin 4.1 (3.4-5.0) g/dL Meds: Medications Generic Name Dose Route Start Last Admin Trade Name Freq PRN Reason Stop Dose Admin Heparin Sodium (Porcine) 4,000 units 11/14/19 12:00 Heparin Sodium IVPUSH .BOLUS [facility] Heparin Sodium/Dextrose 25,000 units in 500 mls @ 22.371 mls/hr 11/14/19 12: 00 Heparin 25,000 Units In D5w 500 Ml IV TITRATE QUANG Protocol 12 UNITS/KG/HR - Re-Assessments/Exams Free Text/Narrative Re-Assessment/Exam: 11/14/19 12:01 See lab, CXR and EKG Troponin elevated D/W Dr Mclaughlin On-call hospitalist [facility] Will accept in transfer Pt started on heparin per NSTEMI protocol Transfer via ambulance Departure - Departure Time of Disposition: 12:30 Disposition: DC/Tfer to Acute Hospital 02 Reason for Transfer *Q: Primary PCI Indicated Clinical Impression: NSTEMI (non-ST elevated myocardial infarction) Referrals: Christina Sexton NP [Primary Care Provider] - Sepsis Event Note - Evaluation Sepsis Screening Result: No Definite Risk - Focused Exam Vital Signs: Vital Signs Temp Pulse Resp BP Pulse Ox 11/14/19 11:31 82 139/61 11/14/19 10:35 98 F 77 20 154/63 H 94 L 11/14/19 10:29 98.0 F 84 20 154/63 H 94 L Date Exam was Performed: 11/14/19 Time Exam was Performed: 11:57 - My Orders Last 24 Hours: My Active Orders 11/14/19 10:43 Chest 2V [CR] Stat 11/14/19 10:44 EKG Documentation Completion [RC] ASDIRECTED 11/14/19 12:00 Heparin Sodium 4,000 units IVPUSH .BOLUS Heparin Sodium/D5W [Heparin 25,000 Units in D5W 500 ML] 25,000 units in 500 ml IV TITRATE - Assessment/Plan Last 24 Hours: My Active Orders 11/14/19 10:43 Chest 2V [CR] Stat 11/14/19 10:44 EKG Documentation Completion [RC] ASDIRECTED 11/14/19 12:00 Heparin Sodium 4,000 units IVPUSH .BOLUS Heparin Sodium/D5W [Heparin 25,000 Units in D5W 500 ML] 25,000 units in 500 ml IV TITRATE
[2019-11-14 12:44] VITALS: BP 143/67
[2019-11-14] MEDS ORDERED: Aspirin 81 MG Tab.Chew PO ONE (13:10)
== END 2019-11-14 13:25 ==
LOC: LL.ED 10:28
DX: I21.4 Non-ST elevation (NSTEMI) myocardial infarction (principal); I48.91 Unspecified atrial fibrillation; I11.0 Hypertensive heart disease with heart failure; I50.9 Heart failure, unspecified; E11.51 Type 2 diabetes mellitus with diabetic peripheral angiopathy without gangrene; E78.5 Hyperlipidemia, unspecified; K21.9 Gastro-esophageal reflux disease without esophagitis; E66.9 Obesity, unspecified; M19.90 Unspecified osteoarthritis, unspecified site; Z68.33 Body mass index [BMI] 33.0-33.9, adult; Z88.8 Allergy status to other drugs, medicaments and biological substances; Z79.899 Other long term (current) drug therapy; Z79.82 Long term (current) use of aspirin
CPT/HCPCS: 36415; 71046; 80053; 84484; 85025; 93005; 96365; 99285; A9270; J1644

== ENCOUNTER 2020-01-30 07:01 | Emergency (ER) | payer MEDICARE, BC ==
--- NOTE | 2020-01-30 07:47 | EDM.PDOC ---
ED HPI GENERAL MEDICAL PROBLEM - General Chief Complaint: Upper Extremity Injury/Pain Stated Complaint: left arm pain Time Seen by Provider: 01/30/20 07:36 Source of Information: Reports: Patient History Limitations: Reports: No Limitations - History of Present Illness INITIAL COMMENTS - FREE TEXT/NARRATIVE: Patient comes in to be seen for 4 night history of left arm pain. Pain runs from elbow down to top of left hand. Repositioning helps a bit but does not get rid of the pain. No recent injuries to the arm but two years ago did have significant soft tissue injury from falling into window well. Has been doing a lot of projects around the house recently/physically active and using the arm. Reports some numbness in forearm and hand when pain is present. Has not had this issue before. Mild left neck discomfort. No weakness. No other acute changes reported. Hx of stent in October. He was worried that this could be cardiac related. He denies chest pain/discomfort/palpitations/SOB/diaphoresis. Has no daytime episodes of the left forearm issues. - Related Data Allergies Allergy/AdvReac Type Severity Reaction Status Date / Time dutasteride [From Avodart] Allergy Unknown Cannot Verified 01/30/20 07:30 Remember Takbocf-Aol-Kht Reductase Allergy Muscle Verified 01/30/20 07:30 Inhibitor Weakness Home Meds: Home Meds Aspirin [Adult Aspirin Regimen] 81 mg PO DAILY 01/30/20 [History] Cholecalciferol (Vitamin D3) [Vitamin D3] 1 tab PO DAILY 01/30/20 [History] Cyanocobalamin (Vitamin B-12) [B-12 Dots] 1 tab PO DAILY 01/30/20 [History] Fluticasone/Vilanterol [Breo Ellipta 200-25 MCG Inhalation Kit] 1 puff INH DAILY 01/30/20 [History] Furosemide 1 tab PO DAILY 01/30/20 [History] Insulin Degludec [Tresiba] 18 units SQ BEDTIME 01/30/20 [History] Magnesium Oxide 250 mg PO DAILY 01/30/20 [History] Nitroglycerin 0.3 mg SL ASDIRECTED PRN #20 tab.subl 01/30/20 [Rx] Simvastatin 40 mg PO DAILY 01/30/20 [History] Ticagrelor [Brilinta] 1 tab PO BID 01/30/20 [History] atenoloL [Atenolol] 1 tab PO DAILY 01/30/20 [History] lisinopriL [Prinivil] 1 tab PO BEDTIME 01/30/20 [History] Past Medical History HEENT History: Reports: Allergic Rhinitis, Cataract, Impaired Vision, Macular Degeneration Other HEENT History: Patient wears glasses. 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 Dry eye syndrome. Left eye arterial thrombosis. Cardiovascular History: Reports: Afib, Arrhythmia, Cardiomyopathy, Heart Failure , Heart Murmur, High Cholesterol, Hypertension, PVD, Other (See Below) Other Cardiovascular History: 1st degree heart block, right bundle branch block , grade 2 diastolic dysfunction echocardiogram with additional moderate cardiomegaly, moderate aortic valve stenosis with mild aortic valve insufficiency by echocardiogram in 2018. Small pericardial effusion initially diagnosed on 01/05/18 with history of CHF. Dyslipidemia. Moderate bilateral carotid occlusive disease. History of intermittent brief atrial fibrillation PVCs with no anticoagulation therapy. Respiratory History: Reports: Bronchitis, Recurrent, Intubation, Previous Gastrointestinal History: Reports: Cholelithiasis, Diverticulosis, Gastritis, GERD, Helicobacter Pylori Other Gastrointestinal History: History of elevated liver function tests likely secondary to fatty infiltration of the liver on his dyslipidemia. Previously treated H. pylori infection in 2002. Mild splenomegaly. Mild colitis in 2002. Genitourinary History: Reports: BPH, Chronic Renal Insuffiency, Prostate Disorder, Renal Calculus, Retention, Urinary, Urinary Incontinence, Other (See Below) Other Genitourinary History: Recurrent bilateral urolithiasis with spontaneous passage with last left sided episode on 01/12/17. BPH with elevated PSAs with negative workup including serial prostate biopsies as below. Musculoskeletal History: Reports: Arthritis, Back Pain, Chronic, Gout, Neck Pain , Chronic, Osteoarthritis, Other (See Below) Other Musculoskeletal History: Hyperuricemia Neurological History: Reports: None Other Neuro History: blood clot in the left eye Psychiatric History: Reports: None Endocrine/Metabolic History: Reports: Diabetes, Type II, Obesity/BMI 30+, Vitamin D Deficiency, Other (See Below) Other Endocrine/Metabolic History: Hypomagnesemia. Hematologic History: Reports: B12 Deficiency, Other (See Below) Other Hematologic History: Erythrocytosis and thrombocytopenia. Polycythemia. Immunologic History: Reports: None Oncologic (Cancer) History: Reports: None Dermatologic History: Reports: Other (See Below) Other Dermatologic History: History of cervical second-degree benietz in early 2002. 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 - Past Surgical History Head Surgeries/Procedures: Reports: None HEENT Surgical History: Reports: Adenoidectomy, Tonsillectomy, Other (See Below) Other HEENT Surgeries/Procedures: Tonsillectomy and adenoidectomy at age 11. Cardiovascular Surgical History: Reports: None Respiratory Surgical History: Reports: None GI Surgical History: Reports: Cholecystectomy, Colonoscopy, EGD, Other (See Below) Other GI Surgeries/Procedures: Last EGD and colonoscopy on 02/09/17 with previous evaluation on 06/16/03. Laparoscopic cholecystectomy on 03/20/2000. Male Surgical History: Reports: Prostate Biopsy, TURP-Transurethral Resection of Prostate, Other (See Below) Other Male Surgeries/Procedures: TURP on 10/07/08. Negative prostate biopsies 3 initially on 10/31/01, then in 2003, and then on 09/17/08. Endocrine Surgical History: Reports: None Neurological Surgical History: Reports: Laminectomy, Lumbar Spine, Other (See Below) Other Neurological Surgeries/Procedures: Laminectomy of L3-4 in 2003. Musculoskeletal Surgical History: Reports: Arthroscopic Knee, Joint Replacement , Knee Replacement, Other (See Below) Other Musculoskeletal Surgeries/Procedures:: Total knee arthroplasty right- sided on 03/18/15. Oncologic Surgical History: Reports: None Dermatological Surgical History: Reports: Other (See Below) - Past Imaging History Past Imaging History: Reports: Cardiac Echo (Last echocardiogram on 01/15/18 with multiple previous evaluations including stress echocardiogram on 11/23/17 with ejection fraction of 65%.), Carotid US (11/26/09.), CAT Scan (CT scan of the chest on 08/30/14 and 06/04/14 with CTA of the chest on 10/07/09. CT scan of the abdomen and pelvis on 01/05/18, 06/04/14, 03/25/02, and 02/28/2000. CT of the head on 11/26/09.), HIDA Scan (02/04/2000.), MRI (MRI of the lumbar spine on and 01/12/15.), Stress Testing (Stress echocardiogram as above. Multiple previous negative cardiac stress test with last evaluation on 09/05/13.), Ultrasound (Soft tissue ultrasound of the left leg on 08/08/18 and 06/27/18. Ultrasound of the abdominal aorta on 11/03/17. Abdominal ultrasound on 03/02/99.) , Other (See Below) (IVP on 08/02/99) Social & Family History - Family History Cardiac: Reports: Bypass, CAD, Heart Failure, Hypertension, NC, Other (See Below ) Other Cardiac Family History: Father with fatal NC and CHF at age 75 in his 70s. Paternal uncles 2 with fatal MIs in their 60s. Another paternal uncle with known coronary artery disease. Brother with four-vessel CABG. Mother with fatal CHF at age 81. Mother and daughter with hypertension. Mother with dyslipidemia GI: Reports: Irritable Bowel Syndrome, Other (See Below) Other GI Family History: Mother with irritable bowel syndrome. : Reports: Renal Calculus, Other (See Below) Other Family History: Father and brother with urolithiasis. Psychiatric: Reports: Anxiety, Depression, Other (See Below) Other Psychiatric Family History: Mother with anxiety depression disorder. Paternal uncle with history of depression and alcohol abuse. Endocrine/Metabolic: Reports: Diabetes, type II, Other (See Below) Other Endocrine/Metabolic Family History: Mother with morbid obesity and diabetes mellitus. Oncologic: Reports: Bladder, Breast, Liver, Lung, Other (See Below) Other Oncologic Family History: Paternal uncle with fatal oral versus esophageal cancer likely secondary to tobacco use and his 70s. Maternal aunt with fatal breast cancer in her 70s. Paternal uncle with fatal lung cancer in his 70s with history of tobacco use. Paternal grandmother with fatal liver cancer in her 80s. Maternal aunt with fatal bladder cancer. - Tobacco Use Smoking Status *Q: Never Smoker - Caffeine Use Caffeine Use: Reports: Soda Caffeine Use Comment: 1 each evening - Alcohol Use Alcohol Use History: Yes Alcohol Use Frequency: Rarely - Recreational Drug Use Recreational Drug Use: No Drug Use in Last 12 Months: No - Living Situation & Occupation Living situation: Reports: (1961. 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 Denies: Joint Swelling Skin: Reports: Other (small laceration forehead) Neurological: Reports: Paresthesia (left forearm and hand) Psychiatric: Reports: No Symptoms ED EXAM, GENERAL - Physical Exam Exam: See Below Exam Limited By: No Limitations General Appearance: Alert, WD/WN, No Apparent Distress Eye Exam: Bilateral Eye: EOMI, PERRL Ears: Hearing Grossly Normal Nose: No: Nasal Deformity, Nasal Swelling, Nasal Drainage Throat/Mouth: Normal Lips, Normal Voice, No Airway Compromise Head: Atraumatic, Normocephalic Neck: Supple, Full Range of Motion, Tender Lateral (mild, left soft tissue) Respiratory/Chest: No Respiratory Distress, Lungs Clear, Normal Breath Sounds, No Accessory Muscle Use Cardiovascular: Normal Peripheral Pulses, Regular Rate, Rhythm, No Murmur GI/Abdominal: Soft, Non-Tender (Male) Exam: Deferred Rectal (Males) Exam: Deferred Back Exam: Normal Inspection. No: CVA Tenderness (L), CVA Tenderness (R), Muscle Spasm, Paraspinal Tenderness, Vertebral Tenderness Extremities: Normal Inspection, Normal Range of Motion, Non-Tender, Normal Capillary Refill Neurological: Alert, Oriented, Normal Cognition, No Motor/Sensory Deficits Psychiatric: Normal Affect, Normal Mood Skin Exam: Warm, Dry, Intact, Normal Color EKG INTERPRETATION EKG Date: 01/30/20 Time: 07:11 Rhythm: Other (1st degree AV block) Rate (Beats/Min): 60 [place]: Normal P-Wave: Present QRS: Other (incomplete RBBB) ST-T: Normal QT: Normal EKG Interpretation Comments: PVCs/1st degree block noted today. Not present on today's EKG but patient has history of these previously. Course - Vital Signs Last Recorded V/S: Last Vital Signs Temp 36.4 C 01/30/20 07:05 Pulse 61 01/30/20 07:53 Resp 16 01/30/20 07:05 BP 118/48 L 01/30/20 07:53 Pulse Ox 95 01/30/20 07:05 - Orders/Labs/Meds Orders: Active Orders 24 hr Category Date Time Status EKG Documentation Completion [RC] ASDIRECTED Care 01/30/20 07:11 Active Labs: Laboratory Tests 01/30/20 01/30/20 Range/Units 07:20 07:20 WBC 8.1 (4.0-10.2) K/uL RBC 5.38 (4.33-5.41) M/uL Hgb 16.8 (13.1-16.8) g/dL Hct 49.0 (39.0-49.0) % MCV 91.1 (84.0-98.0) fL MCH 31.2 (28.2-33.3) pg MCHC 34.3 (31.7-36.0) g/dL RDW 13.2 (11.2-14.1) % Plt Count 107 L (150-350) K/uL Neut % (Auto) 53.1 (45.0-80.0) % Lymph % (Auto) 38.7 (10.0-50.0) % [place] % (Auto) 6.8 (2.0-14.0) % Eos % (Auto) 1.2 (0.0-5.0) % Baso % (Auto) 0.2 (0.0-2.0) % Neut # (Auto) 4.28 (1.40-7.00) K/uL Lymph # (Auto) 3.13 (0.50-3.50) K/uL [place] # (Auto) 0.55 (0.00-1.00) K/uL Eos # (Auto) 0.10 (0.00-0.50) K/uL Baso # (Auto) 0.02 (0.00-0.20) K/uL Sodium 138 (136-145) mmol/L Potassium 3.6 (3.5-5.1) mmol/L Chloride 102 (98-107) mmol/L Carbon Dioxide 27.8 (21.0-32.0) mmol/L BUN 20 H (7-18) mg/dL Creatinine 1.06 (0.51-1.17) mg/dL Est Cr Clr Drug Dosing TNP Estimated GFR (MDRD) > 60 mL/min Glucose 178 H (74-106) mg/dL Calcium 8.3 L (8.5-10.1) mg/dL Magnesium 1.8 (1.8-2.4) mg/dL Total Bilirubin 0.6 (0.2-1.0) mg/dL AST 33 (15-37) U/L ALT 27 (12-78) U/L Alkaline Phosphatase 71 (46-116) IU/L Troponin I 0.054 (0.000-0.056) ng/mL Total Protein 6.6 (6.4-8.2) g/dL Albumin 3.4 (3.4-5.0) g/dL - Re-Assessments/Exams Free Text/Narrative Re-Assessment/Exam: 01/30/20 09:01 Based on patient's symptoms, musculoskeletal cause is suggested, such as a pinched nerve. Given the cardiac history, labs including Troponin were drawn. EKG showed no acute ST changes suggestive of ischemia. Labs overall unremarkable. Troponin within normal levels. Plan at this time is to have patient continue to observe for changes. He was advised to take it easy and avoid heavy lifting/overhead work but he said that he needed to work on a home project and would be unable to comply. He is aware that this will continue to exacerbate the left arm complaint if it is due to overuse. Symptoms suggestive of cardiac ischemia/angina were reviewed. He was given an Rx for Nitro to use if pain returns to see if Nitro has any impact on his symptoms. He said he was not certain if he would pick that up. An appointment for him to follow up tomorrow at the [facility] was made so that he can get rechecked and get a second lab draw. He was not interested in observation/serial troponins when that option was discussed. Patient is comfortable with plan. To return to ER if any worsening symptoms noted. Departure - Departure Time of Disposition: 08:07 Disposition: Home, Self-Care 01 Condition: Good Clinical Impression: Arm pain Qualifiers: Laterality: left Qualified Code(s): M79.602 - Pain in left arm - Discharge Information *PRESCRIPTION DRUG MONITORING PROGRAM REVIEWED*: Not Applicable *COPY OF PRESCRIPTION DRUG MONITORING REPORT IN PATIENT SHAYNA: Not Applicable Prescriptions: Nitroglycerin 0.3 mg SL ASDIRECTED PRN #20 tab.subl PRN Reason: Chest Pain Instructions: Nitroglycerin sublingual tablets Referrals: Christina Sexton NP [Primary Care Provider] - Forms: ED Department Discharge Additional Instructions: See how the pain is over the next few days. Avoid heavy lifting/overhead work. Take it easy today. You may also try to sleep with a wrist brace as sometimes wrist pain can extend to the elbow. OK to try Tylenol and CBD oil. Avoid taking Ibuprofen and Aleve frequently as they can be hard on the kidneys. See how discomfort is tonight. Watch for any new symptoms such as nausea/sweating/shortness of breath. Follow up tomorrow at clinic for recheck and new labs. Follow up in ER if you have sudden worsening problems/chest pain You were given a small number of nitroglycerin tabs. OK to take one tab if you experience the pain and see if it makes any difference. If it does then this could be cardiac related and will need further exploration by Cardiology. The maximum Nitro you can take is one tab under your tongue once every 5 minutes until a maximum of 3 tabs has been taken. Do not take any more than that. Sepsis Event Note - Evaluation Sepsis Screening Result: No Definite Risk - Focused Exam Vital Signs: Vital Signs Temp Pulse Resp BP Pulse Ox 01/30/20 07:53 61 118/48 L 01/30/20 07:05 36.4 C 63 16 153/53 H 95 Date Exam was Performed: 01/30/20 Time Exam was Performed: 09:00 - My Orders Last 24 Hours: My Active Orders 01/30/20 07:11 EKG Documentation Completion [RC] ASDIRECTED - Assessment/Plan Last 24 Hours: My Active Orders 01/30/20 07:11 EKG Documentation Completion [RC] ASDIRECTED
[2020-01-30 07:49] LABS: CHLORIDE,CL 102 mmol/L (98-107); SODIUM,NA 138 mmol/L (136-145)
[2020-01-30 07:54] VITALS: BP 118/48; PULSE 61
== END 2020-01-30 08:48 | disposition home or self-care (01) ==
LOC: LL.ED 07:01
DX: M79.602 Pain in left arm (principal); I48.91 Unspecified atrial fibrillation; I13.0 Hypertensive heart and chronic kidney disease with heart failure and stage 1 through stage 4 chronic kidney disease, or unspecified chronic kidney disease; I50.9 Heart failure, unspecified; N18.9 Chronic kidney disease, unspecified; E78.00 Pure hypercholesterolemia, unspecified; M10.9 Gout, unspecified; E66.9 Obesity, unspecified; E11.22 Type 2 diabetes mellitus with diabetic chronic kidney disease; Z79.82 Long term (current) use of aspirin; Z79.4 Long term (current) use of insulin; Z79.899 Other long term (current) drug therapy; Z88.8 Allergy status to other drugs, medicaments and biological substances
CPT/HCPCS: 36415; 80053; 83735; 84484; 85025; 93005; 99283-25

== ENCOUNTER 2020-04-03 13:57 | Emergency (ER) | payer MEDICARE, BC ==
[2020-04-03] MEDS ORDERED: Famotidine 20 MG/2 ML SDV IVPUSH ONE (14:01)
--- NOTE | 2020-04-03 14:01 | EDM.PDOC ---
ED HPI GENERAL MEDICAL PROBLEM - General Chief Complaint: Chest Pain Stated Complaint: chest discomfort Time Seen by Provider: 04/03/20 14:00 Source of Information: Reports: Patient, Old Records ([facility] chart/EMR), Other ([facility]) History Limitations: Reports: No Limitations - History of Present Illness INITIAL COMMENTS - FREE TEXT/NARRATIVE: The patient drove himself to the emergency room via private automobile for evaluation of chronic somewhat sharp 26/10 left-sided chest pain with no history of injury, radiation of his chest discomfort, etc. and pain affected by movement, including bending, etc.. The patient denies any chest pressure, heart flutter, dizziness, orthostasis, orthopnea, diaphoresis, paresthesias, recent decreased exercise tolerance, or any other anginal-type symptoms. No recent history of abdominal pain, heartburn, nausea, diarrhea, melena, gross hematochezia, or any food intolerance, including fatty foods, etc.. He denies any gross hematuria, colic, or other UTI symptoms. The patient also denies any recent fever, cough, wheezing, dyspnea, etc.. Onset: Gradual Onset Date: 04/01/20 Duration: Constant Location: Reports: Chest. Denies: Head, Face, Neck, Abdomen, Back, Upper Extremity, Left, Upper Extremity, Right, Radiates to Quality: Reports: Ache Severity: Moderate Improves with: Reports: None Worsens with: Reports: Movement Context: Reports: Other (As above). Denies: Sick Contact, Trauma Associated Symptoms: Reports: Chest Pain. 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 (see below) (None) Middle Chest Pain Score (Numeric/FACES): 2 - Related Data Allergies Allergy/AdvReac Type Severity Reaction Status Date / Time dutasteride [From Avodart] Allergy Unknown Cannot Verified 04/03/20 14:41 Remember Qqunjef-[id number]-Rzb Reductase Allergy Muscle Verified 04/03/20 14:41 Inhibitor Weakness Home Meds: Home Meds Aspirin [Adult Aspirin Regimen] 81 mg PO DAILY 01/30/20 [History] Cholecalciferol (Vitamin D3) [Vitamin D3] 1 tab PO DAILY 01/30/20 [History] Cyanocobalamin (Vitamin B-12) [B-12 Dots] 1 tab PO DAILY 01/30/20 [History] Fluticasone/Vilanterol [Breo Ellipta 200-25 MCG Inhalation Kit] 1 puff INH DAILY 01/30/20 [History] Furosemide 1 tab PO DAILY 01/30/20 [History] Magnesium Oxide 250 mg PO DAILY 01/30/20 [History] Simvastatin 40 mg PO DAILY 01/30/20 [History] Ticagrelor [Brilinta] 1 tab PO BID 01/30/20 [History] atenoloL [Atenolol] 1 tab PO DAILY 01/30/20 [History] lisinopriL [Prinivil] 1 tab PO BEDTIME 01/30/20 [History] Insulin Degludec [Tresiba] 18 unit SUBCUT BEDTIME 04/03/20 [History] Past Medical History HEENT History: Reports: Allergic Rhinitis, Cataract, Impaired Vision, Macular Degeneration. Denies: Glaucoma, Hard of Hearing, Otitis Media, Retinal Detachment Other HEENT History: Patient wears glasses. 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 Dry eye syndrome. Left eye arterial thrombosis. Cardiovascular History: Reports: Afib, Arrhythmia, CAD, Cardiomyopathy, Heart Failure, Heart Murmur, High Cholesterol, Hypertension, CT, PTCA, PVD, Stents, Other (See Below). Denies: Aneurysm, Blood Clots/VTE/DVT, Pacemaker, Syncope Other Cardiovascular History: Non-STEMI on 11/14/19 with PTCA/stent as below for 80% stenosis of the proximal left circumflex coronary artery with 30% stenosis of the right coronary artery. 1st degree heart block, right bundle branch block, grade 2 diastolic dysfunction echocardiogram with additional moderate cardiomegaly, moderate aortic valve stenosis with mild aortic valve insufficiency by echocardiogram since 2018. Small pericardial effusion initially diagnosed on 01/05/18 with history of CHF. Dyslipidemia. Moderate bilateral carotid occlusive disease. History of intermittent brief atrial fibr illation PVCs with no anticoagulation therapy. Chronic and/or. recurrent d- dimer elevation with negative workup as below. Respiratory History: Reports: Bronchitis, Recurrent, Intubation, Previous, Sleep Apnea, Other (See Below). Denies: Asthma, COPD, Intubation, Difficult, PE, TB Other Respiratory History: Patient not unable to tolerate CPAP. Gastrointestinal History: Reports: Cholelithiasis, Diverticulosis, Fatty Liver, Gastritis, GERD, Helicobacter Pylori. Denies: Celiac Disease, Chronic Constipation, Chronic Diarrhea, Colon Polyp, Fecal Incontinence, GI Bleed, Hepatitis, Inflammatory Bowel Disease, Irritable Bowel Syndrome, Jaundice, PUD Other Gastrointestinal History: History of elevated liver function tests likely secondary to fatty infiltration of the liver on his dyslipidemia. Previously treated H. pylori infection in 2002. Mild splenomegaly. Mild colitis in 2002. Genitourinary History: Reports: BPH, Chronic Renal Insuffiency, Diabetic Nephropathy, Prostate Disorder, Renal Calculus, Retention, Urinary, Urinary Incontinence, Other (See Below). Denies: Acute Renal Failure, STD, UTI, Recurrent Other Genitourinary History: Recurrent bilateral urolithiasis with spontaneous passage with last left sided episode on 01/12/17. BPH with elevated PSAs with negative workup including serial prostate biopsies as below. Musculoskeletal History: Reports: Arthritis, Back Pain, Chronic, Gout, Neck Pain, Chronic, Osteoarthritis, Other (See Below). Denies: Fracture, RA, SLE Other Musculoskeletal History: Hyperuricemia Neurological History: Reports: Neuropathy, Diabetic, Neuropathy, Peripheral. Denies: None, Cerebral Aneurysms, Concussion, CVA, Headaches, Chronic, Head Trauma, Migraines, MS, Parkinson's, Seizure, TIA Psychiatric History: Reports: None. Denies: Abuse, Victim of, ADD, ADHD, Addiction, Anxiety, Depression, Psych Hospitalization(s), Psychosis, PTSD, Suicide Attempt, Suicidal Ideation Endocrine/Metabolic History: Reports: Diabetes, Type II, Hypomagnesemia, Obesity/BMI 30+, Vitamin D Deficiency. Denies: Diabetes, Type I, Diabetes Mellitus, Type 3c, Hypothyroidism, IDDM Hematologic History: Reports: B12 Deficiency, Other (See Below). Denies: Anemia, Blood Transfusion(s), Iron Deficiency Other Hematologic History: Erythrocytosis and thrombocytopenia. Polycythemia. Immunologic History: Reports: None. Denies: AIDS, HIV, SLE Oncologic (Cancer) History: Reports: None. Denies: Basal Cell Carcinoma, Colon, Hodgkin's Lymphoma, Leukemia, Lymphoma, Malignant Melanoma, Non-Hodgkin's Lymphoma, Prostate, Squamous Cell Carcinoma Dermatologic History: Reports: Other (See Below). Denies: Eczema, Psoriasis Other Dermatologic History: History of cervical second-degree benitez in early 2002. - Infectious Disease History Infectious Disease History: Reports: Chicken Pox, Helicobacter Pylori, Measles, Mumps, Other (See Below). 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 - Past Surgical History Head Surgeries/Procedures: Reports: None HEENT Surgical History: Reports: Adenoidectomy, Oral Surgery, Tonsillectomy, Other (See Below). Denies: Cataract Surgery, Eye Surgery, Laser Surgery, LASIK, Myringotomy w Tube(s), Naso-Sinus Surgery Other HEENT Surgeries/Procedures: Tonsillectomy and adenoidectomy at age 11. Multiple teeth extractions. Cardiovascular Surgical History: Reports: None, Coronary Artery Stent, Percutaneous Transluminal Angioplasty, Other (See Below). Denies: Varicose Other Cardiovascular Surgeries/Procedures: PTCA/drug-eluting stent of the left circumflex coronary artery on 11/15/19. Respiratory Surgical History: Reports: None. Denies: Thoracentesis GI Surgical History: Reports: Cholecystectomy, Colonoscopy, EGD, Other (See Below). Denies: Appendectomy, Hernia, Abdominal, Hernia, Inguinal, Hernia Repair/Other, Polypectomy Other GI Surgeries/Procedures: Last EGD and colonoscopy on 02/09/17 with previous evaluation on 06/16/03. Laparoscopic cholecystectomy on 03/20/2000. Male Surgical History: Reports: Prostate Biopsy, TURP-Transurethral Resection of Prostate, Other (See Below). Denies: Circumcision, Vasectomy Other Male Surgeries/Procedures: TURP on 10/07/08. Negative prostate biopsies 3 initially on 10/31/01, then in 2003, and then on 09/17/08. Cystoscopy on 01/22/18. Endocrine Surgical History: Reports: None. Denies: Thyroid Biopsy Neurological Surgical History: Reports: Laminectomy, Lumbar Spine, Other (See Below). Denies: C-Spine, Discectomy, Sacral Spine, Spinal Fusion, Thoracic Spine, Vertebroplasty Other Neurological Surgeries/Procedures: Laminectomy of L3-4 in 2003. Musculoskeletal Surgical History: Reports: Arthroscopic Knee, Joint Replacement, Knee Replacement, Other (See Below). Denies: Carpal Tunnel, ORIF, Shoulder Replacement Other Musculoskeletal Surgeries/Procedures:: Right total knee arthroplasty revision on 12/25/18 with previous total knee arthroplasty right-sided on 03/18/15. Oncologic Surgical History: Reports: None Dermatological Surgical History: Reports: Other (See Below) Other Dermatological Surgeries/Procedures: Excision of pilonidal cyst in September 1959. - Past Imaging History Past Imaging History: Reports: Angiography (Catheterization on 11/14/19 with subsequent PTCA/stent on 11/15/19.), Bone Scan (Whole body bone scan on 11/19/18.), Cardiac Echo (Last echocardiogram on 11/15/19 ejection fraction of 60% and otherwise findings as above. Multiple previous evaluations including 10/19/18, 01/15/18 and stress echocardiogram on 11/23/17 with ejection fraction of 65%.), Carotid US (11/26/09.), CAT Scan (CT scan of the chest on 08/30/14 and 06/04/14 with negative CTA of the chest for PE on 09/17/18, 02/02/04, and 10/07/09. CT scan of the abdomen and pelvis on 01/05/18, 06/04/14, 03/25/02, and 02/28/2000. CT of the head on 11/26/09.), HIDA Scan (02/04/2000.), MRI (MRI of the lumbar spine on 06/25/18 and 01/12/15.), PFT (Last PFTs on 01/21/19.), Sleep Study (Last on 12/18/18), Stress Testing (Stress echocardiogram as above. False negative Lexiscan on 10/29/18 with previous multiple negative cardiac stress tests with last evaluation on 09/05/13.), Ultrasound (Bilateral renal ultrasound on 06/18/19 and 12/26/18. Soft tissue ultrasound of the left leg on 08/08/18 and 06/27/18. Ultrasound of the abdominal aorta on 11/03/17 and 06/17/14.. Abdominal ultrasound on 03/02/99.), Venous Doppler (Negative bilateral venous Doppler study on 09/19/18 and of the right leg on 02/06/19.), Other (See Below) (IVP on 08/02/99) Social & Family History - Family History Cardiac: Reports: Bypass, CAD, Heart Failure, Hypertension, CT, Other (See Below) Other Cardiac Family History: Father with fatal CT and CHF at age 75 in his 70s. Paternal uncles 2 with fatal MIs in their 60s. Another paternal uncle with known coronary artery disease. Brother with four-vessel CABG. Mother with fatal CHF at age 81. Mother and daughter with hypertension. Mother with dyslipidemia Respiratory: Reports: None. Denies: Asthma, COPD, PE, Pneumothorax, Sleep Apnea GI: Reports: Irritable Bowel Syndrome, Other (See Below) Other GI Family History: Mother with irritable bowel syndrome. : Reports: Renal Calculus, Other (See Below) Other Family History: Father and brother with urolithiasis. Psychiatric: Reports: Anxiety, Depression, Other (See Below) Other Psychiatric Family History: Mother with anxiety depression disorder. Paternal uncle with history of depression and alcohol abuse. Endocrine/Metabolic: Reports: Diabetes, type II, Other (See Below) Other Endocrine/Metabolic Family History: Mother with morbid obesity and diabetes mellitus. Oncologic: Reports: Bladder, Breast, Liver, Lung, Other (See Below) Other Oncologic Family History: Paternal uncle with fatal oral versus esophageal cancer likely secondary to tobacco use and his 70s. Maternal aunt with fatal breast cancer in her 70s. Paternal uncle with fatal lung cancer in his 70s with history of tobacco use. Paternal grandmother with fatal liver cancer in her 80s. Maternal aunt with fatal bladder cancer. - Tobacco Use Smoking Status *Q: Former Smoker Tobacco Use Within Last Twelve Months: No Other Tobacco Use Within Last Twelve Months: Very occasional cigar use when celebrating new infants, etc. Used Tobacco, but Quit: Yes Smoking Cessation Information Provided To Patient: No Second Hand Smoke Exposure: No Second Hand Smoke Education Provided: No - Caffeine Use Caffeine Use: Reports: Soda (3 sodas per week). Denies: Coffee, Energy Drinks, Tea - Alcohol Use Alcohol Use History: Yes Days Per Week of Alcohol Use: 0 Number of Drinks Per Day: 2 Number of Drinks Per Day Comment: Usually beer on special occasions. No previous DWIs, problems with alcohol abuse, etc. Total Drinks Per Week: 0 Alcohol Use in Last Twelve Months: Yes Alcohol Use Frequency: Rarely - Recreational Drug Use Recreational Drug Use: No Drug Use in Last 12 Months: No Recreational Drug Type: Denies: Amphetamines (Speed), Cocaine, Heroin, Inhalants (Glues, Solvents, Aerosols), LSD (Acid), Marijuana/Hashish, Methamphetamine, Morphine, Oxycodone - Living Situation & Occupation Living situation: Reports: (1961. 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 ED EXAM, GENERAL - Physical Exam Exam: See Below Exam Limited By: No Limitations General Appearance: Alert, WD/WN, No Apparent Distress, Anxious (Mild) Eye Exam: Bilateral Eye: EOMI, Normal Inspection, PERRL Ears: Normal External Exam, Normal Canal, Hearing Grossly Normal, Normal TMs Nose: Normal Inspection, Normal Mucosa, No Blood Throat/Mouth: Normal Inspection, Normal Lips, Normal Teeth (Multiple missing teeth), Normal Gums, Normal Oropharynx, Normal Voice, No Airway Compromise. No: Dysphagia, Perioral Cyanosis Head: Atraumatic, Normocephalic. No: Facial Swelling, Facial Tenderness Neck: Supple, Non-Tender, Full Range of Motion, Carotid Bruit (Mild bilateral carotid bruits versus transmitted heart sounds.). No: Lymphadenopathy (L), Lymphadenopathy (R), Thyromegaly Respiratory/Chest: No Respiratory Distress, Lungs Clear, Normal Breath Sounds, No Accessory Muscle Use, Chest Non-Tender. No: Pleural Rub, Retractions Cardiovascular: Normal Peripheral Pulses, Regular Rate, Rhythm, No Edema, No Gallop, No JVD, No Rub, Systolic Murmur (2/6 IVETH of the aortic and mitral valves.). No: Gallop/S3, Gallop/S4, Friction Rub Peripheral Pulses: 2+: Radial (L), Radial (R), Dorsalis Pedis (L), Dorsalis Pedis (R) GI/Abdominal: Normal Bowel Sounds, Soft, Non-Tender, No Organomegaly, No Distention, No Abnormal Bruit, No Mass, Other (Obese). No: Guarding (Male) Exam: Deferred Rectal (Males) Exam: Deferred Back Exam: Normal Inspection, Full Range of Motion. No: CVA Tenderness (L), CVA Tenderness (R), Muscle Spasm Extremities: Normal Inspection, Normal Range of Motion, Non-Tender, No Pedal Edema, Normal Capillary Refill. No: Jose Ramon's Sign Neurological: Alert, Oriented, CN II-XII Intact, Normal Cognition, Normal Gait, Normal Reflexes (Negative Babinski's), No Motor/Sensory Deficits Psychiatric: Anxious (Mild). No: Depressed Mood Skin Exam: No: Diaphoretic, Wound/Incision Lymphatic: No Adenopathy EKG INTERPRETATION EKG Date: 04/03/20 Time: 14:07 Rhythm: NSR Rate (Beats/Min): 65 [place]: Normal (Left) P-Wave: Present QRS: RBBB (0.10 seconds representing an incomplete right bundle branch block) ST-T: Normal (Stable T-wave inversion in lead 3 and V1) QT: Normal VA/PQ Interval: 0.21 seconds representing a stable first-degree feet lock with stable extreme poor R-wave progression in the anterior leads Comparison: No Change (On 01/30/20 with exception of resolution of previous PVCs) EKG Interpretation Comments: 1. No acute ischemic changes 2. Incomplete right bundle branch block 3. First degree AV block Course - Vital Signs Last Recorded V/S: Last Vital Signs Temp 36.2 C 04/03/20 16:17 Pulse 63 04/03/20 16:17 Resp 17 04/03/20 16:17 BP 133/55 L 04/03/20 16:17 Pulse Ox 94 L 04/03/20 16:17 Vital Signs - 24 hr 04/03/20 04/03/20 04/03/20 14:00 14:10 14:26 Temperature [ 36.4 C Temporal] Pulse, 67 66 64 Peripheral [ Pulse Oximetry] Respiratory 18 21 H 21 H Rate Blood Pressure 148/61 H 142/70 H 131/48 L [Right Upper Arm] O2 Sat by Pulse 94 L 93 L 91 L Oximetry 04/03/20 04/03/20 04/03/20 14:42 15:10 15:46 Temperature [ Temporal] Pulse, 64 60 63 Peripheral [ Pulse Oximetry] Respiratory 20 21 H 19 Rate Blood Pressure 117/48 L 121/55 L 146/70 H [Right Upper Arm] O2 Sat by Pulse 91 L 91 L 92 L Oximetry 04/03/20 16:17 Temperature [ 36.2 C Temporal] Pulse, 63 Peripheral [ Pulse Oximetry] Respiratory 17 Rate Blood Pressure 133/55 L [Right Upper Arm] O2 Sat by Pulse 94 L Oximetry - Orders/Labs/Meds Orders: Active Orders 24 hr Category Date Time Status Cardiac Monitoring [RC] . DIRECTED Care 04/03/20 14:01 Active EKG Documentation Completion [RC] ASDIRECTED Care 04/03/20 14:01 Active Oxygen Therapy, ED [RC] PRN Care 04/03/20 14:01 Active Peripheral IV Care [RC] . DIRECTED Care 04/03/20 14:01 Active Pulse Oximetry [RC] CONTINUOUS Care 04/03/20 14:01 Active Up With Assistance [RC] PFP Care 04/03/20 14:01 Active Vital Signs [RC] PFP Care 04/03/20 14:01 Active Nothing per Oral Now Diet [DIET] Diet 04/03/20 Breakfast Active Chest 1V Frontal [CR] Stat Exams 04/03/20 14:01 Taken Chest PE [Ang Chest] [CT] Stat Exams 04/03/20 15:00 Taken CULTURE URINE [RM] Routine Lab 04/03/20 14:22 Ordered Sodium Chloride 0.9% [Saline Flush] Med 04/03/20 14:01 Active 10 ml FLUSH ASDIRECTED PRN Obtain Past Medical Record [OM.PC] Urgent Oth 04/03/20 14:01 Active Peripheral IV Insertion Adult [OM.PC] Stat Oth 04/03/20 14:01 Ordered Resuscitation Status Stat Resus Stat 04/03/20 14:01 Ordered Medication Orders Sodium Chloride (Saline Flush) 10 ml FLUSH ASDIRECTED PRN PRN Reason: Keep Vein Open Last Admin: 04/03/20 15:18 Dose: 10 ml Documented by: Admin: 04/03/20 14:10 Dose: 10 ml Documented by: JUSTO Labs: Laboratory Tests 04/03/20 04/03/20 04/03/20 Range/Units 14:15 14:15 14:15 WBC 10.4 H (4.0-10.2) K/uL RBC 5.74 H (4.33-5.41) M/uL Hgb 17.4 H (13.1-16.8) g/dL Hct 51.6 H (39.0-49.0) % MCV 89.9 (84.0-98.0) fL MCH 30.3 (28.2-33.3) pg MCHC 33.7 (31.7-36.0) g/dL RDW 13.5 (11.2-14.1) % Plt Count 112 L (150-350) K/uL Neut % (Auto) 57.5 (45.0-80.0) % Lymph % (Auto) 34.7 (10.0-50.0) % Howard % (Auto) 6.5 (2.0-14.0) % Eos % (Auto) 1.1 (0.0-5.0) % Baso % (Auto) 0.2 (0.0-2.0) % Neut # (Auto) 5.98 (1.40-7.00) K/uL Lymph # (Auto) 3.60 H (0.50-3.50) K/uL Howard # (Auto) 0.67 (0.00-1.00) K/uL Eos # (Auto) 0.11 (0.00-0.50) K/uL Baso # (Auto) 0.02 (0.00-0.20) K/uL PT 10.0 (9.5-12.0) SEC INR 1.0 APTT 24.1 L (24.5-32.8) SEC D-Dimer, Quantitative 1210 H (0-400) ng/mL Sodium (136-145) mmol/L Potassium (3.5-5.1) mmol/L Chloride (98-107) mmol/L Carbon Dioxide (21.0-32.0) mmol/L BUN (7-18) mg/dL Creatinine (0.51-1.17) mg/dL Est Cr Clr Drug Dosing Estimated GFR (MDRD) mL/min Glucose (74-106) mg/dL Lactic Acid (0.4-2.0) mmol/L Uric Acid (2.6-7.2) mg/dL Calcium (8.5-10.1) mg/dL Magnesium (1.8-2.4) mg/dL Total Bilirubin (0.2-1.0) mg/dL AST (15-37) U/L ALT (12-78) U/L Alkaline Phosphatase (46-116) IU/L Creatine Kinase (26-308) U/L Creatine Kinase Index (0.0-2.5) % CK-MB (CK-2) (0.00-3.60) ng/mL Troponin I (0.000-0.056) ng/mL NT-Pro-B Natriuret Pep (0-125) pg/mL Total Protein (6.4-8.2) g/dL Albumin (3.4-5.0) g/dL TSH, Ultra Sensitive (0.358-3.740) mIU/mL Specimen Type Urine Color Urine Appearance Urine pH (5.0-9.0) Ur Specific White (1.005-1.030) Urine Protein (NEGATIVE) mg/dL Urine Glucose (UA) (NEGATIVE) mg/dL Urine Ketones (NEGATIVE) mg/dL Urine Occult Blood (NEGATIVE) Urine Nitrite (NEGATIVE) Urine Bilirubin (NEGATIVE) Urine Urobilinogen (0.2-1.0) E.U./dL Ur Leukocyte Esterase (NEGATIVE) Urine RBC /HPF Urine WBC /HPF Ur Epithelial Cells /LPF Urine Bacteria (NONE TO FEW) /HPF 04/03/20 04/03/20 04/03/20 Range/Units 14:15 14:15 15:45 WBC (4.0-10.2) K/uL RBC (4.33-5.41) M/uL Hgb (13.1-16.8) g/dL Hct (39.0-49.0) % MCV (84.0-98.0) fL MCH (28.2-33.3) pg MCHC (31.7-36.0) g/dL RDW (11.2-14.1) % Plt Count (150-350) K/uL Neut % (Auto) (45.0-80.0) % Lymph % (Auto) (10.0-50.0) % Howard % (Auto) (2.0-14.0) % Eos % (Auto) (0.0-5.0) % Baso % (Auto) (0.0-2.0) % Neut # (Auto) (1.40-7.00) K/uL Lymph # (Auto) (0.50-3.50) K/uL Howard # (Auto) (0.00-1.00) K/uL Eos # (Auto) (0.00-0.50) K/uL Baso # (Auto) (0.00-0.20) K/uL PT (9.5-12.0) SEC INR APTT (24.5-32.8) SEC D-Dimer, Quantitative (0-400) ng/mL Sodium 140 (136-145) mmol/L Potassium 4.0 (3.5-5.1) mmol/L Chloride 100 (98-107) mmol/L Carbon Dioxide 32.0 (21.0-32.0) mmol/L BUN 23 H (7-18) mg/dL Creatinine 1.26 H (0.51-1.17) mg/dL Est Cr Clr Drug Dosing TNP Estimated GFR (MDRD) 55 mL/min Glucose 193 H (74-106) mg/dL Lactic Acid 1.2 (0.4-2.0) mmol/L Uric Acid 14.1 H (2.6-7.2) mg/dL Calcium 9.1 (8.5-10.1) mg/dL Magnesium 1.8 (1.8-2.4) mg/dL Total Bilirubin 0.9 (0.2-1.0) mg/dL AST 33 (15-37) U/L ALT 34 (12-78) U/L Alkaline Phosphatase 67 (46-116) IU/L Creatine Kinase 71 (26-308) U/L Creatine Kinase Index 2.5 (0.0-2.5) % CK-MB (CK-2) 1.80 (0.00-3.60) ng/mL Troponin I 0.013 (0.000-0.056) ng/mL NT-Pro-B Natriuret Pep 769 H (0-125) pg/mL Total Protein 7.1 (6.4-8.2) g/dL Albumin 3.7 (3.4-5.0) g/dL TSH, Ultra Sensitive 1.443 (0.358-3.740) mIU/mL Specimen Type Urincc Urine Color Light yellow Urine Appearance Clear Urine pH 7.0 (5.0-9.0) Ur Specific White 1.020 (1.005-1.030) Urine Protein Negative (NEGATIVE) mg/dL Urine Glucose (UA) Negative (NEGATIVE) mg/dL Urine Ketones Negative (NEGATIVE) mg/dL Urine Occult Blood Negative (NEGATIVE) Urine Nitrite Negative (NEGATIVE) Urine Bilirubin Negative (NEGATIVE) Urine Urobilinogen 0.2 (0.2-1.0) E.U./dL Ur Leukocyte Esterase Negative (NEGATIVE) Urine RBC 0-5 /HPF Urine WBC 0-5 /HPF Ur Epithelial Cells Rare /LPF Urine Bacteria Not seen (NONE TO FEW) /HPF Meds: Medications Generic Name Dose Route Start Last Admin Trade Name Freq PRN Reason Stop Dose Admin Sodium Chloride 10 ml 04/03/20 14:01 04/03/20 15:18 Saline Flush FLUSH 10 ml ASDIRECTED PRN Administration Keep Vein Open Discontinued Medications Generic Name Dose Route Start Last Admin Trade Name Freq PRN Reason Stop Dose Admin Famotidine 40 mg 04/03/20 14:01 04/03/20 14:10 Pepcid IVPUSH 04/03/20 14:02 40 mg ONETIME ONE Administration Furosemide 40 mg 04/03/20 14:59 04/03/20 15:18 Lasix IVPUSH 04/03/20 15:00 40 mg NOW ONE Administration Iopamidol 100 ml 04/03/20 15:05 04/03/20 15:56 Isovue-370 (76%) IVPUSH 04/03/20 15:06 100 ml ONETIME ONE Administration Potassium Chloride 20 meq 04/03/20 14:59 04/03/20 15:18 Klor-Con M20 PO 04/03/20 15:00 20 meq ONETIME ONE Administration - Radiology Interpretation Free Text/Narrative:: hospital monitor showed normal sinus rhythm in the 60s with no ectopy or arr hythmia. Chest x-ray, verbal, shows somewhat poor inspiratory film with moderate COPD changes but no pulmonary infiltrates or pneumothorax. Moderate cardiomegaly with mild centralized CHF and/or pulmonary hypertension. Moderately elevated right hemidiaphragm. CTA of the chest is no evidence of PE with stable marked cardiomegaly and mild pericardial effusion. Incidental mildly increased abdominal lymphadenopathy Departure - Departure Time of Disposition: 16:35 Disposition: Home, Self-Care 01 Condition: Good Clinical Impression: Chest wall pain, CHF, Congestive heart failure, COPD (chronic obstructive pulmonary disease), Renal insufficiency, Peptic reflux disease, Diabetes mellitus, Hypertension, Hyperlipidemia, D-dimer, elevated, Coronary artery disease, First degree AV block, Right bundle branch block, PVCs (premature ventricular contractions), Hyperuricemia, Sleep apnea, Aortic valve stenosis Instructions: Chest Wall Pain, [id number] Referrals: Christina Sexton NP [Primary Care Provider] - Forms: ED Department Discharge Additional Instructions: 1. Followup with your regular provider in 5-7 days as directed for reevaluation and recommended repeat CBC, basic metabolic panel, uric acid level, BNP, troponin I, CK, CK-MB, cardiac index, and d-dimer. Bring these discharge instructions with you to that visit. 2. Discuss at the above follow-up visit with your regular provider arranging a low level cardiac stress test in this facility for admission into our cardiac rehabilitation program. 3. BenGay or equivalent, heating pad, and/or ice packs as directed. 4. Tylenol 650 mg by mouth every 4 hours and/or OTC ibuprofen 2-3 tabs by mouth every 6 hours with food as directed./needed. You may stagger these medications for 48-72 hours only, which essentially means that you are receiving a pain medication about every 2 hours. 5. Immediately after this visit verify that your cellular telephone's voicemail has been activated and is empty. Also verify that your home telephone's answering machine is operating properly and has space to receive messages. Note that it is sometimes necessary for us to be able to contact you at a later date to discuss your medical care. 6. Please remember that we are ALWAYS here for you and want to answer any questions you may have. Feel free to call the hospital any time and we call you back LIZETH. 7. Discuss your current diabetes and elevated home blood sugars with your regular provider at follow-up. Sepsis Event Note (ED) - Focused Exam Vital Signs: Vital Signs Temp Pulse Resp BP Pulse Ox 04/03/20 16:17 36.2 C 63 17 133/55 L 94 L 04/03/20 15:46 63 19 146/70 H 92 L 04/03/20 15:10 60 21 H 121/55 L 91 L 04/03/20 14:42 64 20 117/48 L 91 L 04/03/20 14:26 64 21 H 131/48 L 91 L 04/03/20 14:10 66 21 H 142/70 H 93 L 04/03/20 14:00 36.4 C 67 18 148/61 H 94 L - Problem List & Annotations (1) Chest wall pain SNOMED Code(s): 208771796 Code(s): R07.89 - OTHER CHEST PAIN Status: Acute Priority: High Current Visit: Yes Onset Date: ~04/01/20 Annotation/Comment:: No evidence of acute CT or exacerbation of his coronary artery disease. Possible pericardial effusion versus pleurisy components. Anxiety may also be a cofactor. Symptomatic relief as per discharge instructions. Close follow-up by regular provider as per discharge instructions. (2) CHF, Congestive heart failure SNOMED Code(s): 49568311 Code(s): I50.9 - HEART FAILURE, UNSPECIFIED Status: Acute Priority: High Current Visit: Yes Onset Date: 09/17/18 Annotation/Comment:: Mild BNP elevation likely secondary to his diabetic nephropathy and mild centralized CHF by today's chest x-ray. IV Lasix and oral potassium given in the emergency room with no further change in his medical therapy for now. No chest pain or anginal type symptoms. Close follow-up by his regular provider. Note stable small pericardial effusion by CTA of the chest today. Note recent echocardiogram on 11/15/19. (3) COPD (chronic obstructive pulmonary disease) SNOMED Code(s): 86634139 Code(s): J44.9 - CHRONIC OBSTRUCTIVE PULMONARY DISEASE, UNSPECIFIED Status: Acute Priority: Medium Current Visit: Yes Onset Date: 09/17/18 Annotation/Comment:: COPD by chest x-ray. Consider repeat PFTs on an outpatient basis. No recent fever or bronchitic type symptoms. Qualifiers: COPD type: emphysema Emphysema type: panlobular Qualified Code(s): J43.1 - Panlobular emphysema (4) Coronary artery disease SNOMED Code(s): 60884974 Code(s): I25.10 - ATHSCL HEART DISEASE OF [place] CORONARY ARTERY W/O ANG PCTRS Status: Chronic Priority: Medium Current Visit: Yes Onset Date: ~11/14/19 Annotation/Comment:: As above. secondary to the COVID-19 pandemic he has not yet started the cardiac rehabilitation program in our facility. He was encouraged to arrange this LIZETH through his regular provider. Qualifiers: Coronary Disease-Associated Artery/Lesion type: [place] artery [place] vs. transplanted heart: [place] heart Associated angina: without angina Qualified Code(s): I25.10 - Atherosclerotic heart disease of [place] coronary artery without angina pectoris (5) D-dimer, elevated SNOMED Code(s): 298130363 Code(s): R79.89 - OTHER SPECIFIED ABNORMAL FINDINGS OF BLOOD CHEMISTRY Status: Acute Priority: High Current Visit: Yes Onset Date: 09/18/18 Annotation/Comment:: Chronic d-dimer elevation with extensive previous negative workup, including today. No further evaluations needed at this time and/or in the future unless his clinical status changes significantly. This discussed with the patient today. (6) First degree AV block SNOMED Code(s): 070969285 Code(s): I44.0 - ATRIOVENTRICULAR BLOCK, FIRST DEGREE Status: Chronic Priority: Medium Current Visit: Yes Annotation/Comment:: Stable (7) Hyperuricemia SNOMED Code(s): 35508164 Code(s): E79.0 - HYPERURICEMIA W/O SIGNS OF INFLAM ARTHRIT AND TOPHACEOUS DIS Status: Chronic Priority: Medium Current Visit: Yes Annotation/Comment:: No recent gout attack despite Lasix therapy and elevated level today. Continue to observe closely by regular provider. (8) PVCs (premature ventricular contractions) SNOMED Code(s): 61994975 Code(s): I49.3 - VENTRICULAR PREMATURE DEPOLARIZATION Status: Chronic Priority: Medium Current Visit: Yes Annotation/Comment:: No arrhythmia today. (9) Renal insufficiency SNOMED Code(s): 451135467, 335667821 Code(s): N28.9 - DISORDER OF KIDNEY AND URETER, UNSPECIFIED Status: Acute Priority: Medium Current Visit: Yes Onset Date: 09/18/18 Annotation/Comment:: Diabetic nephropathy with continued close observation by his regular provider. (10) Diabetes mellitus SNOMED Code(s): 35235022 Code(s): E11.9 - TYPE 2 DIABETES MELLITUS WITHOUT COMPLICATIONS Status: Chronic Priority: Medium Current Visit: Yes Annotation/Comment:: His home blood sugars have been somewhat elevated in the recent weeks including average blood sugars in the 270s with Accu-Chek of 230 prior to arrival. Urine specimen will be sent for culture and sensitivity with no evidence of UTI today. Close follow-up by his regular provider including possible repeat glycosylated hemoglobin, etc. Qualifiers: Diabetes mellitus type: type 2 Diabetes mellitus [place] insulin use: without skilled nursing use Diabetes mellitus complication status: with kidney complications Diabetes mellitus complication detail: with chronic kidney disease Chronic kidney disease stage: stage 2 (mild) Qualified Code(s): E11.22 - Type 2 diabetes mellitus with diabetic chronic kidney disease; N18.2 - Chronic kidney disease, stage 2 (mild) (11) Hyperlipidemia SNOMED Code(s): 79771433 Code(s): E78.5 - HYPERLIPIDEMIA, UNSPECIFIED Status: Chronic Priority: Medium Current Visit: Yes Annotation/Comment:: Under therapy. Weight loss in moderation advisable. Qualifiers: Hyperlipidemia type: unspecified Qualified Code(s): E78.5 - Hyperlipidemia, unspecified (12) Hypertension SNOMED Code(s): 43400617 Code(s): I10 - ESSENTIAL (PRIMARY) HYPERTENSION Status: Chronic Priority: Medium Current Visit: Yes Annotation/Comment:: Blood Pressures under relatively good control for now. Continue to observe closely with medication adjustments depending on his clinical course. Qualifiers: Hypertension type: essential hypertension Qualified Code(s): I10 - Essential (primary) hypertension (13) Peptic reflux disease SNOMED Code(s): 986221984 Code(s): K21.9 - GASTRO-ESOPHAGEAL REFLUX DISEASE WITHOUT ESOPHAGITIS Status: Chronic Priority: Medium Current Visit: Yes Annotation/Comment:: High-dose IV Pepcid given in the emergency room as GI prophylaxis. No abdominal complaints and observe for now. Possible beginning diabetic gastroenteropathy. 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 Note recent echocardiogram on 11/15/19 as above. Qualifiers: Cardiac valve disease etiology: nonrheumatic Qualified Code(s): I35.0 - Nonrheumatic aortic (valve) stenosis (15) Sleep apnea SNOMED Code(s): 60625369 Code(s): G47.30 - SLEEP APNEA, UNSPECIFIED Status: Chronic Priority: Medium Current Visit: Yes Annotation/Comment:: He could not tolerate CPAP in the past. Importance of this therapy was extensively discussed with the patient today. Weight Loss in moderation is advisable. Qualifiers: Sleep apnea type: obstructive Qualified Code(s): G47.33 - Obstructive sleep apnea (adult) (pediatric) - Problem List Review Problem List Initiated/Reviewed/Updated: Yes - My Orders Last 24 Hours: My Active Orders 04/03/20 Breakfast Nothing per Oral Now Diet [DIET] 04/03/20 14:01 Cardiac Monitoring [RC] . DIRECTED EKG Documentation Completion [RC] ASDIRECTED Oxygen Therapy, ED [RC] PRN Peripheral IV Care [RC] . DIRECTED Pulse Oximetry [RC] CONTINUOUS Up With Assistance [RC] PFP Vital Signs [RC] PFP Chest 1V Frontal [CR] Stat Sodium Chloride 0.9% [Saline Flush] 10 ml FLUSH ASDIRECTED PRN Obtain Past Medical Record [OM.PC] Urgent Peripheral IV Insertion Adult [OM.PC] Stat Resuscitation Status Stat 04/03/20 14:22 CULTURE URINE [RM] Routine 04/03/20 15:00 Chest PE [Ang Chest] [CT] Stat - Assessment/Plan Last 24 Hours: My Active Orders 04/03/20 Breakfast Nothing per Oral Now Diet [DIET] 04/03/20 14:01 Cardiac Monitoring [RC] . DIRECTED EKG Documentation Completion [RC] ASDIRECTED Oxygen Therapy, ED [RC] PRN Peripheral IV Care [RC] . DIRECTED Pulse Oximetry [RC] CONTINUOUS Up With Assistance [RC] PFP Vital Signs [RC] PFP Chest 1V Frontal [CR] Stat Sodium Chloride 0.9% [Saline Flush] 10 ml FLUSH ASDIRECTED PRN Obtain Past Medical Record [OM.PC] Urgent Peripheral IV Insertion Adult [OM.PC] Stat Resuscitation Status Stat 04/03/20 14:22 CULTURE URINE [RM] Routine 04/03/20 15:00 Chest PE [Ang Chest] [CT] Stat Assessment:: As above Plan: As above. Extensive precautions were given to the patient, who is in agreement with the treatment plan. See Patient Instructions for further treatment and plan.
[2020-04-03] MEDS: Sodium Chloride 0.9% 10 ML Syringe FLUSH PRN ×2 (14:10→15:18)
[2020-04-03 14:30] LABS: PTT,PARTIAL THROMBOPLSTIN TIME 24.1 SEC (24.5-32.8)
[2020-04-03 14:43] LABS: CHLORIDE,CL 100 mmol/L (98-107); SODIUM,NA 140 mmol/L (136-145)
[2020-04-03] MEDS ORDERED: Potassium Chloride 20 MEQ Tab.ER PO ONE (14:59)
[2020-04-03] MEDS ORDERED: Furosemide 40 MG/4 ML VIAL IVPUSH ONE (14:59)
[2020-04-03] MEDS ORDERED: Iopamidol 755 Mg/ML 100 ML Bottle IVPUSH ONE (15:05)
[2020-04-03 16:50] VITALS: BP 133/55; PULSE 63
== END 2020-04-03 16:35 | disposition home or self-care (01) ==
LOC: LL.ED 13:57
DX: J44.9 Chronic obstructive pulmonary disease, unspecified (principal); I44.0 Atrioventricular block, first degree; I11.0 Hypertensive heart disease with heart failure; I50.9 Heart failure, unspecified; E78.5 Hyperlipidemia, unspecified; N28.9 Disorder of kidney and ureter, unspecified; E79.0 Hyperuricemia without signs of inflammatory arthritis and tophaceous disease; G47.30 Sleep apnea, unspecified; I35.0 Nonrheumatic aortic (valve) stenosis; I49.3 Ventricular premature depolarization; K21.9 Gastro-esophageal reflux disease without esophagitis; R79.1 Abnormal coagulation profile; I25.10 Atherosclerotic heart disease of native coronary artery without angina pectoris; I45.10 Unspecified right bundle-branch block; I48.91 Unspecified atrial fibrillation; I25.2 Old myocardial infarction; E11.42 Type 2 diabetes mellitus with diabetic polyneuropathy; E11.21 Type 2 diabetes mellitus with diabetic nephropathy; Z87.891 Personal history of nicotine dependence; Z79.82 Long term (current) use of aspirin; Z88.8 Allergy status to other drugs, medicaments and biological substances; Z79.4 Long term (current) use of insulin; Z79.899 Other long term (current) drug therapy
CPT/HCPCS: 36415; 71045; 71275; 80053; 81001; 82550; 82553; 83605; 83735; 83880; 84443; 84484; 84550; 85025; 85379; 85610; 85730; 87086; 93005; 96374; 96375; 99285-25; A9270-GY; J1940; J3490; Q9967

== ENCOUNTER 2020-09-06 12:28 | Emergency (ER) | payer MEDICARE, BC ==
[2020-09-06 12:47] VITALS: BP 139/58; PULSE 71
--- NOTE | 2020-09-06 13:04 | EDM.PDOC ---
ED HPI GENERAL MEDICAL PROBLEM - General Chief Complaint: Lower Extremity Injury/Pain Stated Complaint: Foot Pain Time Seen by Provider: 09/06/20 12:32 Source of Information: Reports: Patient History Limitations: Reports: No Limitations - History of Present Illness INITIAL COMMENTS - FREE TEXT/NARRATIVE: Patient comes to ER complaining of right outer ankle pain that started around a month ago. No significant spurs/changes noted on xray ordered by PCP. Pain has been worse the last few days. No fever/redness/swelling/skin breakdown. No history of injuries. 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 Was apparently on 5 day course of prednisone that didn't help. Cannot take NSAIDs due to some slowing of renal function. Has tried Ty lenol and topical CBD oil but no significant change. - Related Data Allergies Allergy/AdvReac Type Severity Reaction Status Date / Time dutasteride [From Avodart] Allergy Unknown Cannot Verified 09/06/20 12:37 Remember [id number]-Gwj-Agx Reductase Allergy Muscle Verified 09/06/20 12:37 Inhibitor Weakness Home Meds: Home Meds Aspirin [Adult Aspirin Regimen] 81 mg PO DAILY 01/30/20 [History] Cholecalciferol (Vitamin D3) [Vitamin D3] 1,000 unit PO DAILY 01/30/20 [History] Cyanocobalamin (Vitamin B-12) [B-12 Dots] 500 mcg PO DAILY 01/30/20 [History] Fluticasone/Vilanterol [Breo Ellipta 200-25 MCG Inhalation Kit] 1 puff INH DAILY 01/30/20 [History] Furosemide 40 mg PO DAILY 01/30/20 [History] Simvastatin 40 mg PO BEDTIME 01/30/20 [History] Ticagrelor [Brilinta] 90 mg PO BID 01/30/20 [History] atenoloL [Atenolol] 50 mg PO BEDTIME 01/30/20 [History] lisinopriL [Prinivil] 10 mg PO BEDTIME 01/30/20 [History] Insulin Degludec [Tresiba] 18 unit SUBCUT BEDTIME 04/03/20 [History] Past Medical History - Past Health History Medical/Surgical History: Denies Medical/Surgical History HEENT History: Reports: Allergic Rhinitis, Cataract, Impaired Vision, Macular Degeneration. Denies: Glaucoma, Hard of Hearing, Otitis Media, Retinal Detachment Other HEENT History: Patient wears glasses. 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 Dry eye syndrome. Left eye arterial thrombosis. Cardiovascular History: Reports: Afib, Arrhythmia, CAD, Cardiomyopathy, Heart Failure, Heart Murmur, High Cholesterol, Hypertension, ND, PTCA, PVD, Stents, Other (See Below). Denies: Aneurysm, Blood Clots/VTE/DVT, Pacemaker, Syncope Other Cardiovascular History: Non-STEMI on 11/14/19 with PTCA/stent as below for 80% stenosis of the proximal left circumflex coronary artery with 30% stenosis of the right coronary artery. 1st degree heart block, right bundle branch block, grade 2 diastolic dysfunction echocardiogram with additional moderate cardiomegaly, moderate aortic valve stenosis with mild aortic valve insufficiency by echocardiogram since 2018. Small pericardial effusion initially diagnosed on 01/05/18 with history of CHF. Dyslipidemia. Moderate bilateral carotid occlusive disease. History of intermittent brief atrial fibrillation PVCs with no anticoagulation therapy. Chronic and/or. recurrent d- dimer elevation with negative workup as below. Respiratory History: Reports: Bronchitis, Recurrent, Intubation, Previous, Sleep Apnea, Other (See Below). Denies: Asthma, COPD, Intubation, Difficult, PE, TB Other Respiratory History: Patient not unable to tolerate CPAP. Gastrointestinal History: Reports: Cholelithiasis, Diverticulosis, Fatty Liver, Gastritis, GERD, Helicobacter Pylori. Denies: Celiac Disease, Chronic Constipation, Chronic Diarrhea, Colon Polyp, Fecal Incontinence, GI Bleed, Hepatitis, Inflammatory Bowel Disease, Irritable Bowel Syndrome, Jaundice, PUD Other Gastrointestinal History: History of elevated liver function tests likely secondary to fatty infiltration of the liver on his dyslipidemia. Previously treated H. pylori infection in 2002. Mild splenomegaly. Mild colitis in 2002. Genitourinary History: Reports: BPH, Chronic Renal Insuffiency, Diabetic Nephropathy, Prostate Disorder, Renal Calculus, Retention, Urinary, Urinary Incontinence, Other (See Below). Denies: Acute Renal Failure, STD, UTI, Recurrent Other Genitourinary History: Recurrent bilateral urolithiasis with spontaneous passage with last left sided episode on 01/12/17. BPH with elevated PSAs with negative workup including serial prostate biopsies as below. Musculoskeletal History: Reports: Arthritis, Back Pain, Chronic, Gout, Neck Pain, Chronic, Osteoarthritis, Other (See Below). Denies: Fracture, RA, SLE Other Musculoskeletal History: Hyperuricemia Neurological History: Reports: Neuropathy, Diabetic, Neuropathy, Peripheral. Denies: None, Cerebral Aneurysms, Concussion, CVA, Headaches, Chronic, Head Trauma, Migraines, MS, Parkinson's, Seizure, TIA Other Neuro History: blood clot in the left eye Psychiatric History: Reports: None. Denies: Abuse, Victim of, ADD, ADHD, Addiction, Anxiety, Depression, Psych Hospitalization(s), Psychosis, PTSD, Suicide Attempt, Suicidal Ideation Endocrine/Metabolic History: Reports: Diabetes, Type II, Hypomagnesemia, Obesity/BMI 30+, Vitamin D Deficiency. Denies: Diabetes, Type I, Diabetes Mellitus, Type 3c, Hypothyroidism, IDDM Other Endocrine/Metabolic History: Hypomagnesemia. Hematologic History: Reports: B12 Deficiency, Other (See Below). Denies: Anemia, Blood Transfusion(s), Iron Deficiency Other Hematologic History: Erythrocytosis and thrombocytopenia. Polycythemia. Immunologic History: Reports: None. Denies: AIDS, HIV, SLE Oncologic (Cancer) History: Reports: None. Denies: Basal Cell Carcinoma, Colon, Hodgkin's Lymphoma, Leukemia, Lymphoma, Malignant Melanoma, Non-Hodgkin's Lymphoma, Prostate, Squamous Cell Carcinoma Dermatologic History: Reports: Other (See Below). Denies: Eczema, Psoriasis Other Dermatologic History: History of cervical second-degree benitez in early 2002. - Infectious Disease History Infectious Disease History: Reports: Chicken Pox, Helicobacter Pylori, Measles, Mumps, Other (See Below). 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 - Past Surgical History Head Surgeries/Procedures: Reports: None HEENT Surgical History: Reports: Adenoidectomy, Oral Surgery, Tonsillectomy, Other (See Below). Denies: Cataract Surgery, Eye Surgery, Laser Surgery, LASIK, Myringotomy w Tube(s), Naso-Sinus Surgery Other HEENT Surgeries/Procedures: Tonsillectomy and adenoidectomy at age 11. Multiple teeth extractions. Cardiovascular Surgical History: Reports: None, Coronary Artery Stent, Percutaneous Transluminal Angioplasty, Other (See Below). Denies: Varicose Other Cardiovascular Surgeries/Procedures: PTCA/drug-eluting stent of the left circumflex coronary artery on 11/15/19. Respiratory Surgical History: Reports: None. Denies: Thoracentesis GI Surgical History: Reports: Cholecystectomy, Colonoscopy, EGD, Other (See Below). Denies: Appendectomy, Hernia, Abdominal, Hernia, Inguinal, Hernia R epair/Other, Polypectomy Other GI Surgeries/Procedures: Last EGD and colonoscopy on 02/09/17 with previous evaluation on 06/16/03. Laparoscopic cholecystectomy on 03/20/2000. Male Surgical History: Reports: Prostate Biopsy, TURP-Transurethral Resection of Prostate, Other (See Below). Denies: Circumcision, Vasectomy Other Male Surgeries/Procedures: TURP on 10/07/08. Negative prostate biopsies 3 initially on 10/31/01, then in 2003, and then on 09/17/08. Cystoscopy on 01/22/18. Endocrine Surgical History: Reports: None. Denies: Thyroid Biopsy Neurological Surgical History: Reports: Laminectomy, Lumbar Spine, Other (See Below). Denies: C-Spine, Discectomy, Sacral Spine, Spinal Fusion, Thoracic Spine, Vertebroplasty Other Neurological Surgeries/Procedures: Laminectomy of L3-4 in 2003. Musculoskeletal Surgical History: Reports: Arthroscopic Knee, Joint Replacement, Knee Replacement, Other (See Below). Denies: Carpal Tunnel, ORIF, Shoulder Replacement Other Musculoskeletal Surgeries/Procedures:: Right total knee arthroplasty revision on 12/25/18 with previous total knee arthroplasty right-sided on 03/18/15. Oncologic Surgical History: Reports: None Dermatological Surgical History: Reports: Other (See Below) Other Dermatological Surgeries/Procedures: Excision of pilonidal cyst in September 1959. - Past Imaging History Past Imaging History: Reports: Angiography (Catheterization on 11/14/19 with subsequent PTCA/stent on 11/15/19.), Bone Scan (Whole body bone scan on 11/19/18.), Cardiac Echo (Last echocardiogram on 11/15/19 ejection fraction of 60% and otherwise findings as above. Multiple previous evaluations including 10/19/18, 01/15/18 and stress echocardiogram on 11/23/17 with ejection fraction of 65%.), Carotid US (11/26/09.), CAT Scan (CT scan of the chest on 08/30/14 and 9/17/14 with negative CTA of the chest for PE on 09/17/18, 02/02/04, and 10/07/09. CT scan of the abdomen and pelvis on 01/05/18, 06/04/14, 03/25/02, and 02/28/2000. CT of the head on 11/26/09.), HIDA Scan (02/04/2000.), MRI (MRI of the lumbar spine on 06/25/18 and 01/12/15.), PFT (Last PFTs on 01/21/19.), Sleep Study (Last on 12/18/18), Stress Testing (Stress echocardiogram as above. False negative Lexiscan on 10/29/18 with previous multiple negative cardiac stress tests with last evaluation on 09/05/13.), Ultrasound (Bilateral renal ultrasound on 06/18/19 and 12/26/18. Soft tissue ultrasound of the left leg on 08/08/18 and 06/27/18. Ultrasound of the abdominal aorta on 11/03/17 and 06/17/14.. Abdominal ultrasound on 03/02/99.), Venous Doppler (Negative bilateral venous Doppler study on 09/19/18 and of the right leg on 02/06/19.), Other (See Below) (IVP on 08/02/99) Social & Family History - Family History Cardiac: Reports: Bypass, CAD, Heart Failure, Hypertension, ND, Other (See Below) Other Cardiac Family History: Father with fatal ND and CHF at age 75 in his 70s. Paternal uncles 2 with fatal MIs in their 60s. Another paternal uncle with known coronary artery disease. Brother with four-vessel CABG. Mother with fatal CHF at age 81. Mother and daughter with hypertension. Mother with dyslipidemia Respiratory: Reports: None. Denies: Asthma, COPD, PE, Pneumothorax, Sleep Apnea GI: Reports: Irritable Bowel Syndrome, Other (See Below) Other GI Family History: Mother with irritable bowel syndrome. : Reports: Renal Calculus, Other (See Below) Other Family History: Father and brother with urolithiasis. Psychiatric: Reports: Anxiety, Depression, Other (See Below) Other Psychiatric Family History: Mother with anxiety depression disorder. Paternal uncle with history of depression and alcohol abuse. Endocrine/Metabolic: Reports: Diabetes, type II, Other (See Below) Other Endocrine/Metabolic Family History: Mother with morbid obesity and diabetes mellitus. Oncologic: Reports: Bladder, Breast, Liver, Lung, Other (See Below) Other Oncologic Family History: Paternal uncle with fatal oral versus esophageal cancer likely secondary to tobacco use and his 70s. Maternal aunt with fatal breast cancer in her 70s. Paternal uncle with fatal lung cancer in his 70s with history of tobacco use. Paternal grandmother with fatal liver cancer in her 80s. Maternal aunt with fatal bladder cancer. - Caffeine Use Caffeine Use: Reports: Soda Other Caffeine Use: 2-3/day Caffeine Use Comment: 1 each evening - Living Situation & Occupation Living situation: Reports: (1961. 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 Denies: Joint Swelling, Muscle Stiffness Skin: Reports: No Symptoms Neurological: Denies: Numbness, Paresthesia, Tingling ED EXAM, GENERAL - Physical Exam Exam: See Below Exam Limited By: No Limitations General Appearance: Alert, WD/WN, No Apparent Distress Eye Exam: Bilateral Eye: EOMI, PERRL Head: Atraumatic, Normocephalic Neck: Supple Respiratory/Chest: No Respiratory Distress Extremities: No Pedal Edema, Normal Capillary Refill, Other (Pain reproducible with palpation/pressure just behind and below lateral maleolus right ankle/foot. Foot otherwise nontender. No heat/redness/swelling noted. No calf tenderness/swelling. Skin intact. Able to move ankle. ). No: Joint Swelling, Jose Ramon's Sign, Increased Warmth, Mottled, Pallor, Redness Neurological: Alert, Oriented, No Motor/Sensory Deficits Psychiatric: Normal Affect, Normal Mood Skin Exam: Warm, Dry, Intact, Normal Color Course - Vital Signs Last Recorded V/S: Last Vital Signs Temp 36.4 C 09/06/20 12:30 Pulse 71 09/06/20 12:30 Resp 16 09/06/20 12:30 BP 139/58 L 09/06/20 12:30 Pulse Ox 94 L 09/06/20 12:30 - Re-Assessments/Exams Free Text/Narrative Re-Assessment/Exam: 09/06/20 13:11 May have tendonitis in peroneus tendons based on history and exam. Cannot rule out other tendon/ligament involvement. Given that patient did obtain new shoes this fall, the new shoes may be a contributing factor. It was recommended to the patient that he not use any recently purchased new shoes, and get follow up by Podiatry and PT arranged through his primary provider. 10 pack of Tramadol for PRN pain use dispensed. No evidence of skin breakdown/swelling/infection/DVT noted on exam. Do not feel it is related to any sciatic component at this time. Recent xray performed by PCP overall minimally helpful. May need additional imaging once he is evaluated by Podiatry. Patient agreeable with plan. Departure - Departure Time of Disposition: 12:59 Disposition: Home, Self-Care 01 Condition: Good Clinical Impression: Pain in right ankle and joints of right foot - Discharge Information *PRESCRIPTION DRUG MONITORING PROGRAM REVIEWED*: Not Applicable *COPY OF PRESCRIPTION DRUG MONITORING REPORT IN PATIENT SHAYNA: Not Applicable Instructions: Tramadol tablets Referrals: Christina Sexton NP [Primary Care Provider] - Forms: ED Department Discharge Additional Instructions: Call Christina tomorrow and discuss 1) getting seen by Podiatry to evaluate your foot 2) referral to PT to look at therapies that might be useful such as ultrasound. Stop using any shoes you may have purchased in the last 2-3 months as the wrong shoe can cause foot pain. Only use shoes that you have had good experiences with prior to that. OK to take one Tramadol tab every 6 hours as needed for pain. OK to use this w ith Tylenol and CBD oil. Sepsis Event Note (ED) - Evaluation Sepsis Screening Result: No Definite Risk - Focused Exam Vital Signs: Vital Signs Temp Pulse Resp BP Pulse Ox 09/06/20 12:30 36.4 C 71 16 139/58 L 94 L
== END 2020-09-06 13:10 | disposition home or self-care (01) ==
LOC: LL.ED 12:28
DX: M25.571 Pain in right ankle and joints of right foot (principal); I48.91 Unspecified atrial fibrillation; I25.10 Atherosclerotic heart disease of native coronary artery without angina pectoris; I13.0 Hypertensive heart and chronic kidney disease with heart failure and stage 1 through stage 4 chronic kidney disease, or unspecified chronic kidney disease; I50.9 Heart failure, unspecified; N18.9 Chronic kidney disease, unspecified; I25.2 Old myocardial infarction; E11.22 Type 2 diabetes mellitus with diabetic chronic kidney disease; M10.9 Gout, unspecified; E11.42 Type 2 diabetes mellitus with diabetic polyneuropathy; E66.9 Obesity, unspecified; Z95.5 Presence of coronary angioplasty implant and graft; E78.00 Pure hypercholesterolemia, unspecified; Z79.4 Long term (current) use of insulin; E11.21 Type 2 diabetes mellitus with diabetic nephropathy; Z88.8 Allergy status to other drugs, medicaments and biological substances; Z79.82 Long term (current) use of aspirin; Z79.899 Other long term (current) drug therapy
CPT/HCPCS: 99283

== ENCOUNTER 2021-09-09 11:29 | Emergency (ER) | payer MEDICARE, BC ==
--- NOTE | 2021-09-09 12:00 | EDM.PDOC ---
ED HPI GENERAL MEDICAL PROBLEM - General Chief Complaint: Back Pain or Injury Stated Complaint: Back Pain, Fall Time Seen by Provider: 09/09/21 11:45 Source of Information: Reports: Patient History Limitations: Reports: No Limitations - History of Present Illness INITIAL COMMENTS - FREE TEXT/NARRATIVE: Patient is here for back pain that is radiating down the right leg. he has a fall off the bottom rung of a ladder three weeks ago and fell onto his buttock and right side. Had right latera rib pain for a week and some bruising on the right iliac crest area. He states these things are now better, but he had developed lumbar pain that is worse with standing straight upright and with stretching. History of lumbar fusion in the past./ This worked well and very little pain after. two weeks ago he noted the back pain starting but it did not radiate so he went to the chiropractor and had an adjustment. He became so sore after this he could barely walk and did not return. He has noticed in the last week the pain worsening, radiating down the right buttock to the right anterior knee. No loss of bowel or bladder, has a history of some pain in the right knee due to old TKA. no fevers or chills. No cough. He did drive himself here Duration: Getting Worse - Related Data Allergies Allergy/AdvReac Type Severity Reaction Status Date / Time dutasteride [From Avodart] Allergy Unknown Cannot Verified 09/06/20 12:37 Remember Wbsqvgj-SVK-RfA Reductase Allergy Muscle Verified 09/06/20 12:37 Inhibitor Weakness [Bkyxndq-Hqn-Aks Reductase Inhibitor] Home Meds: Home Meds Aspirin [Adult Aspirin Regimen] 81 mg PO DAILY 01/30/20 [History] Cholecalciferol (Vitamin D3) [Vitamin D3] 1,000 unit PO DAILY 01/30/20 [History] Cyanocobalamin (Vitamin B-12) [B-12 Dots] 500 mcg PO DAILY 01/30/20 [History] Fluticasone/Vilanterol [Breo Ellipta 200-25 MCG Inhalation Kit] 1 puff INH DAILY 01/30/20 [History] Furosemide 40 mg PO DAILY 01/30/20 [History] Simvastatin 40 mg PO BEDTIME 01/30/20 [History] Ticagrelor [Brilinta] 90 mg PO BID 05/14/20 [History] atenoloL [Atenolol] 50 mg PO BEDTIME 01/30/20 [History] lisinopriL [Prinivil] 10 mg PO BEDTIME 01/30/20 [History] Insulin Degludec [Tresiba] 18 unit SUBCUT BEDTIME 04/03/20 [History] Hydrocodone/Acetaminophen [HYDROcodone-Acetaminophen 5-325 MG] 1 each PO Q6H PRN #30 tab 09/09/21 [Rx] diazePAM [Valium] 5 mg PO TID PRN #20 tablet 09/09/21 [Rx] Past Medical History - Past Health History Medical/Surgical History: Denies Medical/Surgical History HEENT History: Reports: Allergic Rhinitis, Cataract, Impaired Vision, Macular Degeneration. Denies: Glaucoma, Hard of Hearing, Otitis Media, Retinal Detachment Other HEENT History: Patient wears glasses. 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 Dry eye syndrome. Left eye arterial thrombosis. Cardiovascular History: Reports: Afib, Arrhythmia, CAD, Cardiomyopathy, Heart Failure, Heart Murmur, High Cholesterol, Hypertension, MT, PTCA, PVD, Stents, Other (See Below). Denies: Aneurysm, Blood Clots/VTE/DVT, Pacemaker, Syncope Other Cardiovascular History: Non-STEMI on 11/14/19 with PTCA/stent as below for 80% stenosis of the proximal left circumflex coronary artery with 30% stenosis of the right coronary artery. 1st degree heart block, right bundle branch block, grade 2 diastolic dysfunction echocardiogram with additional moderate cardiomegaly, moderate aortic valve stenosis with mild aortic valve insufficiency by echocardiogram since 2018. Small pericardial effusion initially diagnosed on 01/05/18 with history of CHF. Dyslipidemia. Moderate bilateral carotid occlusive disease. History of intermittent brief atrial fibrillation PVCs with no anticoagulation therapy. Chronic and/or. recurrent d- dimer elevation with negative workup as below. Respiratory History: Reports: Bronchitis, Recurrent, Intubation, Previous, Sleep Apnea, Other (See Below). Denies: Asthma, COPD, Intubation, Difficult, PE, TB Other Respiratory History: Patient not unable to tolerate CPAP. Gastrointestinal History: Reports: Cholelithiasis, Diverticulosis, Fatty Liver, Gastritis, GERD, Helicobacter Pylori. Denies: Celiac Disease, Chronic Constipation, Chronic Diarrhea, Colon Polyp, Fecal Incontinence, GI Bleed, Hepatitis, Inflammatory Bowel Disease, Irritable Bowel Syndrome, Jaundice, PUD Other Gastrointestinal History: History of elevated liver function tests likely secondary to fatty infiltration of the liver on his dyslipidemia. Previously treated H. pylori infection in 2002. Mild splenomegaly. Mild colitis in 2003. Genitourinary History: Reports: BPH, Chronic Renal Insuffiency, Diabetic Nephropathy, Prostate Disorder, Renal Calculus, Retention, Urinary, Urinary Incontinence, Other (See Below). Denies: Acute Renal Failure, STD, UTI, Recurrent Other Genitourinary History: Recurrent bilateral urolithiasis with spontaneous passage with last left sided episode on 01/12/17. BPH with elevated PSAs with negative workup including serial prostate biopsies as below. Musculoskeletal History: Reports: Arthritis, Back Pain, Chronic, Gout, Neck Pain, Chronic, Osteoarthritis, Other (See Below). Denies: Fracture, RA, SLE Other Musculoskeletal History: Hyperuricemia Neurological History: Reports: Neuropathy, Diabetic, Neuropathy, Peripheral. Denies: None, Cerebral Aneurysms, Concussion, CVA, Headaches, Chronic, Head Trauma, Migraines, MS, Parkinson's, Seizure, TIA Other Neuro History: blood clot in the left eye Psychiatric History: Reports: None. Denies: Abuse, Victim of, ADD, ADHD, Addiction, Anxiety, Depression, Psych Hospitalization(s), Psychosis, PTSD, Suicide Attempt, Suicidal Ideation Endocrine/Metabolic History: Reports: Diabetes, Type II, Hypomagnesemia, Obesity/BMI 30+, Vitamin D Deficiency. Denies: Diabetes, Type I, Diabetes Mellitus, Type 3c, Hypothyroidism, IDDM Other Endocrine/Metabolic History: Hypomagnesemia. Hematologic History: Reports: B12 Deficiency, Other (See Below). Denies: Anemia, Blood Transfusion(s), Iron Deficiency Other Hematologic History: Erythrocytosis and thrombocytopenia. Polycythemia. Immunologic History: Reports: None. Denies: AIDS, HIV, SLE Oncologic (Cancer) History: Reports: None. Denies: Basal Cell Carcinoma, Colon, Hodgkin's Lymphoma, Leukemia, Lymphoma, Malignant Melanoma, Non-Hodgkin's Lymphoma, Prostate, Squamous Cell Carcinoma Dermatologic History: Reports: Other (See Below). Denies: Eczema, Psoriasis Other Dermatologic History: History of cervical second-degree benitez in early 2002. - Infectious Disease History Infectious Disease History: Reports: Chicken Pox, Helicobacter Pylori, Measles, Mumps, Other (See Below). 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 - Past Surgical History Head Surgeries/Procedures: Reports: None HEENT Surgical History: Reports: Adenoidectomy, Oral Surgery, Tonsillectomy, Other (See Below). Denies: Cataract Surgery, Eye Surgery, Laser Surgery, LASIK, Myringotomy w Tube(s), Naso-Sinus Surgery Other HEENT Surgeries/Procedures: Tonsillectomy and adenoidectomy at age 11. Multiple teeth extractions. Cardiovascular Surgical History: Reports: None, Coronary Artery Stent, Percutaneous Transluminal Angioplasty, Other (See Below). Denies: Varicose Other Cardiovascular Surgeries/Procedures: PTCA/drug-eluting stent of the left circumflex coronary artery on 11/15/19. Respiratory Surgical History: Reports: None. Denies: Thoracentesis GI Surgical History: Reports: Cholecystectomy, Colonoscopy, EGD, Other (See Below). Denies: Appendectomy, Hernia, Abdominal, Hernia, Inguinal, Hernia Repair/Other, Polypectomy Other GI Surgeries/Procedures: Last EGD and colonoscopy on 02/09/17 with previous evaluation on 06/16/03. Laparoscopic cholecystectomy on 03/20/2000. Male Surgical History: Reports: Prostate Biopsy, TURP-Transurethral Resection of Prostate, Other (See Below). Denies: Circumcision, Vasectomy Other Male Surgeries/Procedures: TURP on 10/07/08. Negative prostate biopsies 3 initially on 10/31/01, then in 2003, and then on 09/17/08. Cystoscopy on 01/22/18. Endocrine Surgical History: Reports: None. Denies: Thyroid Biopsy Neurological Surgical History: Reports: Laminectomy, Lumbar Spine, Other (See Below). Denies: C-Spine, Discectomy, Sacral Spine, Spinal Fusion, Thoracic Spine, Vertebroplasty Other Neurological Surgeries/Procedures: Laminectomy of L3-4 in 2003. Musculoskeletal Surgical History: Reports: Arthroscopic Knee, Joint Replacement, Knee Replacement, Other (See Below). Denies: Carpal Tunnel, ORIF, Shoulder Replacement Other Musculoskeletal Surgeries/Procedures:: Right total knee arthroplasty revision on 12/25/18 with previous total knee arthroplasty right-sided on 03/18/15. Oncologic Surgical History: Reports: None Dermatological Surgical History: Reports: Other (See Below) Other Dermatological Surgeries/Procedures: Excision of pilonidal cyst in September 1959. - Past Imaging History Past Imaging History: Reports: Angiography (Catheterization on 11/14/19 with subs equent PTCA/stent on 11/15/19.), Bone Scan (Whole body bone scan on 11/19/18.), Cardiac Echo (Last echocardiogram on 11/15/19 ejection fraction of 60% and otherwise findings as above. Multiple previous evaluations including 10/19/18, 01/15/18 and stress echocardiogram on 11/23/17 with ejection fraction of 65%.), Carotid US (11/26/09.), CAT Scan (CT scan of the chest on 08/30/14 and 06/04/14 with negative CTA of the chest for PE on 09/17/18, 02/02/04, and 10/07/09. CT scan of the abdomen and pelvis on 01/05/18, 06/04/14, 03/25/02, and 02/28/2000. CT of the head on 11/26/09.), HIDA Scan (02/04/2000.), MRI (MRI of the lumbar spine on 06/25/18 and 01/12/15.), PFT (Last PFTs on 01/21/19.), Sleep Study (Last on 12/18/18), Stress Testing (Stress echocardiogram as above. False negative Lexiscan on 10/29/18 with previous multiple negative cardiac stress tests with last evaluation on 09/05/13.), Ultrasound (Bilateral renal ultrasound on 06/18/19 and 12/26/18. Soft tissue ultrasound of the left leg on 08/08/18 and 06/27/18. Ultrasound of the abdominal aorta on 11/03/17 and 06/17/14.. Abdominal ultrasound on 03/02/99.), Venous Doppler (Negative bilateral venous Doppler study on 09/19/18 and of the right leg on 02/06/19.), Other (See Below) (IVP on 08/02/99) Social & Family History - Family History Cardiac: Reports: Bypass, CAD, Heart Failure, Hypertension, MT, Other (See Below) Other Cardiac Family History: Father with fatal MT and CHF at age 75 in his 70s. Paternal uncles 2 with fatal MIs in their 60s. Another paternal uncle with known coronary artery disease. Brother with four-vessel CABG. Mother with fatal CHF at age 81. Mother and daughter with hypertension. Mother with dyslipidemia Respiratory: Reports: None. Denies: Asthma, COPD, PE, Pneumothorax, Sleep Apnea GI: Reports: Irritable Bowel Syndrome, Other (See Below) Other GI Family History: Mother with irritable bowel syndrome. : Reports: Renal Calculus, Other (See Below) Other Family History: Father and brother with urolithiasis. Psychiatric: Reports: Anxiety, Depression, Other (See Below) Other Psychiatric Family History: Mother with anxiety depression disorder. Paternal uncle with history of depression and alcohol abuse. Endocrine/Metabolic: Reports: Diabetes, type II, Other (See Below) Other Endocrine/Metabolic Family History: Mother with morbid obesity and diabetes mellitus. Oncologic: Reports: Bladder, Breast, Liver, Lung, Other (See Below) Other Oncologic Family History: Paternal uncle with fatal oral versus esophageal cancer likely secondary to tobacco use and his 70s. Maternal aunt with fatal breast cancer in her 70s. Paternal uncle with fatal lung cancer in his 70s with history of tobacco use. Paternal grandmother with fatal liver cancer in her 80s. Maternal aunt with fatal bladder cancer. - Caffeine Use Caffeine Use: Reports: Soda Other Caffeine Use: 2-3/day Caffeine Use Comment: 1 each evening - Recreational Drug Use Recreational Drug Use: No Drug Use in Last 12 Months: No - Living Situation & Occupation Living situation: Reports: (1961. 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.) ED ROS GENERAL - Review of Systems Review Of Systems: See Below Constitutional: Reports: No Symptoms HEENT: Reports: No Symptoms Respiratory: Reports: No Symptoms Cardiovascular: Reports: No Symptoms Endocrine: Reports: No Symptoms GI/Abdominal: Reports: No Symptoms : Reports: Hematuria Musculoskeletal: Reports: Back Pain Skin: Reports: No Symptoms ED EXAM,LOWER BACK PAIN/INJURY - Physical Exam Exam: See Below Exam Limited By: No Limitations General Appearance: Alert, WD/WN, No Apparent Distress Eye Exam: Bilateral Eye: EOMI, Normal Inspection, PERRL Ears: Normal External Exam, Normal Canal Nose: Normal Inspection Throat/Mouth: Normal Inspection, Normal Lips, Normal Voice Head: Atraumatic Neck: Normal Inspection, Supple Respiratory/Chest: No Respiratory Distress, Lungs Clear, No Accessory Muscle Use, Chest Non-Tender Cardiovascular: Normal Peripheral Pulses, Regular Rate, Rhythm, No Edema, Systolic Murmur GI/Abdominal: Normal Bowel Sounds, Soft, Non-Tender Back Exam: Other (no tenderness to palpation of the vertebal processes. Able to stand, walk and transfer self. No lesions or rashes). No: Muscle Spasm, Paraspinal Tenderness, Vertebral Tenderness Extremities: Other (normal strength in the lower extremities to knee flexion, extension, hip dorsiflexion, foot plantar and dorsiflexion. normal sensation distal inthe inner and outer lowerr leg. No pain to palpation of the greater trochanters. ) Course - Orders/Labs/Meds Orders: Active Orders 24 hr Category Date Time Status Lumbar Spine wo Cont [CT] Stat Exams 09/09/21 11:50 Taken Pelvis 1V or 2V [CR] Stat Exams 09/09/21 11:50 Taken Meds: Medications Discontinued Medications Generic Name Dose Route Start Last Admin Trade Name Freq PRN Reason Stop Dose Admin Methylprednisolone Sodium Succinate 125 mg 09/09/21 12:16 09/09/21 12:25 Methylprednisolone Sodium Succinate 125 Mg/2 Ml Sdv IM 09/09/21 12:17 125 mg ONETIME ONE Administration - Radiology Interpretation Free Text/Narrative:: ct lumbar spine without acute fracture . multilevel degernative changes mostly at l2-3, l3-4, l4-5 with moderate canal stenosis and neural foraminal stenosis. see full report pelvis with moderst bilateral symmetric hip degenerative changes without acute evidence for new findings or fracture. - Re-Assessments/Exams Free Text/Narrative Re-Assessment/Exam: 09/09/21 12:03 Will give the patient an injection of solu medorl 125 mg im. He is advised this will elevate his blood sugars and he will watch this. States he was taking some old " muscle relaxant" that he had but it was not working. Will get pelvis x-ray and ct lumbar spine given his previous fusion and radicular pain. Will send home with valium and hydrocodone and he is advised to not drive with use of these and they cause constipation. Follow up with PCP Departure - Departure Time of Disposition: 12:58 Disposition: Home, Self-Care 01 Condition: Fair Clinical Impression: Acute radicular low back pain - Discharge Information Prescriptions: Hydrocodone/Acetaminophen [HYDROcodone-Acetaminophen 5-325 MG] 1 each PO Q6H PRN #30 tab PRN Reason: Pain diazePAM [Valium] 5 mg PO TID PRN #20 tablet PRN Reason: Spasms Instructions: Radicular Pain Referrals: Christina Sexton POLITICAL ADVISOR [Primary Care Provider] - Forms: ED Department Discharge Additional Instructions: You were given an injection of solu medrol in the ER. This is for inflammation but takes about 24 hours to work and may cause your blood glucose to elevate. Watch this closely and alter your insulin as needed. You are prescribed valium which is a muscle relaxant to be taken every 8 hours as needed for muscle spasm and tightness. You are prescribed hydrocodone 5/325, take one every 6 hours as needed for pain..Do not drive or drink alcohol on these medications. They will cause constipation. Follow up with your PCP. possible traction with physical therapy or epidural inj ection like you have had in the past may help - My Orders Last 24 Hours: My Active Orders 09/09/21 11:50 Lumbar Spine wo Cont [CT] Stat Pelvis 1V or 2V [CR] Stat - Assessment/Plan Last 24 Hours: My Active Orders 09/09/21 11:50 Lumbar Spine wo Cont [CT] Stat Pelvis 1V or 2V [CR] Stat
[2021-09-09] MEDS ORDERED: methylPREDNISolone Sodium Succinate 125 MG/2 ML SDV IM ONE (12:16)
[2021-09-10 17:37] VITALS: BP 138/65; PULSE 82
== END 2021-09-09 13:18 | disposition home or self-care (01) ==
LOC: LL.ED 11:29
DX: M54.16 Radiculopathy, lumbar region (principal); I48.91 Unspecified atrial fibrillation; I25.10 Atherosclerotic heart disease of native coronary artery without angina pectoris; I13.0 Hypertensive heart and chronic kidney disease with heart failure and stage 1 through stage 4 chronic kidney disease, or unspecified chronic kidney disease; E11.22 Type 2 diabetes mellitus with diabetic chronic kidney disease; E11.21 Type 2 diabetes mellitus with diabetic nephropathy; E11.42 Type 2 diabetes mellitus with diabetic polyneuropathy; N18.9 Chronic kidney disease, unspecified; I50.9 Heart failure, unspecified; E78.00 Pure hypercholesterolemia, unspecified; I25.2 Old myocardial infarction; J44.9 Chronic obstructive pulmonary disease, unspecified; K21.9 Gastro-esophageal reflux disease without esophagitis; N40.0 Benign prostatic hyperplasia without lower urinary tract symptoms; E66.9 Obesity, unspecified; Z88.8 Allergy status to other drugs, medicaments and biological substances; Z79.82 Long term (current) use of aspirin; Z79.4 Long term (current) use of insulin; Z79.899 Other long term (current) drug therapy; Z79.02 Long term (current) use of antithrombotics/antiplatelets; Z86.73 Personal history of transient ischemic attack (TIA), and cerebral infarction without residual deficits; Z68.30 Body mass index [BMI] 30.0-30.9, adult
CPT/HCPCS: 72131; 72170; 96372; 99284-25; J2930

== ENCOUNTER 2021-10-05 22:49 | Inpatient (IN) | payer MEDICARE, BC ==
[2021-10-05] MEDS ORDERED: Acetaminophen 325 MG Tab PO ONE (23:21)
[2021-10-05] MEDS ORDERED: Sodium Chloride 0.9% 1,000 ML IV ONE (23:35)
[2021-10-05 23:51] LABS: CHLORIDE,CL 101 mmol/L (98-107); SODIUM,NA 140 mmol/L (136-145)
[2021-10-05 23:53] LABS: ANION GAP 8.6 meq/L (7-15)
[2021-10-05 23:58] LABS: RESPIRATORY SYNCYTIAL VIR NAA NEGATIVE (NEGATIVE)
[2021-10-06 00:01] LABS: CORONAVIRUS COVID-19 NAA POSITIVE (NEGATIVE)
[2021-10-06] MEDS ORDERED: Ondansetron 4 MG/2 ML SDV IVPUSH PRN (00:51)
[2021-10-06] MEDS ORDERED: REMDESIVIR 200 MG in Sodium Chloride 0.9% 250 ML IV ONE (00:56)
[2021-10-06] MEDS ORDERED: Colchicine 0.6 MG Tab PO PRN (01:09)
[2021-10-06] MEDS ORDERED: Sodium Chloride 0.9% 1,000 ML IV SCH (01:15)
[2021-10-06] MEDS ORDERED: Nitroglycerin 0.4 MG Tab.SL SL PRN (01:15)
[2021-10-06] MEDS: Dexamethasone 10 MG/ML SDV IVPUSH SCH ×2 (01:23→09:00)
[2021-10-06] MEDS ORDERED: Sodium Chloride 0.9% 10 ML Syringe FLUSH PRN (01:51)
[2021-10-06] MEDS ORDERED: Acetaminophen 325 MG Tab PO PRN (03:00)
[2021-10-06] MEDS ORDERED: Furosemide 40 MG/4 ML VIAL IVPUSH SCH (08:00)
[2021-10-06] MEDS ORDERED: Gabapentin 300 MG Cap PO SCH (08:00)
[2021-10-06] MEDS ORDERED: Albuterol/Ipratropium 4 GM Inhalation Spray INH SCH (08:00)
[2021-10-06 08:55] LABS: ANION GAP 10.4 meq/L (7-15)
[2021-10-06] MEDS: Cholecalciferol (Vitamin D3) 25 MCG Tab PO SCH (09:00)
[2021-10-06] MEDS ORDERED: Sodium Chloride 0.9% 1,000 ML IV ONE ×2 (12:18→14:30)
[2021-10-06] MEDS: Sodium Chloride 0.9% 10 ML Syringe FLUSH PRN ×3 (12:32→20:03)
[2021-10-06] MEDS ORDERED: Iopamidol 755 Mg/ML 100 ML Bottle IVPUSH STA (13:15)
[2021-10-06] MEDS: Enoxaparin 40 MG/0.4 ML Syringe SUBCUT SCH (15:23)
[2021-10-06 19:31] LABS: ANION GAP 6.3 meq/L (7-15)
[2021-10-06] MEDS: Simvastatin 20 MG Tab PO SCH (19:54)
[2021-10-06] MEDS: Atenolol 50 MG Tab PO SCH (19:55)
[2021-10-06] MEDS: Lisinopril 10 MG Tab PO SCH (19:55)
[2021-10-06] MEDS: Gabapentin 300 MG Cap PO SCH (19:59)
[2021-10-06] MEDS: Insulin Glarg,Human.Rec.Analog 100 Unit/ML SUBCUT SCH (20:00)
[2021-10-06] MEDS: REMDESIVIR 100 MG in Sodium Chloride 0.9% 100 ML IV SCH (20:04)
[2021-10-06] MEDS: Sodium Chloride 0.9% 10 ML Syringe FLUSH SCH (21:34)
[2021-10-07] MEDS ORDERED: REMDESIVIR 100 MG in Sodium Chloride 0.9% 100 ML IV SCH (01:00)
[2021-10-07] MEDS: Dexamethasone 10 MG/ML SDV IVPUSH SCH (07:47)
[2021-10-07] MEDS: Furosemide 20 MG/2 ML VIAL IVPUSH SCH (07:47)
[2021-10-07] MEDS: Cholecalciferol (Vitamin D3) 25 MCG Tab PO SCH (07:47)
[2021-10-07] MEDS: Enoxaparin 40 MG/0.4 ML Syringe SUBCUT SCH (07:49)
[2021-10-07] MEDS: Sodium Chloride 0.9% 10 ML Syringe FLUSH PRN ×3 (07:51→19:47)
[2021-10-07] MEDS: Gabapentin 300 MG Cap PO SCH (08:00)
[2021-10-07] MEDS ORDERED: Benzonatate 100 MG Cap PO PRN (19:37)
[2021-10-07] MEDS: Insulin Glarg,Human.Rec.Analog 100 Unit/ML SUBCUT SCH (19:43)
[2021-10-07] MEDS: Simvastatin 20 MG Tab PO SCH (19:45)
[2021-10-07] MEDS: Atenolol 50 MG Tab PO SCH (19:46)
[2021-10-07] MEDS: Lisinopril 10 MG Tab PO SCH (19:46)
[2021-10-07] MEDS: REMDESIVIR 100 MG in Sodium Chloride 0.9% 100 ML IV SCH (19:47)
[2021-10-07] MEDS: Sodium Chloride 0.9% 10 ML Syringe FLUSH SCH (20:53)
[2021-10-08] MEDS ORDERED: Apixaban 5 MG Tab PO SCH (08:00)
[2021-10-08] MEDS: Dexamethasone 10 MG/ML SDV IVPUSH SCH (08:12)
[2021-10-08] MEDS: Furosemide 20 MG/2 ML VIAL IVPUSH SCH (08:12)
[2021-10-08] MEDS: Cholecalciferol (Vitamin D3) 25 MCG Tab PO SCH (08:12)
[2021-10-08 08:37] VITALS: BP 139/77; PULSE 63
[2021-10-08 08:51] LABS: CHLORIDE,CL 106 mmol/L (98-107); SODIUM,NA 146 mmol/L (136-145)
== END 2021-10-08 12:00 | disposition home or self-care (01) | DRG 177 ==
LOC: LL.ED 22:49 → LL.MS 10-06 00:10
PROVIDERS: ADMIT Emergency Medicine; ATTEND Emergency Medicine
PROC: 8E0ZXY6 Isolation (ICD-10-PCS; principal; 2021-10-05)
PROC: 3E0333Z Introduction of Anti-inflammatory into Peripheral Vein, Percutaneous Approach (ICD-10-PCS; 2021-10-05)
PROC: XW033E5 Introduction of Remdesivir Anti-infective into Peripheral Vein, Percutaneous Approach, New Technology Group 5 (ICD-10-PCS; 2021-10-05)
DX: U07.1 COVID-19 (principal); J12.82 Pneumonia due to coronavirus disease 2019; H54.7 Unspecified visual loss; H35.30 Unspecified macular degeneration; I26.93 Single subsegmental thrombotic pulmonary embolism without acute cor pulmonale; I13.0 Hypertensive heart and chronic kidney disease with heart failure and stage 1 through stage 4 chronic kidney disease, or unspecified chronic kidney disease; I50.32 Chronic diastolic (congestive) heart failure; K21.9 Gastro-esophageal reflux disease without esophagitis; E78.00 Pure hypercholesterolemia, unspecified; E86.0 Dehydration; G62.9 Polyneuropathy, unspecified; R09.02 Hypoxemia; R79.89 Other specified abnormal findings of blood chemistry; N18.9 Chronic kidney disease, unspecified; Z88.8 Allergy status to other drugs, medicaments and biological substances; Z79.82 Long term (current) use of aspirin; E87.5 Hyperkalemia; Z79.899 Other long term (current) drug therapy; I50.9 Heart failure, unspecified; D69.6 Thrombocytopenia, unspecified; E78.5 Hyperlipidemia, unspecified; N18.2 Chronic kidney disease, stage 2 (mild); E11.22 Type 2 diabetes mellitus with diabetic chronic kidney disease; D58.2 Other hemoglobinopathies; M15.9 Polyosteoarthritis, unspecified; J43.1 Panlobular emphysema; K31.9 Disease of stomach and duodenum, unspecified; I48.91 Unspecified atrial fibrillation; Z96.651 Presence of right artificial knee joint; N40.0 Benign prostatic hyperplasia without lower urinary tract symptoms; I25.10 Atherosclerotic heart disease of native coronary artery without angina pectoris; N40.1 Benign prostatic hyperplasia with lower urinary tract symptoms; R33.8 Other retention of urine; E83.42 Hypomagnesemia; E66.9 Obesity, unspecified; Z97.3 Presence of spectacles and contact lenses; Z79.01 Long term (current) use of anticoagulants; I25.2 Old myocardial infarction; Z95.5 Presence of coronary angioplasty implant and graft; Z87.19 Personal history of other diseases of the digestive system; Z68.32 Body mass index [BMI] 32.0-32.9, adult; Z90.89 Acquired absence of other organs; Z79.4 Long term (current) use of insulin; Z98.890 Other specified postprocedural states; Z90.49 Acquired absence of other specified parts of digestive tract; Z90.79 Acquired absence of other genital organ(s)
CPT/HCPCS: 0241U; 36415; 71045; 71275; 80048; 80053; 81001; 82248; 82947; 83605; 83880; 85025; 85379; 94640; 94761; 97162-GP; 97530-GP; 99284; 99285-25; A9270-GY; J0248; J1100; J1650; J1815-GY; J1940; J7030; J7050; Q9967

== ENCOUNTER 2022-02-18 22:01 | Emergency (ER) | payer MEDICARE, BC ==
[2022-02-18] MEDS ORDERED: Ondansetron 4 MG/2 ML SDV IVPUSH ONE (22:22)
[2022-02-18] MEDS ORDERED: diphenhydrAMINE 50 MG/ML SDV IVPUSH ONE (22:22)
[2022-02-18] MEDS ORDERED: Ketorolac 15 MG/ML SDV IVPUSH ONE (22:23)
[2022-02-18] MEDS ORDERED: Sodium Chloride 0.9% 1,000 ML IV SCH (22:30)
[2022-02-18] MEDS ORDERED: Morphine 2 MG/ML SYRINGE IVPUSH ONE (23:01)
[2022-02-18 23:35] LABS: ANION GAP 7.1 meq/L (7-15); CHLORIDE,CL 100 mmol/L (98-107); SODIUM,NA 140 mmol/L (136-145)
[2022-02-19] MEDS ORDERED: Sodium Chloride 0.9% 1,000 ML IV ONE (00:15)
[2022-02-19 01:42] VITALS: BP 166/91; PULSE 93
== END 2022-02-19 00:27 ==
LOC: LL.ED 22:01
DX: R51.9 Headache, unspecified (principal); E83.42 Hypomagnesemia; H53.8 Other visual disturbances; R93.0 Abnormal findings on diagnostic imaging of skull and head, not elsewhere classified; I48.91 Unspecified atrial fibrillation; I25.10 Atherosclerotic heart disease of native coronary artery without angina pectoris; E78.00 Pure hypercholesterolemia, unspecified; I11.0 Hypertensive heart disease with heart failure; I50.9 Heart failure, unspecified; I25.2 Old myocardial infarction; K21.9 Gastro-esophageal reflux disease without esophagitis; E11.9 Type 2 diabetes mellitus without complications; N40.0 Benign prostatic hyperplasia without lower urinary tract symptoms; E66.9 Obesity, unspecified; Z68.30 Body mass index [BMI] 30.0-30.9, adult; Z88.8 Allergy status to other drugs, medicaments and biological substances; Z79.82 Long term (current) use of aspirin; Z79.4 Long term (current) use of insulin; Z79.01 Long term (current) use of anticoagulants; Z79.899 Other long term (current) drug therapy
CPT/HCPCS: 36415; 70450; 80053; 83735; 85025; 96361; 96374; 96375; 99284; 99285-25; J1200; J2270; J2405; J7030

== ENCOUNTER 2023-03-28 12:46 | Emergency (ER) | payer MEDICARE, BC ==
[~2023-03-28 12:46] MED LIST changes: -Lactated Ringers 1,000 ML IV SCH; -Lidocaine 2% 5 ML SDV ONE; -Midazolam 1 MG/ML 2 ML SDV ONE; -Propofol 200 MG/20 ML SDV ONE; -fentaNYL 100 MCG/2 ML SDV ONE
[2023-03-28] MEDS ORDERED: Aspirin 81 MG Tab.Chew PO ONE (12:58)
[2023-03-28] MEDS ORDERED: Nitroglycerin 0.4 MG Tab.SL SL ONE (12:59)
[2023-03-28] MEDS ORDERED: Nitroglycerin 0.4 MG Tab.SL ONE (13:00)
[2023-03-28] MEDS ORDERED: Aspirin 81 MG Tab.Chew ONE (13:00)
[2023-03-28 13:06] LABS: BASOPHILS ABSOLUTE AUTO 0.02 K/uL (0.00-0.20); BASOPHILS PERCENT AUTO 0.3 % (0.0-2.0); EOSINOPHILS ABSOLUTE AUTO 0.08 K/uL (0.00-0.50); HEMATOCRIT 55.6 % (39.0-49.0); LYMPHOCYTES ABSOLUTE AUTO 3.66 K/uL (0.50-3.50); LYMPHOCYTES PERCENT AUTO 45.8 % (10.0-50.0); MEAN CORPUSCULAR HEMOGLOBIN 29.7 pg (28.2-33.3); MEAN CORPUSCULAR HGB CONC 33.6 g/dL (31.7-36.0); MEAN CORPUSCULAR VOLUME 88.4 fL (84.0-98.0); MONOCYTES ABSOLUTE AUTO 0.38 K/uL (0.00-1.00); MONOCYTES PERCENT AUTO 4.8 % (2.0-14.0); NEUTROPHILS ABSOLUTE AUTO 3.85 K/uL (1.40-7.00); NEUTROPHILS PERCENT AUTO 48.1 % (45.0-80.0); PLATELET COUNT,PLT 97 K/uL (150-350); RED BLOOD CELL COUNT 6.29 M/uL (4.33-5.41); RED CELL DISTRIBUTION WIDTH 14.3 % (11.2-14.1)
[2023-03-28 13:09] LABS: HEMOGLOBIN 18.7 g/dL (13.1-16.8)
[2023-03-28 13:29] LABS: INR 1.7; PROTHROMBIN TIME 16.7 SEC (9.0-11.1)
[2023-03-28 13:34] LABS: ALBUMIN 3.6 g/dL (3.4-5.0); ANION GAP 11.3 meq/L (7-15); BILIRUBIN TOTAL 0.9 mg/dL (0.2-1.0); CALCIUM 9.1 mg/dL (8.5-10.1); CARBON DIOXIDE,CO2 32.6 mmol/L (21.0-32.0); CREATININE 1.14 mg/dL (0.51-1.17); EST CRCL DRUG DOSING (CG) 36.77 mL/min; MAGNESIUM 1.8 mg/dL (1.8-2.4); POTASSIUM,K 3.9 mmol/L (3.5-5.1); PROTEIN TOTAL,TP 7.2 g/dL (6.4-8.2)
[2023-03-28] MEDS ORDERED: Iopamidol 755 Mg/ML 100 ML Bottle IVPUSH ONE (14:20)
[2023-03-28] MEDS ORDERED: Pantoprazole 40 MG Vial IVPUSH ONE (16:11)
[2023-03-28 17:34] VITALS: BP 151/85; PULSE 62
== END 2023-03-28 17:00 | disposition home or self-care (01) ==
LOC: LL.ED 12:46
DX: R07.89 Other chest pain (principal); I48.91 Unspecified atrial fibrillation; I25.10 Atherosclerotic heart disease of native coronary artery without angina pectoris; I11.0 Hypertensive heart disease with heart failure; I50.9 Heart failure, unspecified; E78.00 Pure hypercholesterolemia, unspecified; I25.2 Old myocardial infarction; K21.9 Gastro-esophageal reflux disease without esophagitis; N40.0 Benign prostatic hyperplasia without lower urinary tract symptoms; E11.42 Type 2 diabetes mellitus with diabetic polyneuropathy; E66.9 Obesity, unspecified; Z68.39 Body mass index [BMI] 39.0-39.9, adult; Z88.5 Allergy status to narcotic agent; Z88.8 Allergy status to other drugs, medicaments and biological substances; Z79.82 Long term (current) use of aspirin; Z79.899 Other long term (current) drug therapy; Z79.01 Long term (current) use of anticoagulants
CPT/HCPCS: 36415; 71045; 71275; 80053; 82550; 83605; 83735; 83880; 84484; 85025; 85379; 85610; 85730; 93005; 99285; A9270-GY; C9113; J3490; Q9967

== ENCOUNTER 2024-08-19 13:46 | Inpatient (IN) | payer MEDICARE ==
[2024-08-19 14:05] LABS: BASOPHILS ABSOLUTE AUTO 0.04 K/uL (0.00-0.20); BASOPHILS PERCENT AUTO 0.4 % (0.0-2.0); HEMATOCRIT 55.1 % (39.0-49.0); IMMATURE GRAN ABSOLUTE AUTO 0.02 10^3/uL (0.00-0.50); IMMATURE GRAN PERCENT AUTO 0.2 % (0.0-5.0); LYMPHOCYTES ABSOLUTE AUTO 3.11 K/uL (0.50-3.50); LYMPHOCYTES PERCENT AUTO 29.6 % (10.0-50.0); MEAN CORPUSCULAR HEMOGLOBIN 30.3 pg (28.2-33.3); MEAN CORPUSCULAR HGB CONC 32.8 g/dL (31.7-36.0); MEAN CORPUSCULAR VOLUME 92.3 fL (84.0-98.0); MONOCYTES ABSOLUTE AUTO 1.08 K/uL (0.00-1.00); MONOCYTES PERCENT AUTO 10.3 % (2.0-14.0); NEUTROPHILS ABSOLUTE AUTO 6.25 K/uL (1.40-7.00); NEUTROPHILS PERCENT AUTO 59.5 % (45.0-80.0); PLATELET COUNT,PLT 103 K/uL (150-350); RED BLOOD CELL COUNT 5.97 M/uL (4.33-5.41); RED CELL DISTRIBUTION WIDTH 13.6 % (11.2-14.1); WHITE BLOOD CELL COUNT,WBC 10.5 K/uL (4.0-10.2)
[2024-08-19 14:09] LABS: HEMOGLOBIN 18.1 g/dL (13.1-16.8)
[2024-08-19 14:16] LABS: INR 1.9 (0.9-1.1)
[2024-08-19 14:24] LABS: ALANINE AMINOTRANSFERASE,ALT 22 U/L (12-78); ALBUMIN 3.2 g/dL (3.4-5.0); ALKALINE PHOSPHATASE 80 IU/L (46-116); ANION GAP 10.7 meq/L (7-15); ASPARTATE AMNIOTRANSFERASE,AST 29 U/L (15-37); BILIRUBIN TOTAL 1.1 mg/dL (0.2-1.0); BLOOD UREA NITROGEN,BUN 32 mg/dL (7-18); CALCIUM 8.8 mg/dL (8.5-10.1); CARBON DIOXIDE,CO2 33.4 mmol/L (21.0-32.0); CHLORIDE,CL 101 mmol/L (98-107); CREATININE 1.97 mg/dL (0.51-1.17); ESTIMATED GFR 33 mL/min (>=60); GLUCOSE RANDOM 140 mg/dL (70-99); POTASSIUM,K 4.1 mmol/L (3.5-5.1); PRO B-TYPE NATRIUR PEPT,BNPPRO 938 pg/mL (0-125); PROTEIN TOTAL,TP 6.7 g/dL (6.4-8.2); SODIUM,NA 141 mmol/L (136-145)
[2024-08-19] MEDS: Iopamidol 755 Mg/ML 100 ML Bottle IVPUSH STA (15:41)
[2024-08-19] MEDS ORDERED: Ondansetron 4 MG/2 ML SDV IVPUSH PRN (16:32)
[2024-08-19] MEDS ORDERED: Ondansetron 4 MG Tab.DIS PO PRN (16:32)
[2024-08-19] MEDS ORDERED: Nitroglycerin 0.4 MG Tab.SL SL PRN (17:59)
[2024-08-19] MEDS: Lactated Ringers 1,000 ML IV ONE (18:24)
[2024-08-19] MEDS: Gabapentin 300 MG Cap PO SCH (19:51)
[2024-08-19] MEDS: diphenhydrAMINE 25 MG Cap PO PRN (19:51)
[2024-08-19] MEDS: Warfarin 2.5 MG Tab PO SCH (19:51)
[2024-08-19] MEDS: Acetaminophen 500 MG Tab PO PRN (19:51)
[2024-08-19] MEDS: Insulin Glarg,Human.Rec.Analog 100 Unit/ML 10 ML Vial SUBCUT SCH (20:04)
[2024-08-19] MEDS: Atenolol 25 MG Tab PO SCH (20:05)
[2024-08-19] MEDS: Lisinopril 10 MG Tab PO SCH (20:05)
[2024-08-20 06:58] LABS: BASOPHILS ABSOLUTE AUTO 0.03 K/uL (0.00-0.20); BASOPHILS PERCENT AUTO 0.3 % (0.0-2.0); EOSINOPHILS ABSOLUTE AUTO 0.01 K/uL (0.00-0.50); EOSINOPHILS PERCENT AUTO 0.1 % (0.0-5.0); HEMATOCRIT 53.2 % (39.0-49.0); HEMOGLOBIN 17.8 g/dL (13.1-16.8); IMMATURE GRAN ABSOLUTE AUTO 0.02 10^3/uL (0.00-0.50); IMMATURE GRAN PERCENT AUTO 0.2 % (0.0-5.0); LYMPHOCYTES ABSOLUTE AUTO 1.76 K/uL (0.50-3.50); MEAN CORPUSCULAR HEMOGLOBIN 30.4 pg (28.2-33.3); MEAN CORPUSCULAR HGB CONC 33.5 g/dL (31.7-36.0); MEAN CORPUSCULAR VOLUME 90.8 fL (84.0-98.0); MONOCYTES ABSOLUTE AUTO 0.75 K/uL (0.00-1.00); MONOCYTES PERCENT AUTO 7.2 % (2.0-14.0); NEUTROPHILS ABSOLUTE AUTO 7.78 K/uL (1.40-7.00); NEUTROPHILS PERCENT AUTO 75.2 % (45.0-80.0); PLATELET COUNT,PLT 103 K/uL (150-350); RED BLOOD CELL COUNT 5.86 M/uL (4.33-5.41); RED CELL DISTRIBUTION WIDTH 13.3 % (11.2-14.1); WHITE BLOOD CELL COUNT,WBC 10.4 K/uL (4.0-10.2)
[2024-08-20 07:23] LABS: INR 1.9 (0.9-1.1); PROTHROMBIN TIME 18.3 SEC (9.0-11.1)
[2024-08-20 07:27] LABS: ANION GAP 7.8 meq/L (7-15); CALCIUM 8.6 mg/dL (8.5-10.1); CARBON DIOXIDE,CO2 31.2 mmol/L (21.0-32.0); CREATININE 1.55 mg/dL (0.51-1.17); EST CRCL DRUG DOSING (CG) 33.16 mL/min; POTASSIUM,K 4.6 mmol/L (3.5-5.1); PROTEIN TOTAL,TP 6.6 g/dL (6.4-8.2)
[2024-08-20 08:40] LABS: PCO2 ARTERIAL,POC 41 mmHg (35-48); PH ARTERIAL,POC 7.5 pH (7.35-7.45)
[2024-08-20 08:41] LABS: BASE EXCESS ARTERIAL,POC 12 mmol/L (-2-3); HCO3 ARTERIAL,POC 35.4 mmol/L (22-26); O2 SATURATION ARTERIAL,POC 94.5 % (95-98); PO2 ARTERIAL,POC 64 mmHg (83-108)
[2024-08-20] MEDS: Furosemide 40 MG Tab PO SCH (08:53)
[2024-08-20] MEDS: Cyanocobalamin (Vitamin B12) 250 MCG Tab PO SCH (09:02)
[2024-08-20] MEDS: Cholecalciferol (Vitamin D3) 25 MCG Tab PO SCH (09:03)
[2024-08-20] MEDS: Aspirin 81 MG Tab.EC PO SCH (09:03)
[2024-08-20] MEDS: Magnesium Oxide 400 MG Tab PO SCH (09:03)
[2024-08-20] MEDS: Sodium Chloride 0.9% 10 ML Syringe FLUSH PRN (09:52)
[2024-08-20] MEDS: Furosemide 40 MG/4 ML VIAL IVPUSH ONE ×2 (09:53→14:48)
[2024-08-20 12:26] LABS: PTT,PARTIAL THROMBOPLSTIN TIME 34.5 SEC (23.6-29.8)
[2024-08-20 12:30] LABS: PROTHROMBIN TIME 18.2 SEC (9.0-11.1)
[2024-08-20 16:16] LABS: PH ARTERIAL,POC 7.4 pH (7.35-7.45)
[2024-08-20 16:17] LABS: PCO2 ARTERIAL,POC 42 mmHg (35-48)
[2024-08-20 16:18] LABS: HCO3 ARTERIAL,POC 28.8 mmol/L (22-26); O2 SATURATION ARTERIAL,POC 94.3 % (95-98); PO2 ARTERIAL,POC 69 mmHg (83-108)
[2024-08-20 16:19] LABS: BASE EXCESS ARTERIAL,POC 4 mmol/L (-2-3); TCO2 ARTERIAL,POC 27.8 mmol/L (23-27)
[2024-08-20] MEDS ORDERED: Warfarin 5 MG Tab PO SCH (18:00)
[2024-08-20] MEDS: Warfarin 2.5 MG Tab PO SCH (19:38)
[2024-08-20] MEDS: Acetaminophen 325 MG Tab PO PRN (22:52)
[2024-08-20] MEDS: Magnesium Hydroxide 400 MG/5 ML Susp 30 ML Cup PO ONE (22:54)
[2024-08-21] MEDS: VILANTEROL INH SCH (08:07)
[2024-08-21] MEDS: FLUTICASONE INH SCH (08:07)
[2024-08-21 08:09] LABS: ALBUMIN 2.5 g/dL (3.4-5.0); CALCIUM 8.1 mg/dL (8.5-10.1); CARBON DIOXIDE,CO2 32.4 mmol/L (21.0-32.0); CREATININE 1.53 mg/dL (0.51-1.17); EST CRCL DRUG DOSING (CG) 33.59 mL/min; MAGNESIUM 2.2 mg/dL (1.8-2.4); POTASSIUM,K 3.8 mmol/L (3.5-5.1); PROTEIN TOTAL,TP 5.9 g/dL (6.4-8.2)
[2024-08-21 08:11] LABS: ANION GAP 2.4 meq/L (7-15)
[2024-08-21 08:30] LABS: INR 1.6 (0.9-1.1); PROTHROMBIN TIME 15.3 SEC (9.0-11.1)
[2024-08-21 08:51] LABS: BASOPHILS ABSOLUTE AUTO 0.03 K/uL (0.00-0.20); BASOPHILS PERCENT AUTO 0.4 % (0.0-2.0); EOSINOPHILS ABSOLUTE AUTO 0.01 K/uL (0.00-0.50); EOSINOPHILS PERCENT AUTO 0.1 % (0.0-5.0); HEMATOCRIT 49.3 % (39.0-49.0); HEMOGLOBIN 16.4 g/dL (13.1-16.8); IMMATURE GRAN ABSOLUTE AUTO 0.01 10^3/uL (0.00-0.50); IMMATURE GRAN PERCENT AUTO 0.1 % (0.0-5.0); LYMPHOCYTES ABSOLUTE AUTO 1.94 K/uL (0.50-3.50); LYMPHOCYTES PERCENT AUTO 23.6 % (10.0-50.0); MEAN CORPUSCULAR HEMOGLOBIN 30.4 pg (28.2-33.3); MEAN CORPUSCULAR HGB CONC 33.3 g/dL (31.7-36.0); MEAN CORPUSCULAR VOLUME 91.5 fL (84.0-98.0); MONOCYTES ABSOLUTE AUTO 0.72 K/uL (0.00-1.00); MONOCYTES PERCENT AUTO 8.8 % (2.0-14.0); PLATELET COUNT,PLT 90 K/uL (150-350); RED BLOOD CELL COUNT 5.39 M/uL (4.33-5.41); RED CELL DISTRIBUTION WIDTH 13.4 % (11.2-14.1); WHITE BLOOD CELL COUNT,WBC 8.2 K/uL (4.0-10.2)
[2024-08-21] MEDS: Enoxaparin 80 MG/0.8 ML Syringe SUBCUT SCH ×2 (10:44→20:25)
[2024-08-21] MEDS: Sodium Chloride 3% 500 ML IV SCH (11:25)
[2024-08-21 13:39] LABS: BASE EXCESS ARTERIAL,POC 2 mmol/L (-2-3); HCO3 ARTERIAL,POC 27.4 mmol/L (22-26); O2 SATURATION ARTERIAL,POC 91.4 % (95-98); PCO2 ARTERIAL,POC 42 mmHg (35-48); PH ARTERIAL,POC 7.4 pH (7.35-7.45); TCO2 ARTERIAL,POC 26.4 mmol/L (23-27)
[2024-08-21 13:42] LABS: PO2 ARTERIAL,POC 61 mmHg (83-108)
[2024-08-21] MEDS: Iopamidol 755 Mg/ML 100 ML Bottle IVPUSH ONE (16:16)
[2024-08-21] MEDS: Iopamidol 755 Mg/ML 100 ML Bottle ONE (16:25)
[2024-08-21 17:29] LABS: BASOPHILS ABSOLUTE AUTO 0.01 K/uL (0.00-0.20); BASOPHILS PERCENT AUTO 0.1 % (0.0-2.0); HEMATOCRIT 49.4 % (39.0-49.0); HEMOGLOBIN 16.5 g/dL (13.1-16.8); IMMATURE GRAN ABSOLUTE AUTO 0.01 10^3/uL (0.00-0.50); IMMATURE GRAN PERCENT AUTO 0.1 % (0.0-5.0); LYMPHOCYTES ABSOLUTE AUTO 1.14 K/uL (0.50-3.50); LYMPHOCYTES PERCENT AUTO 15.1 % (10.0-50.0); MEAN CORPUSCULAR HEMOGLOBIN 30.4 pg (28.2-33.3); MEAN CORPUSCULAR HGB CONC 33.4 g/dL (31.7-36.0); MEAN CORPUSCULAR VOLUME 91.1 fL (84.0-98.0); MONOCYTES ABSOLUTE AUTO 0.47 K/uL (0.00-1.00); MONOCYTES PERCENT AUTO 6.2 % (2.0-14.0); NEUTROPHILS ABSOLUTE AUTO 5.94 K/uL (1.40-7.00); NEUTROPHILS PERCENT AUTO 78.5 % (45.0-80.0); PLATELET COUNT,PLT 88 K/uL (150-350); RED BLOOD CELL COUNT 5.42 M/uL (4.33-5.41); RED CELL DISTRIBUTION WIDTH 13.2 % (11.2-14.1); WHITE BLOOD CELL COUNT,WBC 7.6 K/uL (4.0-10.2)
[2024-08-21] MEDS: Warfarin 5 MG Tab PO ONE (17:31)
[2024-08-21 17:39] LABS: LACTIC ACID 1.3 mmol/L (0.4-2.0)
[2024-08-21 17:43] LABS: ANION GAP 10.6 meq/L (7-15); CALCIUM 8.4 mg/dL (8.5-10.1); CARBON DIOXIDE,CO2 31.7 mmol/L (21.0-32.0); CREATININE 1.57 mg/dL (0.51-1.17); EST CRCL DRUG DOSING (CG) 32.74 mL/min; POTASSIUM,K 4.3 mmol/L (3.5-5.1)
[2024-08-22 07:53] LABS: ALBUMIN 2.5 g/dL (3.4-5.0); BILIRUBIN TOTAL 0.5 mg/dL (0.2-1.0); CALCIUM 8.2 mg/dL (8.5-10.1); CARBON DIOXIDE,CO2 34.8 mmol/L (21.0-32.0); CREATININE 1.44 mg/dL (0.51-1.17); EST CRCL DRUG DOSING (CG) 35.69 mL/min; MAGNESIUM 2.2 mg/dL (1.8-2.4); PROTEIN TOTAL,TP 5.9 g/dL (6.4-8.2)
[2024-08-22 07:55] LABS: ANION GAP 8.2 meq/L (7-15)
[2024-08-22 07:57] LABS: INR 1.8 (0.9-1.1); PROTHROMBIN TIME 17.1 SEC (9.0-11.1)
[2024-08-22 08:35] LABS: BASOPHILS ABSOLUTE AUTO 0.03 K/uL (0.00-0.20); BASOPHILS PERCENT AUTO 0.5 % (0.0-2.0); HEMATOCRIT 47.9 % (39.0-49.0); HEMOGLOBIN 15.9 g/dL (13.1-16.8); IMMATURE GRAN ABSOLUTE AUTO 0.01 10^3/uL (0.00-0.50); IMMATURE GRAN PERCENT AUTO 0.2 % (0.0-5.0); LYMPHOCYTES PERCENT AUTO 27.1 % (10.0-50.0); MEAN CORPUSCULAR HEMOGLOBIN 30.6 pg (28.2-33.3); MEAN CORPUSCULAR HGB CONC 33.2 g/dL (31.7-36.0); MEAN CORPUSCULAR VOLUME 92.3 fL (84.0-98.0); MONOCYTES ABSOLUTE AUTO 0.64 K/uL (0.00-1.00); MONOCYTES PERCENT AUTO 9.7 % (2.0-14.0); NEUTROPHILS ABSOLUTE AUTO 4.15 K/uL (1.40-7.00); NEUTROPHILS PERCENT AUTO 62.5 % (45.0-80.0); PLATELET COUNT,PLT 96 K/uL (150-350); RED BLOOD CELL COUNT 5.19 M/uL (4.33-5.41); RED CELL DISTRIBUTION WIDTH 13.3 % (11.2-14.1); WHITE BLOOD CELL COUNT,WBC 6.6 K/uL (4.0-10.2)
[2024-08-22] MEDS: Furosemide 40 MG/4 ML VIAL IVPUSH ONE (11:16)
[2024-08-22 11:28] LABS: BASE EXCESS ARTERIAL,POC 4 mmol/L (-2-3); HCO3 ARTERIAL,POC 28.9 mmol/L (22-26); PCO2 ARTERIAL,POC 45 mmHg (35-48); PH ARTERIAL,POC 7.4 pH (7.35-7.45); PO2 ARTERIAL,POC 82 mmHg (83-108)
[2024-08-22] MEDS: Dexamethasone 4 MG Tab PO SCH (15:36)
[2024-08-22] MEDS: REMDESIVIR 200 MG in Sodium Chloride 0.9% 250 ML IV ONE (15:54)
[2024-08-22] MEDS: Warfarin 5 MG Tab PO ONE (17:56)
[2024-08-23 08:17] LABS: BASOPHILS ABSOLUTE AUTO 0.01 K/uL (0.00-0.20); BASOPHILS PERCENT AUTO 0.2 % (0.0-2.0); HEMATOCRIT 49.7 % (39.0-49.0); HEMOGLOBIN 16.3 g/dL (13.1-16.8); LYMPHOCYTES ABSOLUTE AUTO 1.32 K/uL (0.50-3.50); LYMPHOCYTES PERCENT AUTO 24.3 % (10.0-50.0); MEAN CORPUSCULAR HGB CONC 32.8 g/dL (31.7-36.0); MEAN CORPUSCULAR VOLUME 91.4 fL (84.0-98.0); MONOCYTES PERCENT AUTO 3.7 % (2.0-14.0); NEUTROPHILS PERCENT AUTO 71.8 % (45.0-80.0); PLATELET COUNT,PLT 97 K/uL (150-350); RED BLOOD CELL COUNT 5.44 M/uL (4.33-5.41); WHITE BLOOD CELL COUNT,WBC 5.4 K/uL (4.0-10.2)
[2024-08-23 08:32] LABS: INR 2.2 (0.9-1.1); PROTHROMBIN TIME 21.6 SEC (9.0-11.1)
[2024-08-23 08:42] LABS: ALBUMIN 2.5 g/dL (3.4-5.0); BILIRUBIN TOTAL 0.4 mg/dL (0.2-1.0); CARBON DIOXIDE,CO2 34.1 mmol/L (21.0-32.0); CREATININE 1.46 mg/dL (0.51-1.17); EST CRCL DRUG DOSING (CG) 35.2 mL/min; POTASSIUM,K 4.5 mmol/L (3.5-5.1); PROTEIN TOTAL,TP 6.3 g/dL (6.4-8.2)
[2024-08-23 08:55] LABS: CALCIUM 8.9 mg/dL (8.5-10.1)
[2024-08-23 08:56] LABS: ANION GAP 9.4 meq/L (7-15)
[2024-08-23] MEDS: Furosemide 40 MG/4 ML VIAL IVPUSH ONE (10:16)
[2024-08-23] MEDS: Furosemide 20 MG/2 ML VIAL IVPUSH ONE (17:10)
[2024-08-23] MEDS: REMDESIVIR 100 MG in Sodium Chloride 0.9% 100 ML IV SCH (17:11)
[2024-08-23] MEDS: Warfarin 2.5 MG Tab PO SCH (17:12)
[2024-08-23] MEDS ORDERED: Warfarin 2.5 MG Tab PO SCH (18:00)
[2024-08-24 08:48] LABS: ALBUMIN 2.7 g/dL (3.4-5.0); BILIRUBIN TOTAL 0.4 mg/dL (0.2-1.0); CALCIUM 8.8 mg/dL (8.5-10.1); CARBON DIOXIDE,CO2 34.9 mmol/L (21.0-32.0); CREATININE 1.75 mg/dL (0.51-1.17); EST CRCL DRUG DOSING (CG) 29.37 mL/min; POTASSIUM,K 4.5 mmol/L (3.5-5.1); PROTEIN TOTAL,TP 6.5 g/dL (6.4-8.2)
[2024-08-24 08:55] LABS: BASOPHILS ABSOLUTE AUTO 0.01 K/uL (0.00-0.20); BASOPHILS PERCENT AUTO 0.1 % (0.0-2.0); HEMATOCRIT 49.5 % (39.0-49.0); IMMATURE GRAN ABSOLUTE AUTO 0.04 10^3/uL (0.00-0.50); IMMATURE GRAN PERCENT AUTO 0.3 % (0.0-5.0); LYMPHOCYTES ABSOLUTE AUTO 1.87 K/uL (0.50-3.50); LYMPHOCYTES PERCENT AUTO 15.7 % (10.0-50.0); MEAN CORPUSCULAR HEMOGLOBIN 30.1 pg (28.2-33.3); MEAN CORPUSCULAR HGB CONC 32.3 g/dL (31.7-36.0); MEAN CORPUSCULAR VOLUME 93.2 fL (84.0-98.0); MONOCYTES ABSOLUTE AUTO 0.39 K/uL (0.00-1.00); MONOCYTES PERCENT AUTO 3.3 % (2.0-14.0); NEUTROPHILS ABSOLUTE AUTO 9.61 K/uL (1.40-7.00); NEUTROPHILS PERCENT AUTO 80.6 % (45.0-80.0); PLATELET COUNT,PLT 130 K/uL (150-350); RED BLOOD CELL COUNT 5.31 M/uL (4.33-5.41); RED CELL DISTRIBUTION WIDTH 13.1 % (11.2-14.1); WHITE BLOOD CELL COUNT,WBC 11.9 K/uL (4.0-10.2)
[2024-08-24 09:03] LABS: ANION GAP 9.6 meq/L (7-15)
[2024-08-24 09:07] LABS: INR 2.7 (0.9-1.1); PROTHROMBIN TIME 25.7 SEC (9.0-11.1)
[2024-08-24] MEDS: Sodium Chloride 0.9% 100 ML IV SCH (16:33)
[2024-08-24] MEDS: Warfarin 2.5 MG Tab PO SCH (18:35)
[2024-08-25 08:31] LABS: BASOPHILS ABSOLUTE AUTO 0.01 K/uL (0.00-0.20); BASOPHILS PERCENT AUTO 0.1 % (0.0-2.0); HEMATOCRIT 47.3 % (39.0-49.0); HEMOGLOBIN 15.7 g/dL (13.1-16.8); IMMATURE GRAN ABSOLUTE AUTO 0.05 10^3/uL (0.00-0.50); IMMATURE GRAN PERCENT AUTO 0.4 % (0.0-5.0); LYMPHOCYTES ABSOLUTE AUTO 1.91 K/uL (0.50-3.50); LYMPHOCYTES PERCENT AUTO 14.1 % (10.0-50.0); MEAN CORPUSCULAR HEMOGLOBIN 30.3 pg (28.2-33.3); MEAN CORPUSCULAR HGB CONC 33.2 g/dL (31.7-36.0); MEAN CORPUSCULAR VOLUME 91.3 fL (84.0-98.0); MONOCYTES ABSOLUTE AUTO 0.44 K/uL (0.00-1.00); MONOCYTES PERCENT AUTO 3.2 % (2.0-14.0); NEUTROPHILS ABSOLUTE AUTO 11.16 K/uL (1.40-7.00); NEUTROPHILS PERCENT AUTO 82.2 % (45.0-80.0); PLATELET COUNT,PLT 129 K/uL (150-350); RED BLOOD CELL COUNT 5.18 M/uL (4.33-5.41); RED CELL DISTRIBUTION WIDTH 12.9 % (11.2-14.1); WHITE BLOOD CELL COUNT,WBC 13.6 K/uL (4.0-10.2)
[2024-08-25 09:34] LABS: ALBUMIN 2.6 g/dL (3.4-5.0); BILIRUBIN TOTAL 0.4 mg/dL (0.2-1.0); CALCIUM 8.6 mg/dL (8.5-10.1); CARBON DIOXIDE,CO2 35.1 mmol/L (21.0-32.0); CREATININE 1.73 mg/dL (0.51-1.17); EST CRCL DRUG DOSING (CG) 29.71 mL/min; POTASSIUM,K 4.5 mmol/L (3.5-5.1); PROTEIN TOTAL,TP 6.1 g/dL (6.4-8.2)
[2024-08-25 09:35] LABS: ANION GAP 7.4 meq/L (7-15)
[2024-08-25 10:10] LABS: INR 2.9 (0.9-1.1); PROTHROMBIN TIME 27.9 SEC (9.0-11.1)
[2024-08-25 14:19] VITALS: BP 123/68; PULSE 69
[2024-08-26] MEDS ORDERED: SEMAGLUTIDE 0.25 MG/0.368 ML SQ SCH (08:00)
== END 2024-08-25 15:07 | disposition home or self-care (01) | DRG 73 ==
LOC: LL.ED 13:46 → LL.MS 16:33
PROVIDERS: ADMIT Physician Assistant; ATTEND Physician Assistant
DX: G90.9 Disorder of the autonomic nervous system, unspecified (principal); J81.0 Acute pulmonary edema; U07.1 COVID-19; J81.1 Chronic pulmonary edema; N17.9 Acute kidney failure, unspecified; I13.0 Hypertensive heart and chronic kidney disease with heart failure and stage 1 through stage 4 chronic kidney disease, or unspecified chronic kidney disease; I82.452 Acute embolism and thrombosis of left peroneal vein; E87.1 Hypo-osmolality and hyponatremia; D75.1 Secondary polycythemia; R55 Syncope and collapse; H26.9 Unspecified cataract; I48.91 Unspecified atrial fibrillation; I25.10 Atherosclerotic heart disease of native coronary artery without angina pectoris; I50.9 Heart failure, unspecified; E11.21 Type 2 diabetes mellitus with diabetic nephropathy; E78.00 Pure hypercholesterolemia, unspecified; K21.9 Gastro-esophageal reflux disease without esophagitis; N40.0 Benign prostatic hyperplasia without lower urinary tract symptoms; M19.90 Unspecified osteoarthritis, unspecified site; M10.9 Gout, unspecified; E11.42 Type 2 diabetes mellitus with diabetic polyneuropathy; E66.9 Obesity, unspecified; Z88.5 Allergy status to narcotic agent; H54.7 Unspecified visual loss; Z96.659 Presence of unspecified artificial knee joint; E11.22 Type 2 diabetes mellitus with diabetic chronic kidney disease; G47.00 Insomnia, unspecified; N18.2 Chronic kidney disease, stage 2 (mild); D58.2 Other hemoglobinopathies; Z99.81 Dependence on supplemental oxygen; Z86.16 Personal history of COVID-19; Z86.73 Personal history of transient ischemic attack (TIA), and cerebral infarction without residual deficits; Z88.8 Allergy status to other drugs, medicaments and biological substances; Z79.82 Long term (current) use of aspirin; Z79.4 Long term (current) use of insulin; Z79.2 Long term (current) use of antibiotics; Z79.1 Long term (current) use of non-steroidal anti-inflammatories (NSAID); Z79.01 Long term (current) use of anticoagulants; Z79.899 Other long term (current) drug therapy; Z68.30 Body mass index [BMI] 30.0-30.9, adult; I25.2 Old myocardial infarction; Z95.5 Presence of coronary angioplasty implant and graft; Z90.89 Acquired absence of other organs; Z95.2 Presence of prosthetic heart valve; Z90.49 Acquired absence of other specified parts of digestive tract; Z98.890 Other specified postprocedural states; Z90.79 Acquired absence of other genital organ(s)
CPT/HCPCS: 36415; 70450; 71275; 80053; 83880; 84484 ×2; 85025; 85379; 85610; 85730; 93005; 93010; 99285; Q9967; 36600; 80048; 82248; 82803; 82947; 83605; 83735; 87426-QW; 93971; 94640; 94660; 94761; 97162-GP; 97530-GP; 99223; 99232; 99233; 99238; A9270-GY; J0248; J1650; J1815-GY; J1940; J3490; J7040; J7050; J7120; J8540; U0002